=== PATIENT | female | born 1975 | race Two or more races ===

== ENCOUNTER 2020-01-17 14:02 | Outpatient (REF) | payer MEDICARE, MEDICAID, SELFPAY | END 2020-01-17 14:03 | disposition home or self-care (01) | LOC: HO.HMGCLDS 14:02 | PROVIDERS: PCP Internal Medicine; Visit Provider Internal Medicine | DX: Z20.828 Contact with and (suspected) exposure to other viral communicable diseases (principal) | CPT/HCPCS: 87635 ==

== ENCOUNTER 2020-05-12 14:32 | Outpatient (REF) | payer MEDICARE, MEDICAID, SELFPAY | END 2020-05-12 14:33 | disposition home or self-care (01) | LOC: HO.HMGCLDS 14:32 | PROVIDERS: PCP Internal Medicine; Visit Provider Internal Medicine | DX: Z20.822 Contact with and (suspected) exposure to COVID-19 (principal) | CPT/HCPCS: 36415; C9803; U0003; U0005 ==

== ENCOUNTER 2020-07-24 10:18 | Outpatient (REF) | payer MEDICARE, MEDICAID, SELFPAY | END 2020-07-24 10:19 | disposition home or self-care (01) | LOC: HO.HMGCLDS 10:18 | PROVIDERS: PCP Internal Medicine; Visit Provider Internal Medicine | DX: Z20.822 Contact with and (suspected) exposure to COVID-19 (principal) | CPT/HCPCS: C9803; U0003; U0005 ==

== ENCOUNTER 2020-08-05 08:12 | Outpatient (REF) | payer MEDICARE, MEDICAID, SELFPAY | END 2020-08-05 08:13 | disposition home or self-care (01) | LOC: HO.HMGCLDS 08:12 | PROVIDERS: PCP Internal Medicine; Visit Provider Internal Medicine | DX: Z20.822 Contact with and (suspected) exposure to COVID-19 (principal) | CPT/HCPCS: C9803; U0003; U0005 ==

== ENCOUNTER 2020-09-18 08:46 | Outpatient (REF) | payer MEDICARE, MEDICAID, SELFPAY | END 2020-09-18 08:47 | disposition home or self-care (01) | LOC: HO.HMGCLDS 08:46 | PROVIDERS: PCP Internal Medicine; Visit Provider Internal Medicine | DX: Z20.822 Contact with and (suspected) exposure to COVID-19 (principal) | CPT/HCPCS: C9803; U0003; U0005 ==

== ENCOUNTER 2020-11-10 13:37 | Outpatient (REF) | payer MEDICARE, MEDICAID, SELFPAY | END 2020-11-10 13:38 | disposition home or self-care (01) | LOC: HO.HMGCLDS 13:37 | PROVIDERS: PCP Internal Medicine; Visit Provider Internal Medicine | DX: Z20.822 Contact with and (suspected) exposure to COVID-19 (principal) | CPT/HCPCS: C9803; U0003; U0005 ==

== ENCOUNTER 2021-03-12 11:19 | Outpatient (REF) | payer MEDICARE, MEDICAID, SELFPAY ==
--- NOTE | ~2021-03-12 | CT_ITS ---
EXAMINATION: CT ABDOMEN AND PELVIS WITH CONTRAST CLINICAL INFORMATION: Right ovarian cyst COMPARISON: None TECHNIQUE: Multidetector volumetric images were obtained from the superior aspect of the liver through the pubic symphysis following administration 85 mL of Omnipaque 350 intravenous contrast. Sagittal and coronal reformatted images were obtained on the technologist's workstation. Oral contrast: Yes This CT examination was performed using dose optimization techniques as appropriate, variously including the following: *Automated exposure control *Adjustment of mA and/or kV according to patient size (this includes techniques or standardized protocols for targeted exams where dose is matched to indication/reason for exam; i.e. extremities or head) *Use of iterative reconstruction technique DLP: 302 mGy-cm FINDINGS: LUNG BASES: The visualized lung bases are unremarkable. LIVER, GALLBLADDER, AND BILIARY TREE: The liver is normal in size, shape, and attenuation. There is a 5 mm low-attenuation lesion in the medial segment of the left lobe of the liver axial image 17 series 3. This is too small to characterize but probably represents a small cyst. No other focal hepatic lesion or biliary ductal dilatation is present. The gallbladder is unremarkable with no evidence of radiopaque gallstones, gallbladder wall thickening, or obvious pericholecystic inflammatory changes. PANCREAS: Unremarkable. SPLEEN: Unremarkable. ADRENAL GLANDS: Unremarkable. KIDNEYS AND URETERS: The kidneys are normal in size, shape, and attenuation. No hydronephrosis, hydroureter, or calculi seen. No perinephric stranding. BLADDER: Unremarkable. GASTROINTESTINAL TRACT: The small and large bowel are unremarkable. The appendix is is not identified. No inflammatory changes are seen in the right lower quadrant.. ABDOMINAL WALL: No significant hernia is appreciated. LYMPH NODES: Normal. VASCULAR: Unremarkable. PELVIC VISCERA: There is a 2 cm simple-appearing right ovarian cyst. There is a 1.8 cm lesion in the left uterine body probably representing a fibroid. OSSEOUS STRUCTURES: Unremarkable. CT/CT abdomen pelvis w con IMPRESSION: Small 2 cm right ovarian cyst. 1.8 cm lesion in the left uterine body probably representing a fibroid. Fleischner guidelines were followed.
[2021-03-12] MEDS: iohexoL 350 MG/ML 100 ML INFUS..BTL IV (12:41)
== END 2021-03-12 11:20 | disposition home or self-care (01) ==
LOC: HO.CT 11:19
PROVIDERS: PCP Internal Medicine; Visit Provider Internal Medicine
DX: N83.201 Unspecified ovarian cyst, right side (principal)
CPT/HCPCS: 74177; Q9967

== ENCOUNTER 2021-03-18 14:36 | Outpatient (REF) | payer MEDICARE, MEDICAID, SELFPAY ==
[2021-03-18 16:31] LABS: Alanine Aminotransferase 16 U/L (0-31); Albumin Level 4.3 g/dL (3.5-5.0); Alkaline Phosphatase 79 U/L (39-117); Anion Gap 13 (12-20); Aspartate Amino Transferase 17 U/L (5-31); Bilirubin Total 0.3 mg/dL (0.0-1.0); Blood Urea Nitrogen 10 mg/dL (9-16); Calcium 9.7 mg/dL (8.4-10.2); Carbon Dioxide 24 mmol/L (22-29); Chloride 106 mmol/L (96-108); Estimated Glomerular Filt Rate > 60; Glucose Random 84 mg/dL (60-115); Potassium 4.4 mmol/L (3.3-5.1); Sodium 139 mmol/L (135-145); Total Protein 7.3 g/dL (6.5-8.0)
== END 2021-03-18 14:37 | disposition home or self-care (01) ==
LOC: HO.LAB 14:36
PROVIDERS: PCP Internal Medicine; Referring Provider Internal Medicine; Visit Provider Nurse Practitioner
DX: K21.9 Gastro-esophageal reflux disease without esophagitis (principal)
CPT/HCPCS: 36415; 80053; 99202

== ENCOUNTER 2021-06-17 08:59 | Outpatient (REF) | payer MEDICARE, MEDICAID, SELFPAY ==
--- NOTE | ~2021-06-17 | US_ITS ---
EXAMINATION: US ABDOMEN COMPLETE CLINICAL INFORMATION: Gastroesophageal reflux disease without esophagitis. COMPARISON: CT abdomen and pelvis 03/12/2021. TECHNIQUE: Real-time imaging of the abdominal viscera. FINDINGS: PANCREAS: Normal. ABDOMINAL AORTA: The proximal and mid aorta are normal in appearance. The distal aorta is obscured by bowel gas. INFERIOR VENA CAVA: Visualized portions are normal. LIVER: The liver is normal in size. The liver contour is normal. Parenchymal echogenicity is normal. There is a simple cyst in the inferior right hepatic lobe measuring up to 0.8 cm. There is no intrahepatic biliary duct dilatation seen. GALLBLADDER: Normal. The gallbladder is physiologically distended without evidence of stones, sludge, polyps, wall thickening or pericholecystic fluid. COMMON BILE DUCT: Normal in caliber measuring 0.4 cm in diameter. RIGHT KIDNEY: Normal. No hydronephrosis. No renal calculi or focal parenchymal lesions. The kidney measures 10.7 cm in maximum dimension. LEFT KIDNEY: Normal. No hydronephrosis. No renal calculi or focal parenchymal lesions. The kidney measures 9.8 cm in maximum dimension. SPLEEN: Normal. The spleen measures 8.4 cm in maximum dimension. FREE FLUID: None. US/US abdomen complete IMPRESSION: Simple cyst in the right hepatic lobe. Otherwise normal abdominal ultrasound.
== END 2021-06-17 09:00 | disposition home or self-care (01) ==
LOC: HO.US 08:59
PROVIDERS: PCP Internal Medicine; Visit Provider Nurse Practitioner
DX: K21.9 Gastro-esophageal reflux disease without esophagitis (principal)
CPT/HCPCS: 76700

== ENCOUNTER → 2021-07-02 11:04 | Outpatient (BNVA) | payer MEDICARE, MEDICAID, SELFPAY | PROVIDERS: PCP Internal Medicine; Referring Provider Internal Medicine; Visit Provider Nurse Practitioner | DX: K21.9 Gastro-esophageal reflux disease without esophagitis (principal); R10.13 Epigastric pain | CPT/HCPCS: 99212 ==

== ENCOUNTER 2021-07-14 11:52 | Day surgery (SDC) | payer MEDICARE, MEDICAID, SELFPAY ==
[2021-07-14 13:04] LABS: UPreg QC Valid YES; Urine Pregnancy NEGATIVE (NEGATIVE)
[2021-07-14 13:16] VITALS: BMI 25.7
[2021-07-14 13:18] VITALS: BP 139/77; PULSE 56; RESP 16; TEMP 36.9; O2SAT 100
[2021-07-14] MEDS: Lactated Ringers 1,000 ML 50 ML IVCONT (13:59)
--- NOTE | 2021-07-14 13:59 | MHC.SHP ---
Pre-Procedural Eval Section A Date of Service: 07/14/21 Section B Chief Complaint: GERD Relevant Family History (Specify if Yes): No Relevant Social History: None Present Medications: see Short Stay Collaborative assessment Medical History: Significant History (asthma, fibromyalgia, degen disc disease) History of Previous Operations: No relevant previous surgery Allergies: Allergies Allergy/AdvReac Type Severity Reaction Status Date / Time No Known Allergies Allergy Verified 07/02/21 11:12 Review of Systems Sugical H&P ROS: Negative: Constitution, Cardiovascular, Respiratory, Neurological, Psychiatric, Hem-Onc, Allergic/Immunologic, Gastrointestinal, Genitourinary, Musculoskeletal, Integumentary, Endocrine and Eyes/Ears/Nose/Throat Exam Surgical H&P Exam: Normal: HEENT, Normal: Heart, Normal: Lungs, Normal: Extremities, Normal: Abdomen, Normal: Skin and Normal: Neurological Plan Diagnosis/Plan: Unchanged I have reviewed the history and physical and performed a pertinent physical examination on my patient. No changes have occurred unless specified.
--- NOTE | 2021-07-14 14:00 | PM.OP ---
Brief Operative Note Date of Service: 07/14/21 Pre-op diagnosis: GERD Post-op diagnosis: same Procedure: see op note Surgeon: Imtiaz Marcelino MD Anesthesia: MAC Was an Dynamometer Tester used for this Procedure?: No Estimated blood loss (mL): 0 Condition: stable Disposition: PACU
--- NOTE | 2021-07-14 14:01 | W.PM.OPN ---
Operative Note Operative Note Date of Service: 07/14/21 Narrative: Procedure Description: EGD Indication: GERD Anesthesia: MAC FLEXIBLE TRANSORAL UPPER GASTROINTESTINAL ENDOSCOPY UPPER ENDOSCOPY Consent: Indications for the procedure and potential complications of bleeding, perforation, reaction to medications and missed diagnosis were discussed with the patient and informed consent was obtained. Instrument: Olympus GIF H 190 J mid size upper endoscope Monitoring: Vital signs and clinical assessment, continuous EKG monitoring, Pulse oximetry, Carbon Dioxide monitoring and blood pressure monitoring were done throughout the procedure. Procedure: The patient was placed in the left lateral decubitis position and pre-procedure medications were administered and a bite block was placed. The endoscope was inserted into the mouth and advanced under direct vision to the third part of duodenum. A careful inspection was made as the upper endoscope was withdrawn including a retroflexed examination of the proximal stomach; Findings and interventions are described below. Findings: Larynx:normal Esophagus: GE junction at 38 cm, diaphragm hiatus at 38 cm, bogginess and erythema at GEJ. Bx taken from GEJ and random esophagus Stomach: Normal appearing mucosa. Biopsies were obtained. Grade 2 flap valve on retroflexed examination of the cardia. There was minimal gastric peristalsis. Duodenum: Normal bulb and descending duodenum, bx taken Intervention: Biopsies as noted above Impression/Findings: esophagitis possible gastroparesis PLAN: await BX, consider changing PPI as she has ongoing sx gastric emptying study, confirm drug hx
[2021-07-14 14:20] VITALS: BP 96/45; PULSE 59; RESP 16; TEMP 36.4; O2SAT 98
[2021-07-14 14:36] VITALS: BP 136/83; PULSE 57; RESP 16; TEMP 36.3; O2SAT 100
== END 2021-07-14 15:08 | disposition home or self-care (01) ==
PROVIDERS: Internal Medicine; PCP Internal Medicine; Visit Provider Internal Medicine Gastroenterology
PROC: 0DJ08ZZ Inspection of Upper Intestinal Tract, Via Natural or Artificial Opening Endoscopic (ICD-10-PCS; CPT 43235; principal; 2021-07-14 15:00)
DX: K21.00 Gastro-esophageal reflux disease with esophagitis, without bleeding (principal); K44.9 Diaphragmatic hernia without obstruction or gangrene; Z79.899 Other long term (current) drug therapy
CPT/HCPCS: 43239; 81025; 88305; 88342; J3010

== ENCOUNTER → 2021-08-03 14:10 | Outpatient (BNVA) | payer MEDICARE, MEDICAID, SELFPAY | PROVIDERS: PCP Internal Medicine; Referring Provider Internal Medicine; Visit Provider Nurse Practitioner | DX: K21.9 Gastro-esophageal reflux disease without esophagitis (principal); R10.13 Epigastric pain | CPT/HCPCS: 99212 ==

== ENCOUNTER 2021-08-10 15:12 | Outpatient (REF) | payer MEDICARE, MEDICAID, SELFPAY ==
--- NOTE | ~2021-08-10 | MM_ITS ---
EXAMINATION: MM SCREENING DIGITAL BREAST TOMOSYNTHESIS, BILATERAL CLINICAL INFORMATION: Screening. Asymptomatic. The lifetime risk of breast cancer based on the Tyrer-Cuzick Model is 12%. COMPARISON: Mammography: 10/25/2018 (baseline) TECHNIQUE: Digital breast tomosynthesis is performed in both the craniocaudal and mediolateral oblique views along with computer-aided detection (CAD). Synthesized 2D images are generated from the tomosynthesis. FINDINGS: The breasts are heterogeneously dense, which may obscure small masses (ACR BI-RADS breast composition Category c). Breast tissue composition borders on extremely dense. There is a fibronodular parenchymal pattern similar to prior exam. No significant mass or architectural abnormality or abnormal calcifications. The axilla and skin contours are unremarkable. MM/MM tomosynthesis screening BI IMPRESSION: No mammographic evidence of malignancy. ASSESSMENT: BI-RADS 1: Negative RECOMMENDATION: Routine annual mammography screening. This patient's information was entered into a reminder system with a target due date for their next mammogram.
== END 2021-08-10 15:13 | disposition home or self-care (01) ==
LOC: HO.MAMMO 15:12
PROVIDERS: Visit Provider Internal Medicine
DX: Z12.31 Encounter for screening mammogram for malignant neoplasm of breast (principal)
CPT/HCPCS: 77063; 77067

== ENCOUNTER 2021-08-17 12:53 | Outpatient (REF) | payer MEDICARE, MEDICAID, SELFPAY ==
[2021-08-17 13:29] LABS: Binax Internal Control QC Valid; Binax Now Covid-19 Ag Negative (Negative); Binax Performed by: HO.BONILM
== END 2021-08-17 12:54 | disposition home or self-care (01) ==
LOC: HO.HMGCLDS 12:53
PROVIDERS: Visit Provider Internal Medicine
DX: Z13.89 Encounter for screening for other disorder (principal)

== ENCOUNTER → 2021-08-21 08:11 | Outpatient (REF) | payer MEDICARE, MEDICAID, SELFPAY ==
--- NOTE | ~2021-08-21 | NM_ITS ---
EXAMINATION: NM RADIONUCLIDE SOLID FOOD GASTRIC EMPTYING 4-HOUR STUDY CLINICAL INFORMATION: Status post hysterectomy. Now presents with abdominal pain, bloating and gas. COMPARISON: None TECHNIQUE: A standard meal consisting of 4 oz of Egg Beaters brand tagged with 0.77 microcuries Tc-99m Sulfur Colloid labeled with 8 OZ Ensure was administered orally to the patient. Images were obtained using a dual head gamma camera in the anterior and posterior projections over of the stomach immediately post ingestion and at hourly intervals up to 4 hours post ingestion. The anterior and posterior counts at each time interval were averaged using the geometric mean and expressed as percentage of the immediate post ingestion counts. FINDINGS: There is good visualization of activity in the stomach immediately post ingestion. As the study progresses, there is good clearance of activity from the stomach and visualization of progressively increasing small bowel activity. By the end of the study, there is almost no retention noted in the stomach. Retention in the stomach at each time interval was: 1 hour 59% (normal 37%-90%) 2 hours 37% (normal 30%-60%) 3 hours 14% 4 hours 4% (normal 0%-10%) NM/NM gastric emptying study IMPRESSION: Normal 4-hour solid food gastric emptying study.
== END ==
LOC: HO.NUCMED 08:11
PROVIDERS: PCP Internal Medicine; Visit Provider Internal Medicine Gastroenterology
DX: R68.81 Early satiety (principal)
CPT/HCPCS: 78264; A9541

== ENCOUNTER 2021-08-27 12:39 | Outpatient (REF) | payer MEDICARE, MEDICAID, SELFPAY ==
--- NOTE | ~2021-08-27 | XR_ITS ---
EXAMINATION: XR CHEST CLINICAL INFORMATION: Moderate, persistent asthma COMPARISON: 03/22/2019 TECHNIQUE: 2 views of the chest were obtained. FINDINGS: No significant abnormality is noted involving the heart, lungs, mediastinum, bony thorax or soft tissues. XR/XR chest 2V IMPRESSION: Unremarkable examination. No interval change
[2021-08-27 13:26] LABS: MANUAL DIFF FLAG NO
[2021-08-27 13:35] LABS: Basophils Percent Auto 0.7 % (0-2); Eosinophils Absolute Auto 0.2 X10*3/uL (0.0-0.4); Hematocrit 34.6 % (37.0-47.0); Hemoglobin 10.5 g/dl (12.0-16.0); Imm Gran Abs Auto 0.01 X10*3/uL (0.00-0.03); Imm Gran Pct Auto 0.2 % (0.0-0.4); Lymphocytes Absolute Auto 1.4 X10*3/uL (1.2-4.9); Lymphocytes Percent Auto 24.2 % (20-40); Mean Corpuscular HGB Conc 30.3 g/dl (31.0-35.0); Mean Corpuscular Hemoglobin 22.7 pg (27.0-33.0); Mean Corpuscular Volume 74.9 fL (80.0-98.0); Mean Platelet Volume 10.4 fL (9.4-12.3); Monocytes Absolute Auto 0.8 X10*3/uL (0.1-1.2); Monocytes Percent Auto 13.1 % (2-11); Neutrophils Absolute Auto 3.5 x10*3/uL (2.0-8.3); Neutrophils Percent Auto 58.8 % (45-73); Platelet Count 369 X10*3/uL (160-400); Red Blood Count 4.62 X10*6/uL (4.20-5.50); Red Cell Distribution Width 19.1 % (11.0-16.0)
[2021-08-27 14:18] LABS: Alanine Aminotransferase 24 U/L (0-31); Albumin Level 4.1 g/dL (3.5-5.0); Alkaline Phosphatase 90 U/L (39-117); Anion Gap 10 (12-20); Aspartate Amino Transferase 17 U/L (5-31); Bilirubin Total 0.5 mg/dL (0.0-1.0); Blood Urea Nitrogen 10 mg/dL (9-16); Calcium 9.3 mg/dL (8.4-10.2); Carbon Dioxide 24 mmol/L (22-29); Chloride 107 mmol/L (96-108); Estimated Glomerular Filt Rate > 60; Glucose Random 90 mg/dL (60-115); Potassium 4.2 mmol/L (3.3-5.1); Sodium 137 mmol/L (135-145); Total Protein 7.2 g/dL (6.5-8.0)
== END 2021-08-27 12:40 | disposition home or self-care (01) ==
LOC: HO.XRAY 12:39
PROVIDERS: PCP Internal Medicine; Visit Provider Internal Medicine
DX: J45.41 Moderate persistent asthma with (acute) exacerbation (principal)
CPT/HCPCS: 36415; 71046; 80053; 85025

== ENCOUNTER → 2021-08-28 10:52 | Outpatient (BNVA) | payer SELFPAY | PROVIDERS: PCP Internal Medicine | DX: Z11.1 Encounter for screening for respiratory tuberculosis (principal) ==

== ENCOUNTER 2021-09-09 12:14 | Outpatient (REF) | payer OTHER, MEDICAID, SELFPAY ==
[2021-09-09 12:41] LABS: Binax Internal Control QC Valid; Binax Now Covid-19 Ag Negative (Negative); Binax Performed by: HO.BONILM
[2021-09-09 13:59] LABS: Hemoglobin 10.2 g/dl (12.0-16.0); Mean Corpuscular Hemoglobin 22.9 pg (27.0-33.0); Mean Corpuscular Volume 76.4 fL (80.0-98.0); Mean Platelet Volume 10.1 fL (9.4-12.3); Platelet Count 410 X10*3/uL (160-400); Red Blood Count 4.45 X10*6/uL (4.20-5.50); Red Cell Distribution Width 19.7 % (11.0-16.0); White Blood Count 5.6 X10*3/uL (4.8-10.8)
[2021-09-09 14:19] LABS: Thyroid Stimulating Hormone 0.89 uIU/mL (0.32-4.0)
[2021-09-09 14:37] LABS: Anion Gap 11 (12-20); Blood Urea Nitrogen 8 mg/dL (9-16); Calcium 9.5 mg/dL (8.4-10.2); Carbon Dioxide 25 mmol/L (22-29); Chloride 107 mmol/L (96-108); Estimated Glomerular Filt Rate > 60; Glucose Random 81 mg/dL (60-115); Potassium 4.8 mmol/L (3.3-5.1); Sodium 138 mmol/L (135-145)
== END 2021-09-09 12:15 | disposition home or self-care (01) ==
LOC: HO.HMGCLDS 12:14
PROVIDERS: Visit Provider Internal Medicine
DX: R53.83 Other fatigue (principal); J06.9 Acute upper respiratory infection, unspecified; Z20.822 Contact with and (suspected) exposure to COVID-19
CPT/HCPCS: 80048; 84443; 85027; 87811; C9803

== ENCOUNTER 2022-03-16 14:56 | Outpatient (REF) | payer OTHER, MEDICAID, SELFPAY ==
[2022-03-16 15:59] LABS: Influenza A PCR NEGATIVE (Negative); Influenza B PCR NEGATIVE (Negative); Resp Syncy Virus RNA Qual PCR NEGATIVE (Negative); SARS COV2 PCR INHOUSE NEGATIVE (Negative)
== END 2022-03-16 14:57 | disposition home or self-care (01) ==
LOC: HO.LAB 14:56
PROVIDERS: PCP Internal Medicine; Visit Provider Internal Medicine
DX: U07.1 COVID-19 (principal)
CPT/HCPCS: 0241U

== ENCOUNTER 2022-09-20 08:28 | Outpatient (REF) | payer OTHER, MEDICAID, SELFPAY ==
--- NOTE | ~2022-09-20 | MR_ITS ---
EXAMINATION: MR LUMBAR SPINE WITHOUT CONTRAST CLINICAL INFORMATION: Left-sided sciatica. COMPARISON: None available. TECHNIQUE: MRI of the lumbar spine was obtained using routine sequences without contrast. Slightly limited study with motion artifacts. FINDINGS: The discs are well-hydrated. There are no compression fractures or subluxations. The marrow signal is normal. There is no central canal stenosis. Very mild facet arthropathy noted at the L5-S1 level with a shallow left subarticular zone disc protrusion. No nerve root impingement is seen. The neural foramina are otherwise patent. The distal cord, conus tip, and cauda equina nerve roots are normal. The paraspinal soft tissues are unremarkable. MR/MR lumbar spine wo con IMPRESSION: Small left subarticular zone disc protrusion at the L5-S1 level without nerve root impingement. Additional mild facet arthropathy at this level. Otherwise, no central canal stenosis or foraminal narrowing.
== END 2022-09-20 08:29 | disposition home or self-care (01) ==
LOC: HO.MRI 08:28
PROVIDERS: PCP Internal Medicine; Visit Provider Internal Medicine
DX: M54.32 Sciatica, left side (principal)
CPT/HCPCS: 72148

== ENCOUNTER 2022-10-19 09:17 | Outpatient (AMB) | payer OTHER, MEDICAID, SELFPAY ==
--- NOTE | 2022-10-19 09:23 | A.OFFVIS_ITS ---
Intake Vital Signs 10/19/22 09:25 Height 5 ft 3 in Weight 167 lb 8.821 oz BMI 29.7 BP 134/74 Blood Pressure Location Lt brachial Position Sitting Pulse 55 Intake Visit Reasons: 6 week follow up Intake Note: Marivel presents in the office as a 6 week follow up. CC: She is not having any concerns. 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 She has occasional chills, but no N/V or fevers. She did not receive both the protonix and the famotidine, it sounds like she only has the famotidine. I will start a course of carafate 2 pills q noon to help and it the diarrhea persists will consider stool testing. She had some sort of study ordered by another provider that she needs to reschedule. She says that the leisa who did my camera procedure wants me to follow up with him. ROV 6 weeks with me, with Dr. Marcelino after gastric emptying study. (2) Epigastric pain: ?Code(s): R10.13 - Epigastric pain ? ? ? Medications: Refilled pantoprazole (Prot dimas) 40 mg? PO DAILY 3 0 days 30 tabs 6RF K21.9 - Gastro-eso phageal reflux dis ease without esoph agitis, R10.13 - E pigastric pain ? TODAY'S VISIT She ran out of the pantorpazole in the am but has had the famotidine. She recently had a hysterectomy and since then has had LLQ pain prior to BM in the am and a great deal of bloating. Will try bentyl 10mg qhs and qam 1-2 tabs and simethicone. Rov 4 weeks. PFSH Social History (Updated 10/19/22 @ 09:28 by JYOTI Vila) Alcohol intake: never Patient Tobacco Use Status: Never used Tobacco Review of Systems Const Denies fatigue, Denies fever(s), Denies night sweats, Denies poor appetite and Denies weight loss ENT Reports Normal hearing present, Denies dental pain, Denies dysphagia, Denies hearing loss, Denies mouth pain, Denies odynophagia, Denies throat swelling, Denies tongue swelling and Reports other (Dentition adequate) Card Reports no additional complaints Resp Reports no additional complaints GI Reports abdominal pain, Denies melena, Denies bloating, Denies hematochezia, Denies constipation, Reports GI cramping, Denies dysphagia, Denies excessive flatus, Denies early satiety, Reports heartburn, Denies diarrhea, Denies nausea, Denies odynophagia, Denies vomiting and Denies hematemesis Skin/Breast Denies pruritus, Denies lesions, Denies rash and Denies jaundice Neuro Reports Normal hearing present and Denies Abnormal speech present Endo Denies fatigue Aller/Immun Denies throat swelling and Denies tongue swelling Physical Exam Vital Signs: Last Vital Signs Pulse 55 10/19/22 09:25 BP 134/74 10/19/22 09:25 BMI result Body Mass Index 29.7 Const General: cooperative, no acute distress, well developed and well groomed Nutritional Appearance: average body habitus and well nourished Orientation/consciousness: oriented to person, oriented to place and oriented to time Limitations: No language barrier HEENT Head: Yes normocephalic and Yes atraumatic Eyes General: appearance normal, both eyes and all related structures Pupils: Equal, round and reactive pupils present Neck Neck: Yes normal visual inspection and Yes no lymphadenopathy Thyroid: Thyroid normal Resp Effort & Inspection: normal respiratory effort and able to speak in complete sentences Auscultation: clear to auscultation bilaterally Cardio Rate: regular rate Rhythm: regular rhythm Heart sounds: Normal, physiologic split S2 sound present Peripheral pulses: radial pulses present and posterior tibial pulses present GI Inspection: Yes distended and No Abdominal panniculus present Palpation (GI): Soft to palpation, nontender, no guarding, not rigid and No hepatosplenomegaly present Percussion: Yes normal to percussion Auscultation: normal bowel sounds Rectal Exam - Female: deferred Skin General skin exam: no rashes or lesions noted, turgor normal, skin not dry, no jaundice, No spider nevi and no striae Rashes: no rashes Nails: normal Neuro General: oriented to person, oriented to place and oriented to time Cranial nerves: Yes Equal, round and reactive pupils present and Yes Normal hearing present Speech: No Abnormal speech present Extrem General: Yes normal to inspection, No clubbing, No cyanosis and No edema Psych Appearance: grossly normal and well kempt Mental Status: mental status grossly normal Speech and movement: Normal speech and movement present Affect: normal affect Attitude: cooperative Thought process: Normal thought process present and not confabulating Thought content: Normal thought content present Insight: Limited insight present (Psych) Judgement: Limited judgement present (Psych) Assessment & Plan Assessment & Plan (1) Epigastric pain: Code(s): R10.13 - Epigastric pain Plan: She ran out of the pantorpazole in the am but has had the famotidine. She recently had a hysterectomy and since then has had LLQ pain prior to BM in the am and a great deal of bloating. Will try bentyl 10mg qhs and qam 1-2 tabs and simethicone. Rov 4 weeks. (2) GERD (gastroesophageal reflux disease): Code(s): K21.9 - Gastro-esophageal reflux disease without esophagitis (3) Hx of hysterectomy: Code(s): Z90.710 - Acquired absence of both cervix and uterus (4) Abdominal cramping: Code(s): R10.9 - Unspecified abdominal pain Medications: New dicyclomine 10 mg PO QID 120 caps 6RF R10.9 - Unspecified abdominal pain Refilled pantoprazole (Protonix) 40 mg PO DAILY 30 tabs 6RF 30 days K21.9 - Gastro-esop hageal reflux disease without esophagitis, R10.13 - Epigastric pain famotidine 40 mg PO BEDTIME 90 tabs 2RF Coding Level of Care Code Est Pt Level 3 (02482) Diagnoses Epigastric pain R10.13 GERD (gastroesophageal reflux disease) K21.9 Hx of hysterectomy Z90.710 Abdominal cramping R10.9
[2022-10-19 09:25] VITALS: BP 134/74; PULSE 55; BMI 29.7
== END 2022-10-19 10:05 | disposition home or self-care (01) ==
PROVIDERS: PCP Internal Medicine; Visit Provider Nurse Practitioner
DX: R10.13 Epigastric pain (principal); K21.9 Gastro-esophageal reflux disease without esophagitis; Z90.710 Acquired absence of both cervix and uterus; R10.9 Unspecified abdominal pain
CPT/HCPCS: 99213

== ENCOUNTER → 2022-10-19 09:17 | Outpatient (BNVA) | payer OTHER, MEDICAID, SELFPAY | PROVIDERS: PCP Internal Medicine; Visit Provider Nurse Practitioner ==

== ENCOUNTER 2023-01-24 10:11 | Outpatient (AMB) | payer OTHER, MEDICAID, SELFPAY ==
--- NOTE | 2023-01-24 10:14 | A.OFFVIS_ITS ---
Intake Vital Signs 01/24/23 10:19 Height 5 ft 3 in Weight 162 lb 8 oz BMI 28.8 BP 104/60 Blood Pressure Location Lt brachial Position Sitting Pulse 58 Pulse Source Pulse Oximeter Pulse Oximetry (%) 98 Oxygen Delivery Method Room Air Intake Visit Reasons: ENP-Bilateral leg numbness - Confirmed Intake Note: NPV for Bilateral numbness of legs Allergies No Known Allergies Allergy (Verified 01/24/23 10:15) HPI HPI Comments History of Present Illness Details 47 y/o female patient presents for new i n-person visit for lower back pain and bilateral legs and feet numbness. Pt reports the mid-lower back pain started many years ago and has worsened over the last couple of months. Pt states that the lower back electric shooting pain radiates to bilateral legs and feet. She has more pain on her right side of her back. She states that she needs to take a rest when she going up and down stairs due to back pain and leg heaviness. She denies back injury, but mentioned that she fell couple of times on the ice this year. Pt uses two pillows on her back while she is sitting to relieve the pain. She massage her feet usually and has sharp pain on her middle of foot and it radiates to upper legs. The lumbar spine MRI result reviewed. Small left subarticular zone disc protrusion at the L5-S1 level without nerve root impingement. Additional mild facet arthropathy at this level. Otherwise, no central canal stenosis or foraminal narrowing. Pt tried physical therapy couple of years ago but it did not help for back and pain. PFSH Family History (Updated 01/24/23 @ 10:19 by Melanie Jackson CMA) Family/Other Breast cancer Social History (Updated 01/24/23 @ 10:19 by Melanie Jackson CMA) Alcohol intake: never Patient Tobacco Use Status: Never used Tobacco Review of Systems Const All systems reviewed & are unremarkable except as noted in HPI and below ENT Reports Normal hearing present Neuro Reports Normal hearing present Physical Exam Vital Signs: Last Vital Signs Pulse 58 01/24/23 10:19 BP 104/60 01/24/23 10:19 Pulse Ox 98 01/24/23 10:19 Oxygen Delivery Method Room Air 01/24/23 10:19 BMI result Body Mass Index 28.8 Const General: cooperative Nutritional Appearance: overweight Orientation/consciousness: patient oriented x3 Neck Other: Bilateral trapezius muscle tightenss. Neck: Yes full ROM and Yes supple Resp Effort & Inspection: normal respiratory effort and able to speak in complete sentences Back/Spine/Pelvis Other: mild to lower back muscle pain R>L. Neuro General: patient oriented x3 and moves all extremities Cranial nerves: Yes Bilaterally intact EOM present, Yes Normal facial strength present, Yes Midline tongue present, Yes Normal hearing present, Yes Ability to bilaterally rotate head present and Yes Ability to bilaterally elevate shoulders present Cognition (Neuro): normal cognition Gait exam (Neuro): Antalgic gait present Motor exam (neuro): 5/5 motor strength present throughout, Pronator motor function not present and no tremor noted Deep tendon reflexes (DTR's): Right brachioradialis reflex intensity grade: 2+, Left brachioradialis reflex intensity grade: 2+, Right patellar reflex intensity grade: 2+ and Left patellar reflex intensity grade: 2+ Psych Appearance: grossly normal Mental Status: mental status grossly normal Speech and movement: Normal speech and movement present Affect: normal affect Attitude: cooperative Assessment & Plan Assessment & Plan (1) Lower back pain: Code(s): M54.50 - Low back pain, unspecified (2) Lumbar degenerative disc disease: Code(s): M51.36 - Other intervertebral disc degeneration, lumbar region (3) Numbness in feet: Code(s): R20.0 - Anesthesia of skin Plan Refer patient to physiatry for lower back pain. Advised patient to try baclofen 5 mg with magnesium 400 mg qHS for muscle spasm. Orders: Referrals Physiatry Referral M51.36 - Other intervertebral disc degeneration, lumbar region, M54.32 - Sciatica, left side, M54.9 - Dorsalgia, unspecified Medications: New baclofen 5 mg PO BEDTIME 30 days 30 tabs 1RF magnesium oxide 400 mg PO DAILY 30 days 30 tabs 6RF Coding Level of Care Code New Pt Level 4 (85266) Diagnoses Lower back pain M54.50 Lumbar degenerative disc disease M51.36 Numbness in feet R20.0
[2023-01-24 10:19] VITALS: BP 104/60; PULSE 58; O2SAT 98; BMI 28.8
== END 2023-01-24 10:54 | disposition home or self-care (01) ==
PROVIDERS: PCP Internal Medicine; Visit Provider Nurse Practitioner Family
DX: M54.50 Low back pain, unspecified (principal); M51.36 Other intervertebral disc degeneration, lumbar region; R20.0 Anesthesia of skin
CPT/HCPCS: 99204

== ENCOUNTER → 2023-01-24 10:11 | Outpatient (BNVA) | payer OTHER, MEDICAID, SELFPAY | PROVIDERS: PCP Internal Medicine; Visit Provider Nurse Practitioner Family ==

== ENCOUNTER 2023-05-07 10:43 | Outpatient (REF) | payer MEDICARE, SELFPAY ==
[2023-05-07 12:49] LABS: Basophils Absolute Auto 0.1 X10*3/uL (0.0-0.2); Basophils Percent Auto 0.9 % (0-2); Eosinophils Absolute Auto 0.5 X10*3/uL (0.0-0.4); Eosinophils Percent Auto 6.7 % (0-4); Hematocrit 39.1 % (37.0-47.0); Hemoglobin 13.2 g/dl (12.0-16.0); Imm Gran Abs Auto 0.01 X10*3/uL (0.00-0.03); Imm Gran Pct Auto 0.1 % (0.0-0.4); Lymphocytes Absolute Auto 1.1 X10*3/uL (1.2-4.9); Lymphocytes Percent Auto 16.3 % (20-40); MANUAL DIFF FLAG SCAN; Mean Corpuscular HGB Conc 33.8 g/dl (31.0-35.0); Mean Corpuscular Hemoglobin 29.3 pg (27.0-33.0); Mean Corpuscular Volume 86.7 fL (80.0-98.0); Monocytes Percent Auto 14.4 % (2-11); Neutrophils Absolute Auto 4.1 x10*3/uL (2.0-8.3); Neutrophils Percent Auto 61.6 % (45-73); PLT CLUMP 1; Red Blood Count 4.51 X10*6/uL (4.20-5.50); Red Cell Distribution Width 12.9 % (11.0-16.0); SCAN SMEAR FLAG 1
[2023-05-07 13:37] LABS: White Blood Count 6.7 X10*3/uL (4.8-10.8)
[2023-05-07 13:39] LABS: SLIDE REVIEW VERIFIED
[2023-05-07 13:40] LABS: Rheumatoid Factor < 13.0 IU/mL (<15.0)
[2023-05-07 13:45] LABS: Alanine Aminotransferase 22 U/L (0-31); Alkaline Phosphatase 94 U/L (39-117); Anion Gap 15 (12-20); Aspartate Amino Transferase 22 U/L (5-31); Bilirubin Total 0.4 mg/dL (0.0-1.0); Blood Urea Nitrogen 8 mg/dL (9-16); Calcium 9.1 mg/dL (8.4-10.2); Carbon Dioxide 20 mmol/L (22-29); Chloride 109 mmol/L (96-108); Estimated Glomerular Filt Rate > 60; Glucose Random 69 mg/dL (60-115); Potassium 3.9 mmol/L (3.3-5.1); Sodium 140 mmol/L (135-145); Total Protein 7.3 g/dL (6.5-8.0)
[2023-05-16 09:59] LABS: ANA Pattern 2 Nuclear, Homogeneous; Anti Nuclear Antibody Pattern Nuclear, Nucleolar; Anti Nuclear Antibody Screen POSITIVE (NEGATIVE)
== END 2023-05-07 10:44 | disposition home or self-care (01) ==
LOC: HO.LAB 10:43
PROVIDERS: PCP Internal Medicine; Visit Provider Internal Medicine
DX: R60.0 Localized edema (principal)
CPT/HCPCS: 36415; 80053; 85025; 85652; 86038; 86039; 86431

== ENCOUNTER 2023-05-13 13:46 | Outpatient (REF) | payer MEDICARE, SELFPAY ==
[2023-05-13 14:10] LABS: MANUAL DIFF FLAG NO
[2023-05-13 14:16] LABS: Basophils Absolute Auto 0.1 X10*3/uL (0.0-0.2); Basophils Percent Auto 0.8 % (0-2); Eosinophils Absolute Auto 0.2 X10*3/uL (0.0-0.4); Eosinophils Percent Auto 3.1 % (0-4); Hematocrit 39.3 % (37.0-47.0); Hemoglobin 13.1 g/dl (12.0-16.0); Imm Gran Abs Auto 0.01 X10*3/uL (0.00-0.03); Imm Gran Pct Auto 0.2 % (0.0-0.4); Lymphocytes Absolute Auto 1.7 X10*3/uL (1.2-4.9); Mean Corpuscular HGB Conc 33.3 g/dl (31.0-35.0); Mean Corpuscular Hemoglobin 28.6 pg (27.0-33.0); Mean Corpuscular Volume 85.8 fL (80.0-98.0); Mean Platelet Volume 9.6 fL (9.4-12.3); Monocytes Absolute Auto 0.4 X10*3/uL (0.1-1.2); Monocytes Percent Auto 6.6 % (2-11); Neutrophils Percent Auto 62.3 % (45-73); Platelet Count 403 X10*3/uL (160-400); Red Blood Count 4.58 X10*6/uL (4.20-5.50); Red Cell Distribution Width 12.5 % (11.0-16.0); White Blood Count 6.4 X10*3/uL (4.8-10.8)
[2023-05-13 14:54] LABS: Erythrocyte Sedimentation Rate 14 MM/HR (0-20)
[2023-05-13 15:08] LABS: Alanine Aminotransferase 26 U/L (0-31); Albumin Level 4.4 g/dL (3.5-5.0); Alkaline Phosphatase 96 U/L (39-117); Anion Gap 12 (12-20); Aspartate Amino Transferase 20 U/L (5-31); Bilirubin Total 0.4 mg/dL (0.0-1.0); Blood Urea Nitrogen 9 mg/dL (9-16); Calcium 9.6 mg/dL (8.4-10.2); Carbon Dioxide 25 mmol/L (22-29); Chloride 105 mmol/L (96-108); Estimated Glomerular Filt Rate > 60; Glucose Random 84 mg/dL (60-115); Potassium 4.2 mmol/L (3.3-5.1); Sodium 138 mmol/L (135-145); Total Protein 7.6 g/dL (6.5-8.0)
[2023-05-13 15:10] LABS: Rheumatoid Factor < 13.0 IU/mL (<15.0)
[2023-05-17 10:44] LABS: ANA Pattern 2 Nuclear, Speckled; ANA Titer 2 1:40 titer; Anti Nuclear Antibody Pattern Nuclear, Nucleolar; Anti Nuclear Antibody Screen POSITIVE (NEGATIVE)
== END 2023-05-13 13:47 | disposition home or self-care (01) ==
LOC: HO.LAB 13:46
PROVIDERS: PCP Internal Medicine; Visit Provider Internal Medicine
DX: R60.0 Localized edema (principal)
CPT/HCPCS: 36415; 80053; 85025; 85652; 86038; 86039; 86431

== ENCOUNTER 2023-06-06 14:38 | Outpatient (REF) | payer MEDICARE, SELFPAY ==
[2023-06-06 16:03] LABS: MANUAL DIFF FLAG NO
[2023-06-06 17:17] LABS: Basophils Percent Auto 0.7 % (0-2); Eosinophils Absolute Auto 0.2 X10*3/uL (0.0-0.4); Eosinophils Percent Auto 4.3 % (0-4); Hematocrit 37.6 % (37.0-47.0); Hemoglobin 12.7 g/dl (12.0-16.0); Imm Gran Abs Auto 0.02 X10*3/uL (0.00-0.03); Imm Gran Pct Auto 0.4 % (0.0-0.4); Lymphocytes Absolute Auto 1.6 X10*3/uL (1.2-4.9); Lymphocytes Percent Auto 28.7 % (20-40); Mean Corpuscular HGB Conc 33.8 g/dl (31.0-35.0); Mean Corpuscular Hemoglobin 28.9 pg (27.0-33.0); Mean Corpuscular Volume 85.6 fL (80.0-98.0); Mean Platelet Volume 10.4 fL (9.4-12.3); Monocytes Absolute Auto 0.5 X10*3/uL (0.1-1.2); Monocytes Percent Auto 8.5 % (2-11); Neutrophils Absolute Auto 3.1 x10*3/uL (2.0-8.3); Neutrophils Percent Auto 57.4 % (45-73); Platelet Count 393 X10*3/uL (160-400); Red Blood Count 4.39 X10*6/uL (4.20-5.50); Red Cell Distribution Width 12.8 % (11.0-16.0); White Blood Count 5.4 X10*3/uL (4.8-10.8)
[2023-06-06 17:19] LABS: Appearance Urine Clear; Color Urine Yellow; Glucose Urine UA Negative (Negative); Leukocyte Esterase Urine Negative (Negative); Nitrite Urine Negative (Negative); Urine Blood Negative (Negative); Urine Ketones Negative (Negative); Urine Protein Negative (Neg-Trace)
[2023-06-06 17:23] LABS: Bacteria Urine None Seen (None Seen); Hyaline Casts Urine 0-2 /LPF (0-2); RBC Urine 0-2 /HPF (0-2); Squamous Epithelial Cell Urine 0-2 /HPF (0-2); WBC Urine 0-5 /HPF (0-5)
[2023-06-06 17:44] LABS: Alanine Aminotransferase 17 U/L (0-31); Albumin Level 4.3 g/dL (3.5-5.0); Alkaline Phosphatase 98 U/L (39-117); Anion Gap 14 (12-20); Aspartate Amino Transferase 16 U/L (5-31); Bilirubin Total 0.3 mg/dL (0.0-1.0); Blood Urea Nitrogen 9 mg/dL (9-16); C Reactive Protein < 0.10 mg/dL (< or = 0.50); Calcium 8.9 mg/dL (8.4-10.2); Carbon Dioxide 23 mmol/L (22-29); Chloride 107 mmol/L (96-108); Estimated Glomerular Filt Rate > 60; Glucose Random 81 mg/dL (60-115); Potassium 3.7 mmol/L (3.3-5.1); Sodium 140 mmol/L (135-145); Total Protein 7.5 g/dL (6.5-8.0)
[2023-06-06 17:56] LABS: Erythrocyte Sedimentation Rate 16 MM/HR (0-20)
[2023-06-06 17:58] LABS: Creatinine Urine 100.38 mg/dL; Total Protein Urine Random < 7 mg/dL (<12)
[2023-06-07 08:26] LABS: HBc Num1 0.12 S/CO (0.00-0.79); HBsAGNum1 0.38 S/CO (0.00-0.99); Hepatitis B Core Antibody Nonreactive (Nonreactive); Hepatitis B Surface Antigen Negative (Negative); ~HepC Num1 0.12 S/CO (0.00-0.79); ~Hepatitis A Antibody IgM Nonreactive (Nonreactive); ~Hepatitis B Surface Antibody REACTIVE (Nonreactive); ~Hepatitis C Antibody Nonreactive (Nonreactive)
[2023-06-08 05:23] LABS: Complement C3 137 mg/dL (83-193)
[2023-06-08 08:35] LABS: Anti DNA DS Antibody <1 IU/mL; Antibody to SS-A Antigen <1.0 NEG AI (<1.0 NEG); Antibody to SS-B Antigen <1.0 NEG AI (<1.0 NEG); SM/Ribonucleoprotein Ab <1.0 NEG AI (<1.0 NEG); Smith Protein <1.0 NEG AI (<1.0 NEG)
[2023-06-08 09:43] LABS: Prot Elec - Albumin 4.3 g/dL (3.8-4.8); Prot Elec - Alpha1 0.3 g/dL (0.2-0.3); Prot Elec - Alpha2 0.6 g/dL (0.5-0.9); Prot Elec - Beta 1 0.5 g/dL (0.4-0.6); Prot Elec - Beta 2 0.4 g/dL (0.2-0.5); Prot Elec - Gamma 1.1 g/dL (0.8-1.7); Prot Elec - Total Protein 7.2 g/dL (6.1-8.1)
[2023-06-08 17:19] LABS: Cyclic Citrullinated Peptide <16 UNITS
[2023-06-09 08:29] LABS: IgA 163 mg/dL (47-310); IgG 1238 mg/dL (600-1640); IgM 133 mg/dL (50-300)
[2023-06-10 07:24] LABS: DNAds, Crithidia Antibody Negative (Negative)
[2023-06-16 20:19] LABS: Centromere Protein A Ab <11 SI (<11); Centromere Protein B Ab <11 SI (<11); Fibrillarin Ab <11 SI (<11); PM SCL 100 Ab <11 SI (<11); PM SCL 75 Ab <11 SI (<11); RNA Polymerase III RP11 Ab <11 SI (<11); RNA Polymerase III RP155 Ab <11 SI (<11); SCL-70 Extractable Nuclear Ab <11 SI (<11); Th-To Ab <11 SI (<11); U1 SNRNP RNP 70KD <11 SI (<11); U1 SNRNP RNP A <11 SI (<11); U1 SNRNP RNP C <11 SI (<11)
== END 2023-06-06 14:39 | disposition home or self-care (01) ==
LOC: HO.LAB 14:38
PROVIDERS: PCP Internal Medicine; Visit Provider Student in an Organized Health Care Education/Training Program
DX: Z11.59 Encounter for screening for other viral diseases (principal); M32.9 Systemic lupus erythematosus, unspecified; M34.9 Systemic sclerosis, unspecified; M25.50 Pain in unspecified joint; R76.8 Other specified abnormal immunological findings in serum; Z72.89 Other problems related to lifestyle
CPT/HCPCS: 36415; 80053; 81001; 82570; 82784; 84156; 84165; 84182; 85025; 85652; 86140; 86160; 86200; 86225; 86235; 86255; 86334; 86704; 86706; 86709; 86803; 87340; 99202

== ENCOUNTER 2023-06-06 14:38 | Outpatient (AMB) | payer MEDICARE, SELFPAY ==
[2023-06-06 15:00] VITALS: BP 130/76; PULSE 55; TEMP 36.3; O2SAT 98; BMI 27.8
--- NOTE | 2023-06-06 15:00 | MHC.OFFVIS ---
Intake Vital Signs 06/06/23 15:00 Height 5 ft 3 in Weight 157 lb 3.033 oz BMI 27.8 BP 130/76 Blood Pressure Location Rt brachial Position Sitting Pulse 55 Pulse Source Pulse Oximeter Temp 97.3 F Temp Source Skin Pulse Oximetry (%) 98 Oxygen Delivery Method Room Air Intake Visit Reasons: +TESSA Intake Note: New patient, referred by Dr. Jefferson, presents today for +TESSA consult. Intelligence Consultant Required: No Accompanied by: Self / Same As Patient Allergies No Known Allergies Allergy (Verified 06/06/23 15:02) Medication List - Last Reconciled 06/06/23 by Lana Lizarraga MD albuterol sulfate 90 mcg/actuation (Ventolin HFA) 0 mcg inhalation baclofen 5 mg PO BEDTIME 30 days celecoxib 200 mg PO DAILY dicyclomine 10 mg PO QID famotidine 40 mg PO BEDTIME fluticasone propion-salmeterol 250-50 mcg/dose (Advair Diskus) 1 ea inhalation BID hydroxychloroquine 200 mg PO DAILY ibuprofen 800 mg PO BID PRN magnesium oxide 400 mg PO DAILY 30 days pantoprazole 40 mg PO DAILY tramadol mg PO HPI HPI Comments History of Present Illness Details This is a 47-year-old female this is a 47-year-old female who presents for 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 Patient stated that for the last 5-6 years she has been having diffuse pain in multiple joints including back, knees, ankles, hands, elbows. Over the last 3 weeks however she has noticed swelling of her elbows, ankles. The pain has been excruciating recently. She was prescribed Celebrex, baclofen and hydroxychloroquine by her PCP over the last 2 weeks. She also takes Motrin 400 mg daily in order to get through the day. She also notices hair loss. She does not see clumps of hair on the pillow. She denies any significant skin rashes. Denies any history of DVT/PE. No known history of autoimmune rheumatic disease. Patient had 2 pregnancies and no abortions or miscarriages. 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 Female Reproductive History Menstrual Total pregnancies: 2 Full term: 2 Review of Systems Const Reports weakness Eyes Reports blurry vision Musc Reports back pain, Reports arthralgias, Reports joint swelling, Reports limited range of motion and Reports stiffness Skin/Breast Reports alopecia and Reports rash Neuro Reports weakness Psych Reports anxiety Physical Exam Vital Signs: Last Vital Signs Temp 97.3 F 06/06/23 15:00 Pulse 55 06/06/23 15:00 BP 130/76 06/06/23 15:00 Pulse Ox 98 06/06/23 15:00 Oxygen Delivery Method Room Air 06/06/23 15:00 BMI result Body Mass Index 27.8 Const General: cooperative, healthy appearing and in distress Nutritional Appearance: overweight Orientation/consciousness: patient oriented x3 Limitations: no limitations HEENT Head: Yes normocephalic and Yes atraumatic Mouth: moist mucous membranes Resp Effort & Inspection: normal respiratory effort and able to speak in complete sentences Auscultation: clear to auscultation bilaterally Cardio Rate: regular rate Rhythm: regular rhythm Skin General skin exam: no rashes or lesions noted Neuro General: patient oriented x3 Extrem Other: Bilateral tender wrists and pain with flexion and extension Few tender MCPs, PIPs, DIPs bilaterally Tenderness at the common extensor origin bilaterally with positive resisted wrist extension test Diffuse fibromyalgia tender points Normal nailfold capillaroscopy Assessment & Plan Assessment & Plan (1) TESSA positive: Code(s): R76.8 - Other specified abnormal immunological findings in serum Plan: This is a 47-year-old female who presents for evaluation of positive TESSA in the setting of diffuse pain. Will order comprehensive serology to screen for underlying autoimmune rheumatic disease. Advised patient to hydroxychloroquine for now. Plan I spent 47 minutes reviewing patient's chart, evaluating patient, ordering diagnostic workup, counseling patient and documenting in the chart Orders: Orders Complete Blood Count Auto Diff Today M32.9 - Systemic lupus erythematosus, unspecified Comprehensive Met. Panel Today M32.9 - Systemic lupus erythematosus, unspecified Erythrocyte Sedimentation Rate Today M32.9 - Systemic lupus erythematosus, unspecified Immunofixation Pnl, Serum Today M32.9 - Systemic lupus erythematosus, unspecified Protein Electrophoresis, Serum Today M32.9 - Systemic lupus erythematosus, unspecified Complement C4 Today M32.9 - Systemic lupus erythematosus, unspecified Sjogren's Antibodies Today M32.9 - Systemic lupus erythematosus, unspecified UA w Microscopic Today M32.9 - Systemic lupus erythematosus, unspecified Scleroderma 12 Panel Today M34.9 - Systemic sclerosis, unspecified Cyclic Citrullinated Peptide Today M25.50 - Pain in unspecified joint C Reactive Protein Today M32.9 - Systemic lupus erythematosus, unspecified Hepatitis A,B,C Profile Today Z11.59 - Encounter for screening for other viral diseases Anti Extractable Nuclear Ag Today M32.9 - Systemic lupus erythematosus, unspecified Anti DNA DS Antibody Today M32.9 - Systemic lupus erythematosus, unspecified Complement C3 Today M32.9 - Systemic lupus erythematosus, unspecified DNA Double Stranded-Crithidia Today M32.9 - Systemic lupus erythematosus, unspecified Protein Creatinine Ratio, Ur Today M32.9 - Systemic lupus erythematosus, unspecified Coding Level of Care Code New Pt Level 4 (45302) Diagnoses TESSA positive R76.8
== END 2023-06-06 15:34 | disposition home or self-care (01) ==
PROVIDERS: PCP Internal Medicine; Visit Provider Student in an Organized Health Care Education/Training Program
DX: R76.8 Other specified abnormal immunological findings in serum (principal)
CPT/HCPCS: 99204

== ENCOUNTER 2023-06-21 13:58 | Outpatient (AMB) | payer MEDICARE, SELFPAY ==
[2023-06-21 14:03] VITALS: BP 126/75; PULSE 73; BMI 28.7
--- NOTE | 2023-06-21 14:03 | A.OFFVIS_ITS ---
Intake Vital Signs 06/21/23 14:03 Height 5 ft 3 in Weight 161 lb 13.109 oz BMI 28.7 BP 126/75 Blood Pressure Location Lt brachial Position Sitting Pulse 73 Intake Visit Reasons: Med refill PT N/S last 2 appt Intake Note: Patient presents in follow up of GERD. CC: Patient c/o left lower pelvic pain. Denies other GI symptoms. Physical Therapist Aide Required: No Allergies No Known Allergies Allergy (Verified 06/21/23 14:11) HPI Med refill PT N/S last 2 appt HPI Details Assessment & Plan (1) Epigastric pain: ?Code(s): R10.13 - Epigastric pain ?Plan: She ran out of the pantorpazole in the am but has had the famotidine. She recently had a hysterectomy and since then has had LLQ pain prior to BM in the am and a great deal of bloating. Will try bentyl 10mg qhs and qam 1-2 tabs and simethicone. Rov 4 weeks. (2) GERD (gastroesophageal reflux diseas e): ?Code(s): K21.9 - Gastro-esophageal reflux disease without esophagitis (3) Hx of hysterectomy: ?Code(s): Z90.710 - Acquired absence of both cervix and uterus (4) Abdominal cramping: ?Code(s): R10.9 - Unspecified abdominal pain ? ? ? Medications: New dicyclomine 10 mg PO QID 120 c aps 6RF R10.9 - Unspecifie d abdominal pain ? Refilled pantoprazole (Prot dimas) 40 mg PO DAILY 30 tabs 6RF 30 days K21.9 - Gastro-eso phageal reflux dis ease without esoph agitis, R10.13 - E pigastric pain ? famotidine 40 mg PO BEDTIME 9 0 tabs 2RF ? TODAY'S VISIT Patient has been lost to follow-up since 10/2022. She has been having more severe LLQ cramping, she feels that the bentyl helps a little bit. I want her to increase to 2 pills qhs and qam to see if this helps better. This has been a problem since her fallopian tube removal. She would like an US and I will order one, but this may be cramping because of a shift in the organs. She also has worsening sx in the past before my period. BUT she also has low back problems with left sided sciatica, so this could be OA or DJD mediated. She also continues on her pantoprazole qam and famotidine qhs. ROV 6 mos. 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 Review of Systems Const Denies fatigue, Denies fever(s), Denies night sweats, Denies poor appetite and Denies weight loss ENT Reports Normal hearing present, Denies dental pain, Denies dysphagia, Denies hearing loss, Denies mouth pain, Denies odynophagia, Denies throat swelling, Denies tongue swelling and Reports other (Dentition adequate) Card Reports no additional complaints Resp Reports no additional complaints GI Details: Reports abdominal pain, Denies melena, Denies bloating, Denies hematochezia, Denies constipation, Denies GI cramping, Denies dysphagia, Denies excessive flatus, Denies early satiety, Reports heartburn, Denies diarrhea, Denies nausea, Denies odynophagia, Denies vomiting and Denies hematemesis Musc Details: left groin Reports back pain Skin/Breast Denies pruritus, Denies lesions, Denies rash and Denies jaundice Neuro Reports Normal hearing present and Denies Abnormal speech present Endo Denies fatigue Aller/Immun Denies throat swelling and Denies tongue swelling Physical Exam Vital Signs: Last Vital Signs Pulse 73 06/21/23 14:03 BP 126/75 06/21/23 14:03 BMI result Body Mass Index 28.7 Const General: cooperative, no acute distress, well developed and well groomed Nutritional Appearance: well nourished and overweight Orientation/consciousness: oriented to person, oriented to place and oriented to time Limitations: No language barrier HEENT Head: Yes normocephalic and Yes atraumatic Eyes General: appearance normal, both eyes and all related structures Pupils: Equal, round and reactive pupils present Neck Neck: Yes normal visual inspection and Yes no lymphadenopathy Thyroid: Thyroid normal Resp Effort & Inspection: normal respiratory effort and able to speak in complete sentences Auscultation: clear to auscultation bilaterally Cardio Rate: regular rate Rhythm: regular rhythm Heart sounds: Normal, physiologic split S2 sound present Peripheral pulses: radial pulses present and posterior tibial pulses present GI Inspection: No distended and No Abdominal panniculus present Palpation (GI): Soft to palpation, Tenderness to palpation present (GI) (Left groin), no guarding, not rigid and No hepatosplenomegaly present Percussion: Yes normal to percussion Auscultation: normal bowel sounds Rectal Exam - Female: deferred Skin General skin exam: no rashes or lesions noted, turgor normal, skin not dry, no jaundice, No spider nevi and no striae Rashes: no rashes Nails: normal Neuro General: oriented to person, oriented to place and oriented to time Cranial nerves: Yes Equal, round and reactive pupils present and Yes Normal hearing present Speech: No Abnormal speech present Extrem General: Yes normal to inspection, No clubbing, No cyanosis and No edema Psych Appearance: grossly normal and well kempt Mental Status: mental status grossly normal Speech and movement: Normal speech and movement present Affect: normal affect Attitude: cooperative Thought process: Normal thought process present and not confabulating Thought content: Normal thought content present Insight: Limited insight present (Psych) Judgement: Limited judgement present (Psych) Assessment & Plan Assessment & Plan (1) GERD (gastroesophageal reflux disease): Code(s): K21.9 - Gastro-esophageal reflux disease without esophagitis (2) Left sided sciatica: Code(s): M54.32 - Sciatica, left side (3) LLQ abdominal pain: Code(s): R10.32 - Left lower quadrant pain Plan Patient has been lost to follow-up since 10/2022. She has been having more severe LLQ cramping, she feels that the bentyl helps a little bit. I want her to increase to 2 pills qhs and qam to see if this helps better. This has been a problem since her fallopian tube removal. She would like an US and I will order one, but this may be cramping because of a shift in the organs. She also has worsening sx in the past before my period. BUT she also has low back problems with left sided sciatica, so this could be OA or DJD mediated. She also continues on her pantoprazole qam and famotidine qhs. ROV 6 mos. Orders: Orders US pelvic complete Today R10.32 - Left lower quadrant pain Medications: Refilled famotidine 40 mg PO BEDTIME 90 tabs 2RF pantoprazole 40 mg PO DAILY 90 tabs 2RF K21.9 - Gastro-esophageal reflux disease without esophagitis, R10.13 - Epigastric pain Coding Level of Care Code Est Pt Level 3 (57029) Diagnoses GERD (gastroesophageal reflux disease) K21.9 Left sided sciatica M54.32 LLQ abdominal pain R10.32
== END 2023-06-21 14:35 | disposition home or self-care (01) ==
PROVIDERS: PCP Internal Medicine; Visit Provider Nurse Practitioner
DX: K21.9 Gastro-esophageal reflux disease without esophagitis (principal); M54.32 Sciatica, left side; R10.32 Left lower quadrant pain
CPT/HCPCS: 99213

== ENCOUNTER → 2023-06-21 13:58 | Outpatient (BNVA) | payer MEDICARE, SELFPAY | PROVIDERS: PCP Internal Medicine; Visit Provider Nurse Practitioner | DX: K21.9 Gastro-esophageal reflux disease without esophagitis (principal); M54.32 Sciatica, left side; R10.32 Left lower quadrant pain | CPT/HCPCS: 99212 ==

== ENCOUNTER 2023-07-11 14:06 | Outpatient (AMB) | payer MEDICARE, SELFPAY ==
[2023-07-11 14:12] VITALS: BP 124/60; PULSE 65; O2SAT 98; BMI 28.6
--- NOTE | 2023-07-11 14:12 | MHC.OFFVIS ---
Intake Vital Signs 07/11/23 14:12 Height 5 ft 3 in Weight 161 lb 6.054 oz BMI 28.6 BP 124/60 Blood Pressure Location Rt brachial Position Sitting Pulse 65 Pulse Source Pulse Oximeter Pulse Oximetry (%) 98 Oxygen Delivery Method Room Air Intake Visit Reasons: TESSA +ve/CM Intake Note: Patient last seen 06/06/23 presents today for follow up and test results. Reports L hand pinky injury at work. Seen at [facility] for sprain care. Extrusion Press Adjuster Required: No Accompanied by: Self / Same As Patient Allergies No Known Allergies Allergy (Verified 07/11/23 14:20) Medication List - Last Reconciled 07/11/23 by Lana Lizarraga MD albuterol sulfate 90 mcg/actuation (Ventolin HFA) 2 inhalations inhalation Q8H PRN baclofen 5 mg PO BEDTIME 30 days celecoxib 200 mg PO DAILY dicyclomine 10 mg PO QID famotidine 40 mg PO BEDTIME fluticasone propion-salmeterol 250-50 mcg/dose (Advair Diskus) 1 ea inhalation BID hydroxychloroquine 200 mg PO DAILY ibuprofen 800 mg PO BID PRN magnesium oxide 400 mg PO DAILY 90 days pantoprazole 40 mg PO DAILY tramadol 50 mg PO HPI HPI Comments History of Present Illness Details Patient returns for follow-up after completion of her diagnostic workup. She continues to feel about the same. She states that prednisone number her pain so she can sleep at night. 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 Patient stated that for the last 5-6 years she has been having diffuse pain in multiple joints including back, knees, ankles, hands, elbows. Over the last 3 weeks however she has noticed swelling of her elbows, ankles. The pain has been excruciating recently. She was prescribed Celebrex, baclofen and hydroxychloroquine by her PCP over the last 2 weeks. She also takes Motrin 400 mg daily in order to get through the day. She also notices hair loss. She does not see clumps of hair on the pillow. She denies any significant skin rashes. Denies any history of DVT/PE. No known history of autoimmune rheumatic disease. Patient had 2 pregnancies and no abortions or miscarriages. 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 Review of Systems Const Reports weakness Musc Reports back pain, Reports arthralgias, Reports joint swelling, Reports limited range of motion and Reports stiffness Neuro Reports weakness Psych Reports anxiety Physical Exam Vital Signs: Last Vital Signs Pulse 65 07/11/23 14:12 BP 124/60 07/11/23 14:12 Pulse Ox 98 07/11/23 14:12 Oxygen Delivery Method Room Air 07/11/23 14:12 BMI result Body Mass Index 28.6 Const General: cooperative and healthy appearing Nutritional Appearance: overweight Orientation/consciousness: patient oriented x3 Limitations: no limitations HEENT Head: Yes normocephalic and Yes atraumatic Mouth: moist mucous membranes Resp Effort & Inspection: normal respiratory effort and able to speak in complete sentences Cardio Rate: regular rate Rhythm: regular rhythm Skin General skin exam: no rashes or lesions noted Neuro General: patient oriented x3 Extrem Other: No wrist tenderness or pain with flexion and extension bilaterally Few tender MCPs and PIP is bilaterally Some tenderness in between MCPs and PIPs bilaterally Tender thumb MCPs bilaterally, nontender thumb IP joints bilaterally No DIP tenderness No swollen joints Tenderness at the common extensor origin bilaterally with positive resisted wrist extension test Diffuse fibromyalgia tender points Normal nailfold capillaroscopy Assessment & Plan Assessment & Plan (1) TESSA positive: Code(s): R76.8 - Other specified abnormal immunological findings in serum Plan: This is a 47-year-old female who presents for evaluation of positive TESSA in the setting of diffuse pain. Upon evaluation she has diffuse fibromyalgia tender points. She has few tender MCPs, PIP, nontender DIPs. Inflammatory markers are normal, with negative sub serologies. There is a low suspicion for an undifferentiated connective tissue disease. Today I had a long conversation with patient. Discussed management of fibromyalgia with patient. Is a noninflammatory, non-autoimmune central afferent processing disorder leading to a diffuse pain syndrome. I suggested that patient try to address her underlying psychiatric issues, anxiety/depression. I suggested evaluation by a therapist and/or a psychiatrist. Try to follow sleep hygiene practices. Consider a sleep study ordered by her PCP. Patient would benefit from increased physical activity, either through formal physical therapy or by joining a gym. Advised patient that she should start activity slowly and increase as tolerated. Patient used to do aerobics in the past and it was helpful. Advised patient to go back Can consider medications for fibromyalgia such as Cymbalta next visit. Can consider hydroxychloroquine in the future. (today we discussed benefits and risks such as retinopathy) Follow-up in 3 months Plan I spent 27 minutes reviewing patient's chart, evaluating patient, counseling patient and documenting in the chart Coding Level of Care Code Est Pt Level 4 (99653) Diagnoses TESSA positive R76.8
== END 2023-07-11 14:53 | disposition home or self-care (01) ==
PROVIDERS: PCP Internal Medicine; Visit Provider Student in an Organized Health Care Education/Training Program
DX: R76.8 Other specified abnormal immunological findings in serum (principal)
CPT/HCPCS: 99214

== ENCOUNTER → 2023-07-11 14:06 | Outpatient (BNVA) | payer MEDICARE, SELFPAY | PROVIDERS: PCP Internal Medicine; Visit Provider Student in an Organized Health Care Education/Training Program | DX: R76.8 Other specified abnormal immunological findings in serum (principal) | CPT/HCPCS: 99212 ==

== ENCOUNTER 2023-09-29 13:05 | Outpatient (REF) | payer OTHER, SELFPAY ==
--- NOTE | ~2023-09-29 | US_ITS ---
EXAMINATION: US EXTREMITY, NONVASCULAR CLINICAL INFORMATION: Mass on both feet, bilateral focal thickening near the lateral malleolus of both feet. COMPARISON: None available. TECHNIQUE: Targeted ultrasound images were obtained by the oyster preparer of the area of concern as indicated by the patient in the regions of the lateral malleolus in the bilateral feet. Radiologist was not in attendance. Images were later provided for interpretation. FINDINGS: No discrete mass or fluid collection identified in the areas of concern indicated by the patient adjacent to the right and left lateral malleoli. US/US extremity nonvascular IMPRESSION: No discrete mass or fluid collection identified in the areas of concern indicated by the patient adjacent to the right and left lateral malleoli. Decisions regarding further imaging, treatment or biopsy should be based on the clinical exam, as not all abnormalities are detectable on ultrasound studies.
== END 2023-09-29 13:06 | disposition home or self-care (01) ==
LOC: HO.US 13:05
PROVIDERS: PCP Internal Medicine; Visit Provider Internal Medicine
DX: R22.43 Localized swelling, mass and lump, lower limb, bilateral (principal)
CPT/HCPCS: 76882

== ENCOUNTER 2024-02-03 10:37 | Outpatient (REF) | payer OTHER, SELFPAY ==
[2024-02-03 11:32] LABS: Influenza A PCR NEGATIVE (Negative); Influenza B PCR NEGATIVE (Negative); Resp Syncy Virus RNA Qual PCR NEGATIVE (Negative); SARS COV2 PCR INHOUSE NEGATIVE (Negative)
== END 2024-02-03 10:38 | disposition home or self-care (01) ==
LOC: HO.LAB 10:37
PROVIDERS: PCP Internal Medicine; Visit Provider Internal Medicine
DX: U07.1 COVID-19 (principal)
CPT/HCPCS: 0241U

== ENCOUNTER 2024-10-11 13:10 | Outpatient (REF) | payer OTHER, SELFPAY ==
--- OUTSIDE RECORDS SUMMARY | 2024-10-11 07:45 | XMS_ITS ---
Author Organization Chadwick Jefferson MD Address [address] [place] [phone] Care Team Providers Care Sales Relationship Manager Name Role Phone Chadwick Jefferson Primary Care Provider Allergies No Known Allergies REASON FOR VISIT joint pain all over started 10-10-24, Video [phone] Medications Medication SIG (Take, Route, Frequency, Duration) Notes Start Date End Date Status Ibuprofen 800 MG 1 tablet with food o r milk as needed Orally twice a day for 30 days 12/23/2022 Active PARoxetine HCl 10 MG TAKE 1 TABLET BY [facility] EVERY DAY IN THE MORNING for [...] Celecoxib 200 MG TAKE 1 CAPSULE BY [facility] EVERY DAY WITH FOOD FOR 90 DAYS [...] Date Provider Diagnosis Chadwick Jefferson MD [address] [place] [phone] 10/11/2024 Chadwick Jefferson Arthralgia M25.50 Assessments Encounter Date Diagnosis (ICD Code) Assessment Notes Treatment Notes Treatment Clinical Notes Section Notes 10/11/2024 Arthralgia (ICD-10 - M25.50) PATIENT REQUESTS THAT ORDER BE [place] [facility] [place] Plan Of Treatment Treatment Notes Assessment Notes Arthralgia PATIENT REQUESTS PRIYANKA T ORDER BE [place]ED TO [facility] [place] Pending Test Test Name Order Date Complete Blood Count Auto Diff 5 Erythrocyte Sedimentation Rate 5 Comprehensive [place]. Panel Fast 5 TESSA Reflex Titer and Pattern 10/11/2024 Rheumatoid Factor 10/11/2024 Next Appt Details Follow Up: 2 Weeks, Reason: Provider Name:Chadwick palafox, 10/25/2024 01:45:00 PM, [address] [place] [address], [address], [place], [place], [phone], Progress Notes * Marivel LOPEZDOB: 1975 (49 yo F)Acc No.[id number]:10/11/2024 Patient: Danika SHORTDERONMarivel Provider: Brayan Jefferson MD :1975 A ge:49 Y S ex:Female Date:10/11/2024 Address:[address] [place], [place] [phone] Subjective: * Chief Complaints: * 1 . Joint pain all over started 10-10-24. 2. Video [phone]. * HPI: S ymptom(s): Telehealth L ocation of provider rendering services: [address], [address], L ocation of patient: a t address listed in demographics for today's visit, P atient identification confirmed using: SASHA Barger ame, T elehealth method: V ideo conference where patient is visible to the provider of care, C onsent: P atient verbally consented to treatment, Patient verbally consented to billing insurance company, Patient informed of any privacy concerns related to method of visit, T otal time spend talking with patient (minutes) 0 . patient is a 49 yo female here with complaint of all joints are hurting. has been seen by internal medicine nurse practitioner.. is short of breath. wants lab work. [...] D enies N ausea. * Medical History: H ysterectomy and salpingectomy. ovaries still there. * Medications: T aking ZyrTEC Allergy 10 MG Tablet 1 tablet Orally Once a day , Taking HM Vitamin D3 2000 UNIT Capsule 1 capsule Orally Once a day , Taking Advair Diskus 250-50 MCG/DOSE Aerosol Powder Breath Activated 1 puff Inhalation Twice a day , Taking Fluticasone Propionate 50 MCG/ACT Suspension 1 spray in each nostril Nasally Once a day , Taking SUMAtriptan Succinate 50 MG Tablet take 1 tablet at least 2 hours between doses as needed orally once a day at first sign of migraine 30 days Orally Twice a day as needed , Taking Celecoxib 200 MG Capsule TAKE 1 CAPSULE BY MOUTH EVERY DAY WITH FOOD FOR 90 DAYS , Taking Albuterol Sulfate 0.63 MG/3ML Nebulization Solution 3 ml as needed Inhalation every 8 hrs , Taking Ibuprofen 800 MG Tablet 1 tablet with food or milk as needed Orally twice a day , Taking PARoxetine HCl 10 MG Tablet TAKE 1 TABLET BY MOUTH EVERY DAY IN THE MORNING , Not-Taking/PRN predniSONE 10 MG Tablet 1 tablet with food or milk Orally 4 tabs for 3 days,3tabs for 3 days, 2 tabs for 3 days, and 1 tab for 3 days , Not-Taking/PRN Ondansetron HCl 4 MG Tablet 1 tablet Orally twice a day , Discontinued Doxycycline Hyclate 100 MG Capsule 1 capsule Orally Once a day , Medication List reviewed and reconciled with the patient * Allergies: N .K.D.A. Objective: * Vitals: H t: 62, Wt: 150, BMI:27.43, Wt-k.04. weight at home is 150 BP not taken and no temp. Assessment: * Assessment: 1. A rthralgia - M25.50 (Primary) Plan: * Treatment: ?LAB: Erythrocyte Sedimentation Rate* Kristin Hopkins Dejon 2024 11:57:34 AM EDT > COMING TODAY FOR LABS ?LAB: Comprehensive [place]. Panel Fast* Kristin Hopkins 2024 11:57:34 AM EDT > COMING TODAY FOR LABS ?LAB: TESSA Reflex Titer and Pattern* Sandeep Kristin A 2024 11:57:34 AM EDT > COMING TODAY FOR LABS ?LAB: Rheumatoid Factor* Kristin Hopkins 2024 11:57:34 AM EDT > COMING TODAY FOR LABS Notes: PATIENT REQUESTS THAT ORDER BE [place] [facility] [place] * Follow Up: 2 Weeks * * The named appointment provid er may or may not be the originator of this progress note, and it is not deemed complete until electronically signed by the appointment provider. Sign off status: Pending * Provider: Brayan Jefferson MD Date: 10/11/2024 Generated for Dave de la garza/Erendira/Destiniitting on: 10/11/2024 01:17 PM EDT History and Physical Notes * HPI (History of Present Illness) Category Sub-Category Detail Notes Category Not es Symptom(s) Telehealth Location of [facility] rendering services:: [address], [address] patient is a 49 yo female here with complaint of all joints are hurting. has been seen by internal medicine nurse practitioner.. is short of breath. wants lab work [...] time spend talking with patient (m inutes): 0
[2024-10-11 13:25] LABS: MANUAL DIFF FLAG NO
[2024-10-11 13:36] LABS: Hematocrit 36.5 % (37.0-47.0); Hemoglobin 12.6 g/dl (12.0-16.0); Imm Gran Abs Auto 0.02 X10*3/uL (0.00-0.03); Imm Gran Pct Auto 0.3 % (0.0-0.4); Lymphocytes Absolute Auto 1.4 X10*3/uL (1.2-4.9); Mean Corpuscular HGB Conc 34.5 g/dl (31.0-35.0); Mean Corpuscular Hemoglobin 29.5 pg (27.0-33.0); Mean Corpuscular Volume 85.5 fL (80.0-98.0); NRBC Abs Auto 0.000 X10*3/uL (0.0-0.012); NRBC Pct Auto 0.0 /100WBC (0.0-0.2); Platelet Count 356 X10*3/uL (160-400); Red Blood Count 4.27 X10*6/uL (4.20-5.50); White Blood Count 6.4 X10*3/uL (4.8-10.8)
[2024-10-11 14:11] LABS: Alanine Aminotransferase 14 U/L (0-31); Albumin Level 4.4 g/dL (3.5-5.0); Alkaline Phosphatase 98 U/L (39-117); Anion Gap 11 (12-20); Aspartate Amino Transferase 17 U/L (5-31); Blood Urea Nitrogen 8 mg/dL (9-16); Calcium 9.0 mg/dL (8.4-10.2); Carbon Dioxide 25 mmol/L (22-29); Chloride 107 mmol/L (96-108); Estimated Glomerular Filt Rate > 60; Potassium 3.9 mmol/L (3.3-5.1); Sodium 139 mmol/L (135-145); Total Protein 7.4 g/dL (6.5-8.0)
[2024-10-17 22:33] LABS: Anti Nuclear Antibody Pattern Nuclear, Nucleolar; Anti Nuclear Antibody Screen POSITIVE (NEGATIVE); Anti Nuclear Antibody Titer 1:160 titer
== END 2024-10-11 13:11 | disposition home or self-care (01) ==
LOC: HO.LAB 13:10
PROVIDERS: PCP Internal Medicine; Visit Provider Internal Medicine
DX: M25.50 Pain in unspecified joint (principal)
CPT/HCPCS: 36415; 80053; 85025; 85652; 86038; 86039; 86431

== ENCOUNTER 2024-11-01 16:00 | Outpatient (REF) | payer OTHER, SELFPAY ==
--- OUTSIDE RECORDS SUMMARY | 2024-11-01 11:15 | XMS_ITS ---
Author Organization Chadwick Jefferson MD Address [address] [place] [phone] Care Team Providers Care Can Inspector Name Role Phone Chadwick Jefferson Primary Care [...] Location Date Provider Diagnosis Chadwick Jefferson MD [address] [place] [address] [place] [phone] 11/01/2024 Chadwick Jefferson Hematuria R31.9 and Gastroenteritis [...] Reason: Provider Name:Chadwick palafox, 02/01/2025 03:00:00 PM, [address] [place] [address], [address], [place], [place], [phone], Progress Notes * Marisabel LOPEZ: 1975 (49 yo F)Acc No.[id number]:11/01/2024 Patient: Marivel COOK Provider: Brayan Jefferson MD :1975 A ge:49 Y S ex:Female Date:11/01/2024 Address:[address] [place], [place] [address] [facility] Subjective: * Chief Complaints: * 1 . [...] Pending * Provider: Brayan Jefferson MD Date: 11/01/2024 Generated for Dave de la garza/Erendira/Destiniitting on: 11/01/2024 04:02 PM EDT History and Physical Notes * [...]
--- OUTSIDE RECORDS SUMMARY | 2024-11-01 16:02 | XMS_ITS | Clinical Summary ---
Author Organization [facility] Address [address] [place] [id number] Phone Care Team Providers Care Health And Wellness Manager Name Role Phone Chadwick Jefferson MD Primary Care Provider Allergies No known active allergies Medications dicyclomine (BENTYL) 20 mg tablet Take 1 tablet (20 mg total) by mouth every 6 (six) hours. 25 tablet 5 Active ondansetron (ZOFRAN-ODT) 4 MG disintegrating tablet Take 1 tablet (4 mg total) by mouth every 8 (eight) hours as needed for nausea. 15 tablet 5 Active Encounters Date Type Department Care Team Description 10/29/2024 7:28 PM EDT - 10/29/2024 11:11 PM EDT Emergency [facility] [address] [place] [address] Discharge Disposition: Home or Self Care 10/29/2024 Procedure Pass [facility], Ct Scan - [facility] [address] [place] [address] from Last 3 Months Social History Tobacco Use Types Packs/Day Years Used Date Smoking Tobacco: Never Assessed Education Answer Date Recorded Are you interested in more education? Not on holden e 11/25/2023 Are you concerned about learning? Not on file 11/25/2023 No 11/25/2023 No 11/25/2023 Digital Access Answer Date Recorded No 11/25/2023 No 11/25/2023 Reliable internet access at home? Not on file 11/25/2023 Device with a working camera? Not on file Intimate Partner Violence Answer Date R ecorded Are you denied basic needs s uch as food, clothing, or medical care? No 10/29/2024 In the past 12 months have y ou been in a relationship with a person who hurts, threatens, or tries to control you? No 10/29/2024 Are you denied basic needs s uch as food, clothing, or medical care? No 10/29/2024 In the past 12 months have y ou been in a relationship with a person who hurts, threatens, or tries to control you? No 10/29/2024 Comments Unknown Sex and Gender Information Value Date Recorded Sex Assigned at Female 10/29/2024 3:48 PM EDT Legal Sex Female 8:42 AM EDT Gender Identity Female 10/29/2024 3:48 PM EDT Sexual Orientation Not on file Last Filed Vital Signs Vital Sign Reading Time Taken Comments Blood Pressure 150/87 10/29/2024 11:10 PM EDT Pulse 82 10/29/2024 11:10 PM EDT Temperature 36.1 C (97 F) 10/29/2024 5:46 PM EDT Respiratory Rate 16 10/29/2024 11:10 PM EDT Oxygen Saturation 99% 10/29/2024 11:10 PM EDT Inhaled Oxygen Concentration - - Weight 68 kg (150 lb) 10/29/2024 3:47 PM EDT Height 157.5 cm (5' 2 ) 10/29/2024 3:47 PM EDT Body Mass Index 27.44 10/29/2024 3:47 PM EDT Plan of Treatment Health Maintenance Due Date Last Done Comments Adult Td,Tdap Booster 1977 LIPID PANEL 1977 DEPRESSION SCREENING 1989 SMOKING Hx and SMOKELESS TOB ACCO SCREENING 1990 HEPATITIS C SCREENING 08/17/1995 HIV ONE-TIME SCREENING (18-6 5 YEARS) 08/17/1995 PAP SMEAR 1998 MAMMOGRAM 2017 COLOGUARD 2022 COLONOSCOPY 2022 COLORECTAL CANCER SCREENING 2022 FIT TEST 2022 FOBT 2022 SIGMOIDOSCOPY 2022 VIRTUAL COLONOSCOPY 2022 COVID-19 VACCINE (2023-2 5 season) 2023 SCREENING FOR DIABETES 10/30/2027 10/29/2024 HEPATITIS A VACCINES Aged Out No long er eligible based on patient's age to complete this topic HIB VACCINES Aged Out No longer eligi ble based on patient's age to complete this topic MENINGOCOCCAL VACCINES (ACWY) Aged Out No longer eligible based on patient's age to complete this topic MENINGOCOCCAL VACCINES (B) Aged Out N o longer eligible based on patient's age to complete this topic PNEUMOCOCCAL VACCINES (0-49 years) Aged Out No longer eligible based on patient's age to complete this topic Medical Devices Not on file Procedures Procedure Name Priority Date/Time Associated Diagnosis Comments CT ABDOMEN/PELVIS WITH CONTRAST Routine 10/29/2024 8:49 PM EDT URINALYSIS W/REFLEX URINE CULTURE STAT 10/29/2024 7:33 PM EDT LIPASE STAT 10/29/2024 3:56 PM EDT LFTS (HEPATIC PANEL) STAT 10/29/2024 3:56 PM EDT HCG, SERUM QUALITATIVE STAT 10/29/2024 3:56 PM EDT BASIC METABOLIC PANEL STAT 10/29/2024 3:56 PM EDT CBC AND DIFFERENTIAL STAT 10/29/2024 3:56 PM EDT from Last 3 Months Results * CT ABDOMEN/PELVIS WITH CONTRAST (10/29/2024 8:49 PM EDT) Anatomical Region Laterality Modality Abdomen, Pelvis Computed Tomogra phy 10/29/2024 10:1 4 PM EDT Impressions 10/29/2024 10:18 PM EDT No acute abnormality in the abdomen or pelvis. Narrative 10/29/2024 10:[address] ABDOMEN/PELVIS WITH CONTRAST Referring clinician's provided indication for this examination in Epic: * LLQ abdominal pain; * Nausea/vomiting TECHNIQUE: Multidetector-row CT of the abdomen and pelvis was performed after administration of intravenous contrast using tailored dose modulation techniques. Images were reconstructed in the axial, coronal, and sagittal planes. COMPARISON: None FINDINGS: Lower Chest: No consolidation or pleural effusions. Liver: Normal size and enhancement. Small left hepatic lobe cyst measuring about 8 mm. Biliary: Gallbladder and common bile ducts unremarkable. No surrounding inflammation or biliary obstruction. Spleen: Normal size and enhancement. Pancreas: Normal size and enhancement. No pancreatic lesion or surrounding inflammation. Adrenal Glands: Normal in size. Kidneys/Ureters: Kidneys enhance symmetrically. No hydronephrosis or obstructing calculus. No renal, ureteral or bladder calculus. Bowel: The bowel is not obstructed. There is no inflammatory changes of bowel. No pneumatosis or pneumoperitoneum. The appendix is unremarkable. Peritoneum/Retroperitoneum: No free fluid or free air. Lymph Nodes: No significant adenopathy. Pelvic Organs/Bladder: The bladder is normal in appearance. No adnexal lesion. Vessels: Aorta and IVC are normal in size. Bones/Soft Tissues: No acute osseous abnormality. Procedure Note Penelope Vang MD, PhD - 10/29/2024 CT ABDOMEN/PELVIS WITH CONTRAST Referring clinician's provided indication for this examination in Epic: *LLQ abdominal pain; * Nausea/vomiting TECHNIQUE: Multidetector-row CT of the abdomen and pelvis was performedafter administration of intravenous contrast using tailored dosemodulation techniques. Images were reconstructed in the axial, coronal,and sagittal planes. COMPARISON: None FINDINGS: Lower Chest: No consolidation or pleural effusions. Liver: Normal size and enhancement. Small left hepatic lobe cyst measuringabout 8 mm. Biliary: Gallbladder and common bile ducts unremarkable. No surroundinginflammation or biliary obstruction. Spleen: Normal size and enhancement. Pancreas: Normal size and enhancement. No pancreatic lesion or surroundinginflammation. Adrenal Glands: Normal in size. Kidneys/Ureters: Kidneys enhance symmetrically. No hydronephrosis orobstructing calculus. No renal, ureteral or bladder calculus. Bowel: The bowel is not obstructed. There is no inflammatory changes ofbowel. No pneumatosis or pneumoperitoneum. The appendix is unremarkable. Peritoneum/Retroperitoneum: No free fluid or free air. Lymph Nodes: No significant adenopathy. Pelvic Organs/Bladder: The bladder is normal in appearance. No adnexallesion. Vessels: Aorta and IVC are normal in size. Bones/Soft Tissues: No acute osseous abnormality. IMPRESSION: No acute abnormality in the abdomen or pelvis. Kylie Sage PA-C IMG CT ABD/PELVIS Final Res ult * (ABNORMAL) Urinalysis w/reflex Urine Culture (10/29/2024 7:33 PM EDT) COLOR Yellow Yellow [facility] CLARITY Clear [facility] GLUCOSE Negative Negative [facility] BILI Negative Negative [facility] KETONES 1+(A) Negative [facility] SPECIFIC GRAVITY 1.025 1.005 - 1.030 [facility] BLOOD Trace(A) Negative [facility] PH 6.0 5.0 - 8.0 [facility] Protein-UA Negative Negative [facility] NITRITE Negative Negative [facility] Leukocyte esterase, ur Negative Negative [facility] Urine (Urine) 10/29/2024 7:3 3 PM EDT 10/29/2024 8:17 PM EDT Kylie Sage PA-C URINE ORDERABLES Final Resu lt Performing Organization Address [facility]/ZIP Co de Phone Number [address] [address] * HCG, serum qualitative (10/29/2024 3:56 PM EDT) HCG, QUALITATIVE Negative Negative IU/L [facility] Blood 10/29/2024 3:56 PM EDT 10/29/2024 4:14 PM EDT Martin Hernandez MD LAB BLOOD ORDERABLES Fin al Result Performing Organization Address [facility]/ZIP Co de Phone Number [address] [address] * (ABNORMAL) LFTs (hepatic panel) (10/29/2024 3:56 PM EDT) ALKALINE PHOSPHATASE 141(H) 39 - 117 U/L [facility] TOTAL BILIRUBIN <0.2 0.0 - 1.2 mg/dL [facility] DIRECT BILIRUBIN <0.1 0.0 - 0.2 mg/dL [facility] Bilirubin (Indirect) NOT CALCULATED 0 - 1.5 mg/dL [facility] AST 17 0 - 37 U/L [facility] ALT 15 0 - 40 U/L [facility] TOTAL PROTEIN 7.8 6.5 - 8.0 g/dL [facility] ALBUMIN 4.4 3.9 - 4.8 g/dL [facility] GLOBULIN 3.4 1 - 4.8 g/dL [facility] A/G Ratio 1.29 1.00 - 4.80 RATIO [facility] Blood 10/29/2024 3:56 PM EDT 10/29/2024 4:14 PM EDT us Martin Hernandez MD LAB BLOOD ORDERABLES Fin al Result [facility] [address] [place], [place] [id number] * (ABNORMAL) CBC and differential (10/29/2024 3:56 PM EDT) WBC 13.56(H) 4.00 - 11.00 K/uL [facility] RBC 4.43 4.00 - 5.20 M/uL [facility] HGB 13.0 12.0 - 16.0 g/dL [facility] HCT 39.0 36.0 - 46.0 % [facility] PLT 343 150 - 450 K/uL [facility] MCV 88.0 80.0 - 100.0 fL [facility] MCH 29.3 27.0 - 31.0 pg [facility] MCHC 33.3 32.0 - 36.0 g/dL [facility] RDW 12.8 11.5 - 14.5 % [facility] MPV 10.1 8.4 - 12.0 fL [facility] NRBC 0.00 0.00 /100 WBCs [facility] ABSOLUTE NRBC 0.00 0.00 K/uL [facility] DIFF METHOD Auto [facility] NEUTS 51.5 48.0 - 76.0 % [facility] LYMPHS 15.5(L) 18.0 - 41.0 % [facility] MONOS 6.2 4.0 - 11.0 % [facility] EOS 26.1(H) 0.0 - 5.0 % [facility] BASOS 0.4 0.0 - 1.5 % [facility] Granulocytes, immature (%) 0.3 0.0 - 0.9 % [facility] ABSOLUTE NEUTS 6.99 1.92 - 7.60 K/uL [facility] ABSOLUTE LYMPHS 2.10 0.72 - 4.10 K/uL [facility] ABSOLUTE MONOS 0.84 0.16 - 1.10 K/uL [facility] ABSOLUTE EOS 3.54(H) 0.00 - 0.50 K/uL [facility] ABSOLUTE BASOS 0.05 0.00 - 0.15 K/uL [facility] Granulocytes, immature 0.04 0.00 - 0.09 K/uL [facility] Blood 10/29/2024 3:56 PM EDT 10/29/2024 4:14 PM EDT Martin Hernandez MD LAB BLOOD ORDERABLES Fin al Result Performing Organization Address [facility] Co de Phone Number [address] [address] * (ABNORMAL) Lipase (10/29/2024 3:56 PM EDT) LIPASE 11(L) 16 - 63 U/L [facility] Blood 10/29/2024 3:56 PM EDT 10/29/2024 4:14 PM EDT Martin Hernandez MD LAB BLOOD ORDERABLES Fin al Result Performing Organization Address [facility]/ZIP Co de Phone Number [address] [address] * Basic metabolic panel (10/29/2024 3:56 PM EDT) SODIUM 140 133 - 146 mmol/L [facility] CHLORIDE 104 96 - 108 mmol/L [facility] POTASSIUM 3.7 3.3 - 5.1 mmol/L [facility] CO2 22 21 - 35 mmol/L [facility] BUN 8 6 - 19 mg/dL [facility] CREATININE 0.70 0.5 - 1.5 mg/dL [facility] GLUCOSE 82 70 - 99 mg/dL [facility] CALCIUM 9.6 8.4 - 10.3 mg/dL [facility] EGFR 107 >59 mL/min/1.7 3m2 [facility] Comment:Estimated glomerular filtration rate calculated using the CKD-EPI refit equation. ANION GAP 18 10 - 20 mmol/L [facility] Blood 10/29/2024 3:56 PM EDT 10/29/2024 4:14 PM EDT Martin Hernandez MD LAB BLOOD ORDERABLES Fin al Result [facility] [address] [place] [address] from Last 3 Months Insurance MEDICARE REPLACEMENT [employer] ONE [employer]ARE MEDICARE REPLACEMENT ONE CARE MEDICARE REPLACEMENT ONE CARE MEDICARE REPLACEMENT MEDICARE REPLACEMENT Care Teams Health And Wellness Manager Relationship Specialty Start Date End Date Chadwick Jefferson MD [address] [place] [address] [place] [address] PCP - General Internal Medicine 11/25/23 Additional Source Comments The information contained in this document represents components of the legal health record. It is not the complete legal health record.[facility]
[2024-11-01 17:12] LABS: Appearance Urine Clear; Glucose Urine UA Negative (Negative); PH 6.0 (5.0-9.0); Specific Gravity - Urine 1.025 (1.005-1.025); UMIC TRIGGER UA YES
== END 2024-11-01 16:01 | disposition home or self-care (01) ==
LOC: HO.LAB 16:00
PROVIDERS: PCP Internal Medicine; Visit Provider Internal Medicine
DX: R31.9 Hematuria, unspecified (principal)
CPT/HCPCS: 81001

== ENCOUNTER 2025-01-17 15:29 | Outpatient (AMB) | payer OTHER, SELFPAY ==
--- NOTE | 2025-01-17 15:31 | MHC.OFFVIS ---
Vital Signs 01/17/25 15:38 Height 5 ft 3 in Weight 160 lb 14.999 oz BMI 28.5 BP 134/80 Blood Pressure Location Lt brachial Position Sitting Pulse 62 Pulse Oximetry (%) 98 Oxygen Delivery Method Room Air Intake Visit Reasons: ABNORMAL LAB RESULT Intake Note: Patient presents for abnormal lab results follow up. Allergies No Known Allergies Allergy (Verified 01/17/25 15:37) Medication List - Last Reconciled 01/17/25 by Beth Bentley MD albuterol sulfate 90 mcg/actuation (Ventolin HFA) 2 inhalations inhalation Q8H PRN fluticasone propion-salmeterol 250-50 mcg/dose (Advair Diskus) 1 ea inhalation BID ibuprofen 800 mg PO BID PRN magnesium oxide 400 mg PO DAILY 90 days HPI Comments Details: Patient is a 49-year-old female with GERD, asthma, degenerative disease of the spine Interval History: Patient last seen 07/11/[address] Lizarraga - Follow up after completion of diagnostic work up - Low suspicion for CTD - Diagnosed with fibromyalgia Today - Not on any DMARDs - Returns to rheumatology because her primary repeated her TESSA and it came back positive - Complains of low back that radiates down her legs - Has difficult - Intermittent swelling to her hands and elbows, no specific time of day - AM stiffness 15-20 mins - Mom with OA - Hands clamp up in a cold room - No Raynaud's - No nasal/oral ulcers Rheumatologic History: Initial history: This is a 47-year-old female this is a 47-year-old female who presents for 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 Patient stated that for the last 5-6 years she has been having diffuse pain in multiple joints including back, knees, ankles, hands, elbows. Over the last 3 weeks however she has noticed swelling of her elbows, ankles. The pain has been excruciating recently. She was prescribed Celebrex, baclofen and hydroxychloroquine by her PCP over the last 2 weeks. She also takes Motrin 400 mg daily in order to get through the day. She also notices hair loss. She does not see clumps of hair on the pillow. She denies any significant skin rashes. Denies any history of DVT/PE. No known history of autoimmune rheumatic disease. Patient had 2 pregnancies and no abortions or miscarriages. Current Rheumatology Medication(s): PFSH Surgical History Status post surgical removal of both fallopian tubes History of esophagogastroduodenoscopy (EGD) Family History Family/Other Breast cancer Social History Alcohol intake: never Patient Tobacco Use Status: Never used Tobacco Current occupational status: employed Current occupation: spanish teacher for [employer] Review of Systems Const Details: Review of Systems Constitutional: Denies fever, chills, weight loss ENT: Denies vision changes, eye pain or eye redness, dental caries, dry mouth GI: Denies nausea, vomiting, diarrhea, abdominal pain, change in BM Pulm: Denies SOB, KEBEDE, hemoptysis, wheezing Cards: Denies chest pain, palpitations Skin: Denies Raynaud's, rash, nail changes, photosensitivity, POLLS OR SURVEYS INTERVIEWER: Denies headaches, weakness, paresthesias, recurrent falls MSK: as per HPI All other systems reviewed and are unremarkable except noted above Physical Exam Exam Exam: Vital signs reviewed Physical Examination CONSTITUITIONAL Patient alert and cooperative. Well appearing and in no apparent painful distress MSK Hands Right Hand: Able to make a fist. No swelling or tenderness to palpation of the MCPs, PIPs or DIPs. No deformities noted. Left Hand: Able to make a fist. No swelling or tenderness to palpation of the MCPs, PIPs or DIPs. No deformities noted. Wrists Right Wrist: Full ROM to flexion and extension. No swelling or TTP Left Wrist: Full ROM to flexion and extension. No swelling or TTP Elbows Right Elbow: Full ROM. No swelling or TTP. No TTP of the medial epicondyle. TTP of the lateral epicondyle Left Elbow: Full ROM. No swelling or TTP. No TTP of the medial epicondyle. TTP of the lateral epicondyle Shoulders Right shoulder: Full ROM. No swelling noted. No TTP of the AC joint. No TTP of the subacromial bursa. No TTP of the posterior shoulder Left shoulder: Full ROM. No swelling noted. No TTP of the AC joint. No TTP of the subacromial bursa. No TTP of the posterior shoulder Hip bursa: Tenderness to palpation bilaterally Knees Right knee: Full ROM. No swelling noted. No TTP of the knee joint line. TTP of pes anserine bursa Left knee: Full ROM. No swelling noted. No TTP of the knee joint line. TTP of pes anserine bursa Ankles Right ankle: Good ankle dorsiflexion and plantar flexion. Swelling noted over the lateral malleolus. No TTP of the ankle joint Left ankle: Good ankle dorsiflexion and plantar flexion. Swelling noted over the lateral malleolus. No TTP of the ankle joint Feet Right foot: Negative squeeze test Left foot: Negative squeeze test. TTP of the plantar surface Tender points? Tenderness to palpation of the bilateral trapezius, supraspinatus, anterior costochondral junctions, bilateral suboccipital muscle insertions SKIN No rashes Vital Signs: Last Vital Signs Pulse 62 01/17/25 15:38 BP 134/80 01/17/25 15:38 Pulse Ox 98 01/17/25 15:38 Oxygen Delivery Method Room Air 01/17/25 15:38 BMI result Body Mass Index 28.5 Results Reviewed Results Reviewed: Laboratory Tests 06/06/23 10/11/24 16:00 13:24 WBC 6.4 RBC 4.27 Hgb 12.6 Hct 36.5 L Plt Count 356 ESR 16 25 H Sodium 139 Potassium 3.9 Chloride 107 Carbon Dioxide 25 BUN 8 L Creatinine 0.59 AST 17 ALT 14 C-Reactive Protein < 0.10 Laboratory Tests 06/06/23 10/11/24 16:00 13:24 Rheumatoid Factor < 13.0 Cycl Citrul Peptide IgG <16 TESSA Screen POSITIVE A TESSA Titer 1:160 H SS-A/Ro Antibody <1.0 NEG SS-B/La Antibody <1.0 NEG Sm (Broderick) Antibody <1.0 NEG U1 snRNA A Antibody <11 U1 snRNA C Antibody <11 U1 snRNA 70kD Antibody <11 SM/CARDIOVASCULAR TECHNICIAN IgG Antibody <1.0 NEG Scl-70 Scleroderma Ab <11 A-PM Scleroderma 75 Ab <11 A-PM Scleroderma 100 Ab <11 Double Strand DNA Ab <1 Anti-ds DNA (Crithidia) Negative Th/To CARDIOVASCULAR TECHNICIAN Ab <11 U3-CARDIOVASCULAR TECHNICIAN (Fibrillarin) Ab <11 RNA Polymerase III RP11 Ab <11 RNA Polymerase III RP155 Ab <11 Centromere B Antibody <11 Centromere Protein A Ab <11 Complement C3 137 Complement C4 28 Assessment & Plan Assessment & Plan (1) Fibromyalgia: Code(s): M79.7 - Fibromyalgia Category: Medical Plan: #Fibromyalgia Patient is a 49-year-old female with polyarticular joint complaints here today for evaluation after repeat testing of TESSA came back positive. Again no evidence of autoimmune connective tissue disease at that time. No evidence of synovitis. She does have evidence of tender points and tendonitis/bursitis points. Which are all related to her fibromyalgia. We will do a trial of gabapentin to see if this helps with her overall pain Recommending compression stockings Plan - XRs: Neck, L-spine, hands, wrists, shoulders, ankles, feet, Hips - Gabapentin 100mg nightly - RTC 4 months (2) TESSA positive: Code(s): R76.8 - Other specified abnormal immunological findings in serum Category: Medical Plan: #Positive TESSA The presence of antinuclear antibodies (TESSA) is mainly associated with connective tissue diseases (CTD). ?However, their presence is found in healthy people especially in women and patients >65. ?In healthy individuals, the frequency of TESSA has been shown to be 31.7% of individuals at 1:40 serum dilution, 13.3% at 1:80, 5.0% at 1:160, and 3.3% at 1:320 (2). Some drugs and xenobiotics are also important for the development of TESSA (hydralazine, hydrochlorothiazide, minocycline, terbinafine, ciprofloxacin, furosemide, omeprazole). Moreover, the deficiency of vitamin D in the body of patients correlates with occurrence of these antibodies (1). At this time there is low suspicion for a connective tissue disease. ? 1. Luis?hardik Chávez, Alea Barger, Flora Whitehead. Antinuclear antibodies in healthy people and non-rheumatic diseases - diagnostic and clinical implications. Reumatologia. 2018;56(4):243-248. doi: 10.5114/reum.2018.30690. Epub 2017Dec 09. PMID: 61659361; PMCID: [id number]. 2. Thanh EM, Natacha TE, Kassandra JS, Leonardo B, Meera R, Yony MJ, Mikey T, Katty JA, Ayana JR, Marti RG, Hilario RN, Coco JS, Verenice NF, Smguillermok RJ, Takasaki Y, Widena A, Dick MR, Cheri JA. Range of antinuclear antibodies in healthy individuals. Arthritis Rheum. 1997 Dec;40(9):1601-11. doi: 10.1002/art.[id number]. PMID: 7207063. Plan I spent 30 minutes reviewing the record and labs, taking a history, examining the patient, discussing the treatment plan, ordering diagnostic work up and documenting in the medical record Orders: Orders XR knee RT 3V Today M15.9 - Polyosteoarthritis, unspecified XR elbow LT min 3V Today M15.9 - Polyosteoarthritis, unspecified XR foot LT min 3V Today M15.9 - Polyosteoarthritis, unspecified XR ankle RT min 3V Today M15.9 - Polyosteoarthritis, unspecified XR ankle LT min 3V Today M15.9 - Polyosteoarthritis, unspecified XR wrist RT min 3V Today M15.9 - Polyosteoarthritis, unspecified XR wrist RT 2V Today M15.9 - Polyosteoarthritis, unspecified XR cervical spine 4V Today M15.9 - Polyosteoarthritis, unspecified XR lumbar spine 4V min Today M15.9 - Polyosteoarthritis, unspecified XR sacroiliac joint min 3V Today M15.9 - Polyosteoarthritis, unspecified XR knee LT 3V Today M15.9 - Polyosteoarthritis, unspecified XR elbow RT min 3V Today M15.9 - Polyosteoarthritis, unspecified XR foot RT min 3V Today M15.9 - Polyosteoarthritis, unspecified XR hand LT min 3V Today M15.9 - Polyosteoarthritis, unspecified XR hand RT min 3V Today M15.9 - Polyosteoarthritis, unspecified Medications: New gabapentin 100 mg PO BEDTIME 90 caps 1RF M79.7 - Fibromyalgia Coding Level of Care Code Est Pt Level 4 (30594) Complex EM visit Add On G2211 Diagnoses Fibromyalgia M79.7 TESSA positive R76.8
[2025-01-17 15:38] VITALS: BP 134/80; PULSE 62; O2SAT 98; BMI 28.5
== END 2025-01-17 16:56 | disposition home or self-care (01) ==
LOC: HO.RHES 15:29
PROVIDERS: PCP Internal Medicine; Visit Provider Student in an Organized Health Care Education/Training Program
DX: M79.7 Fibromyalgia (principal); R76.0 Raised antibody titer
CPT/HCPCS: 99214

== ENCOUNTER 2025-01-21 08:48 | Outpatient (REF) | payer OTHER, SELFPAY ==
--- OUTSIDE RECORDS SUMMARY | 2024-10-11 07:45 | XMS_ITS ---
Author Organization Chadwick Jefferson MD Address [address] [place] [phone] Care Team Providers Care Pocket Setter Name Role Phone Chadwick Jefferson Primary Care Provider Allergies No Known Allergies REASON FOR VISIT joint pain all over started 10-10-24, Video [phone] Medications Medication SIG (Take, Route, Frequency, Duration) Notes Start Date End Date Status Ibuprofen 800 MG 1 tablet with food o r milk as needed Orally twice a day for 30 days 12/23/2022 Active PARoxetine HCl 10 MG TAKE 1 TABLET BY [facility] EVERY DAY IN THE MORNING [...] Celecoxib 200 MG TAKE 1 CAPSULE BY [facility] EVERY DAY WITH FOOD FOR 90 [...] Location Date Provider Diagnosis Chadwick Jefferson MD [address] [place] [address] Drive [address] [place] [phone] 10/11/2024 Chadwick Jefferson Arthralgia M25.50 Assessments Encounter Date Diagnosis (ICD Code) Assessment Notes Treatment Notes Treatment Clinical Notes Section Notes 10/11/2024 Arthralgia (ICD-10 - M25.50) PATIENT REQUESTS THAT ORDER BE FAXED TO [facility] [place] [facility] Plan Of Treatment Treatment Notes Assessment Notes Arthralgia PATIENT REQUESTS PRIYANKA T ORDER BE FAXED TO [facility] [place] [facility] Pending Test Test Name Order Date Complete Blood Count Auto Diff 5 Erythrocyte Sedimentation Rate 5 Comprehensive [place]. Panel Fast 5 TESSA Reflex Titer and Pattern 10/11/2024 Rheumatoid Factor 10/11/2024 Next Appt Details Follow Up: 2 Weeks, Reason: Provider Name:Chadwick Gay ier, 02/01/2025 03:00:00 PM, [address] [place] [address], Suite [facility], [place], [place], [phone], Progress Notes * Marivel LOPEZDOB: 1975 (49 yo F)Acc No.[id number]:10/11/2024 Patient: Danika SHORTDERONMarivel Provider: Brayan Jefferson MD :1975 A ge:49 Y S ex:Female Date:10/11/2024 Address:[address] [place], [place] [address] Subjective: * Chief Complaints: * J oint pain all over started 7Video [phone] * HPI: S ymptom(s): Telehealth L ocation of provider rendering services: [address], [address], L ocation of [...] joints are hurting. has been seen by mold loft worker.. is short of breath. wants lab work. [...] > COMING TODAY FOR LABS ?LAB: Comprehensive [place]. Panel Fast* Kristin Hopkins 2024 11:57:34 AM EDT > COMING TODAY FOR LABS ?LAB: TESSA Reflex Titer and Pattern* Kristin Hopkins 2024 11:57:34 AM EDT > COMING TODAY FOR LABS ?LAB: Rheumatoid Factor* Kristin Hopkins 2024 11:57:34 AM EDT > COMING TODAY FOR LABS Notes: PATIENT REQUESTS THAT ORDER BE FAXED TO [facility] [facility]IENT REG?? * Procedure Codes: * Follow Up: 2 Weeks * * Sign off status: Completed true * Provider: Brayan Jefferson MD Date: 0 10/11/2024 Generated for Dalyi holli/Erendira/eTransmitting on: 1 08:51 AM EDT History and Physical Notes * HPI (History of Present Illness) Category Sub-Category Detail Notes Category Not es Symptom(s) Telehealth Location of [facility] rendering services:: [address], [address] patient is a 49 yo female here with complaint of all joints are hurting. has been seen by mold loft worker.. is short of breath. wants lab work [...]
--- OUTSIDE RECORDS SUMMARY | 2024-10-30 05:06 | XMS_ITS ---
Author Organization Chadwick Jefferson MD Address [address] [facility] [address] [place] [phone] Care Team Providers Care Pediatric Rn Name Role Phone Chadwick Jefferson Primary Care Provider REASON FOR VISIT ER visit rec'd Encounters Encounter Location Date Provider Diagnosis Chadwick Jefferson MD [address] [place] [address] [address] [place] [phone] 10/30/2024 Chadwick Jefferson Plan Of Treatment Next Appt Details Provider Name:Chadwick Gay ier, 02/01/2025 03:00:00 PM, 10 [facility], [address], [place], [place], [phone], Progress Notes * Marivel BIGGSDOB: 1975 (49 yo F)Acc No.[id number]:10/30/2024 Patient: Marivel COOK :1975 A ge:49 Y S ex:Female Address:[address] [place] [address], [address] * true * Date: Generated for Dalyi holli/Erendira/eTransmitting on: 08:52 AM EDT
--- OUTSIDE RECORDS SUMMARY | 2024-11-01 11:15 | XMS_ITS ---
Author Organization Chadwick Jefferson MD Address [address] [place] [phone] Care Team Providers Care Tattoo Identifier Name Role Phone Chadwick Jefferson Primary Care Provider [phone] Allergies No Known Allergies REASON FOR [...] HCl 10 MG TAKE 1 TABLET BY [facility] EVERY DAY IN THE MORNING [...] Celecoxib 200 MG TAKE 1 CAPSULE BY [facility] EVERY DAY WITH FOOD FOR [...] Location Date Provider Diagnosis Chadwick Jefferson MD [address] [place] [address] [place] [phone] 11/01/2024 Chadwick Jefferson Hematuria R31.9 and Gastroenteritis [...] Up: 3 Months, Reason: Provider Name:Chadwick palafox, 02/01/2025 03:00:00 PM, [address] [place] [address], [address], [place], [place], [phone], Progress Notes * Marisabel LOPEZ: 1975 (49 yo F)Acc No.[id number]:11/01/2024 Patient: Marivel COOK Provider: Brayan Jefferson MD :1975 A ge:49 Y S ex:Female Date:11/01/2024 Address:[address] [place], [place] [address] [id number] Subjective: * Chief Complaints: * 1 . [...] 0 11/01/2024 Generated for Dave de la garza/Erendira/Destiniitting on: 08:51 AM EDT History and Physical Notes [...]
--- NOTE | ~2025-01-21 | XR_ITS ---
CLINICAL HISTORY: M15.9 - Polyosteoarthritis, unspecified Four views of each wrist Comparison: None provided Findings: No fracture or malalignment. Mild bilateral 1st carpometacarpal joint osteoarthritis. Mild right 2nd metacarpophalangeal joint osteoarthritis. IMPRESSION: No acute findings. This document has been electronically signed by: Hollis Stinson DO on 01/21/2025 11:38:31
--- NOTE | ~2025-01-21 | XR_ITS ---
CLINICAL HISTORY: M15.9 - Polyosteoarthritis, unspecified Three views of each foot Comparison: None provided Findings: No fracture or malalignment. Mild bilateral 1st metatarsophalangeal joint osteoarthritis. Small bilateral posterior calcaneal enthesophytes. No tibiotalar joint effusion. IMPRESSION: 1. No acute findings. This document has been electronically signed by: Hollis Stinson DO on 01/21/2025 12:31:25
--- NOTE | ~2025-01-21 | XR_ITS ---
CLINICAL HISTORY: M15.9 - Polyosteoarthritis, unspecified Three views of each elbow Comparison: None provided Findings: Right elbow: No fracture or dislocation. Minimal ulnohumeral osteoarthritis. Small enthesophyte at the common extensor tendon origin. No elbow joint effusion. Left elbow: No fracture or dislocation. Minimal ulnohumeral osteoarthritis. No elbow joint effusion. IMPRESSION: No acute findings. This document has been electronically signed by: Hollis Stinson DO on 01/21/2025 11:17:18
--- NOTE | ~2025-01-21 | XR_ITS ---
CLINICAL HISTORY: M15.9 - Polyosteoarthritis, unspecified 3 views lumbar spine Comparison: MR/SR - MR LUMBAR SPINE WITHOUT IV CONTRAST - 09/20/22 08:41 EDT Findings: The usual lumbar lordosis is maintained without spondylolisthesis. Vertebral body heights are maintained. Mild lower thoracic discogenic degenerative disease. Minimal lumbar discogenic degenerative disease. Multilevel lumbar facet osteoarthritis. IMPRESSION: No acute findings. Minimal lumbar discogenic degenerative disease. Multilevel lumbar facet osteoarthritis. This document has been electronically signed by: Hollis Stinson DO on 01/21/2025 10:58:45
--- NOTE | ~2025-01-21 | XR_ITS ---
CLINICAL HISTORY: M15.9 - Polyosteoarthritis, unspecified 3 view right ankle Comparison: None provided Findings: No acute fractures or dislocations. No significant loss of joint space, osteophytes, or erosions. No ankle effusion. No radiopaque foreign body. IMPRESSION: 1. No acute findings. This document has been electronically signed by: Dary Macias MD on 01/21/2025 16:38:42
--- NOTE | ~2025-01-21 | XR_ITS ---
CLINICAL HISTORY: M15.9 - Polyosteoarthritis, unspecified AP bilateral knees standing and three views of each knee Comparison: None Findings: Right knee: No fracture or malalignment. Minimal medial compartment osteoarthritis. No knee joint effusion. Left knee: No fracture or malalignment. Minimal medial compartment osteoarthritis. Small superior patellar enthesophyte. No knee joint effusion. IMPRESSION: No acute findings. This document has been electronically signed by: Hollis Stinson DO on 01/21/2025 11:09:02
--- NOTE | ~2025-01-21 | XR_ITS ---
CLINICAL HISTORY: M15.9 - Polyosteoarthritis, unspecified Five views cervical spine Comparison: None provided Findings: The usual cervical lordosis is reversed with a mild kyphosis centered at C4-C5. No spondylolisthesis or facet dislocation. Vertebral body heights are maintained. Mild cervical discogenic degenerative disease which is most conspicuous at C5-C6. Mild multilevel facet and uncovertebral osteoarthritis. No definite neural foraminal narrowing. Small focus of nuchal ligament heterotopic ossification at the level of C6. Prevertebral soft tissues are not abnormally thickened. IMPRESSION: No acute findings. Mild degenerative changes. This document has been electronically signed by: Hollis Stinson DO on 01/21/2025 10:53:05
--- NOTE | ~2025-01-21 | XR_ITS ---
CLINICAL HISTORY: M15.9 - Polyosteoarthritis, unspecified 3 views sacroiliac joints Comparison: None provided Findings No acute fractures. No significant degenerative change. No erosions. IMPRESSION: No acute findings. This document has been electronically signed by: Hollis Stinson DO on 01/21/2025 11:47:14
--- NOTE | ~2025-01-21 | XR_ITS ---
CLINICAL HISTORY: M15.9 - Polyosteoarthritis, unspecified 3 view bilateral hands Comparison: None provided Findings: No fracture or dislocation. Mild bilateral 1st carpometacarpal and 2nd metacarpophalangeal joint osteoarthritis. IMPRESSION: No acute findings. This document has been electronically signed by: Hollis Stinson DO on 01/21/2025 11:41:27
--- OUTSIDE RECORDS SUMMARY | 2025-01-21 08:51 | XMS_ITS | Clinical Summary ---
Author Organization [facility] Address [address] [place] [address] Phone Care Team Providers Care System Development Manager Name Role Phone Chadwick Jefferson MD [...] 11:11 PM EDT Emergency [facility] Emergency [address] [place] [address] Discharge Disposition: Home or Self Care 10/29/2024 Procedure Pass [facility] [place], Ct Scan - [facility] [address] [place] [address] from Last 3 Months Social History Tobacco [...] FOBT 2022 SIGMOIDOSCOPY 2022 VIRTUAL COLONOSCOPY 2022 INFLUENZA VACCINE (#1) 2024 COVID-19 VACCINE ( - 2024-2 6 season) 2024 SCREENING FOR DIABETES 10/30/2027 10/29/2024 HEPATITIS A [...] (10/29/2024 7:33 PM EDT) COLOR Yellow Yellow [facility] CLARITY Clear [facility] GLUCOSE Negative Negative [facility] BILI Negative Negative [facility] KETONES 1+(A) Negative [facility] SPECIFIC GRAVITY 1.025 1.005 - 1.030 [facility] BLOOD Trace(A) Negative [facility] PH 6.0 5.0 - 8.0 [facility] Protein-UA Negative Negative [facility] NITRITE Negative Negative [facility] Leukocyte esterase, ur Negative Negative [facility] Urine (Urine) 10/29/2024 7:3 3 PM EDT 10/29/2024 8:17 PM EDT Kylie Sage PA-C URINE ORDERABLES Final Resu lt Performing Organization Address [facility]/ZIP Co de Phone Number [address] [address] * HCG, serum qualitative (10/29/2024 3:56 PM EDT) HCG, QUALITATIVE Negative Negative IU/L [facility] Blood 10/29/2024 3:56 PM EDT 10/29/2024 4:14 PM EDT Martin Hernandez MD LAB BLOOD ORDERABLES Fin al Result Performing Organization Address City/[facility]/ZIP Co de Phone Number [address] [address] * (ABNORMAL) LFTs (hepatic panel) (10/29/2024 3:56 PM EDT) ALKALINE PHOSPHATASE 141(H) 39 - 117 U/L [facility] TOTAL BILIRUBIN <0.2 0.0 - 1.2 mg/dL [facility] DIRECT BILIRUBIN <0.1 0.0 - 0.2 mg/dL [facility] Bilirubin (Indirect) NOT CALCULATED 0 - 1.5 mg/dL [facility] AST 17 0 - 37 U/L [facility] ALT 15 0 - 40 U/L [facility] TOTAL PROTEIN 7.8 6.5 - 8.0 g/dL [facility] ALBUMIN 4.4 3.9 - 4.8 g/dL [facility] GLOBULIN 3.4 1 - 4.8 g/dL [facility] A/G Ratio 1.29 1.00 - 4.80 RATIO [facility] Blood 10/29/2024 3:56 PM EDT 10/29/2024 4:14 PM EDT us Martin Hernandez MD LAB BLOOD ORDERABLES Fin al Result Performing Organization Address City/State/[facility] Co de Phone Number [facility] [address] [place] [address] * (ABNORMAL) CBC and differential (10/29/2024 3:56 PM EDT) WBC 13.56(H) 4.00 - 11.00 K/uL [facility] RBC 4.43 4.00 - 5.20 M/uL [facility] HGB 13.0 12.0 - 16.0 g/dL [facility] HCT 39.0 36.0 - 46.0 % [facility] PLT 343 150 - 450 K/uL [facility] MCV 88.0 80.0 - 100.0 fL [facility] MCH 29.3 27.0 - 31.0 pg [facility] MCHC 33.3 32.0 - 36.0 g/dL [facility] RDW 12.8 11.5 - 14.5 % [facility] MPV 10.1 8.4 - 12.0 fL [facility] NRBC 0.00 0.00 /100 WBCs [facility] ABSOLUTE NRBC 0.00 0.00 K/uL [facility] DIFF METHOD Auto [facility] NEUTS 51.5 48.0 - 76.0 % [facility] LYMPHS 15.5(L) 18.0 - 41.0 % [facility] MONOS 6.2 4.0 - 11.0 % [facility] EOS 26.1(H) 0.0 - 5.0 % [facility] BASOS 0.4 0.0 - 1.5 % [facility] Granulocytes, immature (%) 0.3 0.0 - 0.9 % [facility] ABSOLUTE NEUTS 6.99 1.92 - 7.60 K/uL [facility] ABSOLUTE LYMPHS 2.10 0.72 - 4.10 K/uL [facility] ABSOLUTE MONOS 0.84 0.16 - 1.10 K/uL [facility] ABSOLUTE EOS 3.54(H) 0.00 - 0.50 K/uL [facility] ABSOLUTE BASOS 0.05 0.00 - 0.15 K/uL [facility] Granulocytes, immature 0.04 0.00 - 0.09 K/uL [facility] Blood 10/29/2024 3:56 PM EDT 10/29/2024 4:14 PM EDT us Martin Hernandez MD LAB BLOOD ORDERABLES Fin al Result [address] [address] * (ABNORMAL) Lipase (10/29/2024 3:56 PM EDT) LIPASE 11(L) 16 - 63 U/L [facility] Blood 10/29/2024 3:56 PM EDT 10/29/2024 4:14 PM EDT Martin Hernandez MD LAB BLOOD ORDERABLES Fin al Result [address] [address] * Basic metabolic panel (10/29/2024 3:56 PM EDT) SODIUM 140 133 - 146 mmol/L [facility] CHLORIDE 104 96 - 108 mmol/L [facility] POTASSIUM 3.7 3.3 - 5.1 mmol/L [facility] CO2 22 21 - 35 mmol/L [facility] BUN 8 6 - 19 mg/dL [facility] CREATININE 0.70 0.5 - 1.5 mg/dL [facility] GLUCOSE 82 70 - 99 mg/dL [facility] CALCIUM 9.6 8.4 - 10.3 mg/dL [facility] EGFR 107 >59 mL/min/1.7 3m2 [facility] Comment:Estimated glomerular filtration rate calculated using the CKD-EPI refit equation. ANION GAP 18 10 - 20 mmol/L [facility] Blood 10/29/2024 3:56 PM EDT 10/29/2024 4:14 PM EDT Martin Hernandez MD LAB BLOOD ORDERABLES Fin al Result [facility] [address] [place] [address] from Last 3 Months Insurance [facility] MEDICARE REPLACEMENT CARE MEDICARE REPLACEMENT CARE MEDICARE REPLACEMENT CARE MEDICARE REPLACEMENT CARE MEDICARE REPLACEMENT MEDICARE REPLACEMENT Care Teams System Development Manager Relationship Specialty Start Date End Date Chadwick Jefferson MD [address] [place] [address] [place] [address] PCP - General Internal Medicine 11/25/23 Additional Source Comments The information contained in this document represents components of the legal health record. It is not the complete legal health record.[facility]
--- OUTSIDE RECORDS SUMMARY | 2025-01-21 08:52 | XMS_ITS | Patient Health Record ---
Author Organization Chadwick Jefferson MD Address [address] [place], [place] [address] Care Team Providers Care Real Estate Representative Name Role Phone Chadwick Jefferson Primary Care Provider Allergies No Known Allergies Results Component Value Reference Range Notes SARS-CoV2/FLU/RSV Reviewed date:02/07/2024 04:25:00 PM Interpretation: Performing Lab:[facility], [address] [place] [phone] Notes/Report: Influenza A PCR NEGATIVE Negative Influenza B PCR NEGATIVE Negative Resp Syncy Virus RNA Qual PCR NEGATIVE Negative SARS COV2 PCR INHOUSE NEGATIVE Negative All test results must be correlated with clinical findings. Negative results do not preclude SARS-CoV2, influenza A virus, influenza B virus and/or RSV infection and should not be used as the sole basis for treatment or other patient management decisions. Negative results must be combined with clinical observations, patient history, and epidemiological information. This test has not been evaluated for monitoring treatment of infection. This test has been authorized by the FDA under an Emergency Use Authorization (EUA) for use by authorized laboratories. Testing performed on the [employer] GeneXpert utilizing real-time RT-PCR. All SARS CoV2 and positive influenza A/B results are reported to [facility]. Complete Blood Count Auto Di ff Reviewed date:10/15/2024 12:49:01 PM Interpretation: Performing Lab:[facility], [address] [place] [phone] Notes/Report: White Blood Count 6.4 4.8-10.8 X10*3/uL Red Blood Count 4.27 4.20-5.50 X10*6/uL Hemoglobin 12.6 12.0-16.0 g/dl Hematocrit 36.5 37.0-47.0 % Mean Corpuscular Volume 85.5 80.0-98.0 fL Mean Corpuscular Hemoglobin 29.5 27.0-33.0 pg Mean Corpuscular HGB Conc 34.5 31.0-35.0 g/dl Red Cell Distribution Width 12.4 11.0-16.0 % Platelet Count 356 160-400 X10*3/uL Mean Platelet Volume 9.9 9.4-12.3 fL Neutrophils Percent Auto 60.4 45-73 % Imm Gran Pct Auto 0.3 0.0-0.4 % Lymphocytes Percent Auto 21.6 20-40 % Monocytes Percent Auto 8.4 2-11 % Eosinophils Percent Auto 8.5 0-4 % Basophils Percent Auto 0.8 0-2 % NRBC Pct Auto 0.0 0.0-0.2 /100WBC Neutrophils Absolute Auto 3.9 2.0-8.3 x10*3/u L Imm Gran Abs Auto 0.02 0.00-0.03 X10*3/uL Lymphocytes Absolute Auto 1.4 1.2-4.9 X10*3/u L Monocytes Absolute Auto 0.5 0.1-1.2 X10*3/uL Eosinophils Absolute Auto 0.6 0.0-0.4 X10*3/u L Basophils Absolute Auto 0.1 0.0-0.2 X10*3/uL NRBC Abs Auto 0.000 0.0-0.012 X10*3/uL Erythrocyte Sedimentation Ra te Reviewed date:10/15/2024 12:48:13 PM Interpretation: Performing Lab:[facility], [address] [place] [phone] Notes/Report: Erythrocyte Sedimentation Rate 25 0-20 MM/HR Patients with polycythemia and many hemoglobin abnormalities may have depressed sed rates whereas patients with anemia may have elevated sed rates. Comprehensive Devine. Panel Fa st Reviewed date:10/15/2024 12:48:38 PM Interpretation: Performing Lab:[facility], [address] [place] [phone] Notes/Report: Sodium 139 135-145 mmol/L Potassium 3.9 3.3-5.1 mmol/L Chloride 107 96-108 mmol/L Carbon Dioxide 25 22-29 mmol/L Anion Gap 11 12-20 Blood Urea Nitrogen 8 9-16 mg/dL Creatinine 0.59 0.5-1.4 mg/dL Estimated Glomerular Filt Rate > 60 Chronic Kidney Disease: Estimated GFR < 60 mL/min/1.73m2 Severe Kidney Disease: Estimated GFR < 15 mL/min/1.73m2 Glucose Fasting 89 60-99 mg/dL Calcium 9.0 8.4-10.2 mg/dL Bilirubin Total 0.4 0.0-1.0 mg/dL Aspartate Amino Transferase 17 5-31 U/L Alanine Aminotransferase 14 0-31 U/L Total Protein 7.4 6.5-8.0 g/dL Albumin Level 4.4 3.5-5.0 g/dL Alkaline Phosphatase 98 39-117 U/L TESSA Reflex Titer and Pattern Reviewed date:10/25/2024 01:27:45 PM Interpretation: Performing Lab:[facility], [address] [place] [phone] Notes/Report: Anti Nuclear Antibody Screen POSITIVE NEGATIVE TESSA IFA is a first line screen for detecting the presence of up to approximately 150 autoantibodies in various autoimmune diseases. A positive TESSA IFA result is suggestive of autoimmune disease and reflexes to titer and pattern. Further laboratory testing may be considered if clinically indicated. For additional information, please refer to http://education.[employer]/faq/FAQ1 77 (This link is being provided for informational/ educational purposes only.) Anti Nuclear Antibody Titer 1:160 Reference Range <1:40 Negative 1:40-1:80 Low Antibody Level >1:80 Elevated Antibody Level Anti Nuclear Antibody Pattern Nuclear, Nucleolar Nucleolar pattern is associated with systemic sclerosis (scleroderma), systemic sclerosis/polymyositis overlap and Sjogren's syndrome. AC-8,9,10: Nucleolar International Consensus on TESSA Patterns (https://doi.org/10.151 5/rzpx-4915-0051) TESSA Titer 2 1:80 A low level TESSA titer may be present in pre-clinical autoimmune diseases and normal individuals. Reference Range <1:40 Negative 1:40-1:80 Low Antibody Level >1:80 Elevated Antibody Level TESSA Pattern 2 Nuclear, Speckled Speckled pattern is associated with mixed connective tissue disease (MCTD), systemic lupus erythematosus (SLE), Sjogren's syndrome, dermatomyositis, and systemic sclerosis/polymyositis overlap. AC-2,4,5,29: Speckled International Consensus on TESSA Patterns (https://doi.org/10.151 5/eoyp-9859-5423) THIS TEST WAS PERFORMED AT: [facility] [address] [place] [phone] BRODY ZURITA MD TESSA Titer 3 TNP TESSA Pattern 3 TNP Rheumatoid Factor Reviewed date:10/15/2024 12:48:21 PM Interpretation: Performing Lab:[address] [phone] Notes/Report: Rheumatoid Factor < 13.0 <15.0 IU/mL Urinalysis and Microscopic Reviewed date:11/04/2024 06:48:39 PM Interpretation: Performing Lab:[address] [phone] Notes/Report: Color Urine Yellow Appearance Urine Clear PH 6.0 5.0-9.0 Glucose Urine UA Negative Negative mg/dL Urine Blood Negative Negative Specific [place] - Urine 1.025 1.005-1.025 Urine Protein Negative Neg-Trace mg/dL Urine Ketones Negative Negative mg/dL Nitrite Urine Negative Negative Leukocyte Esterase Urine Small (1+) Negative RBC Urine 0-2 0-2 /HPF WBC Urine 0-5 0-5 /HPF Squamous Epithelial Cell Urine 0-2 0-2 /HPF Bacteria Urine None Seen None Seen Hyaline Casts Urine 0-2 0-2 /LPF Reason For Referral Reason TESSA positive Diagnosis 1 TESSA positive (R76.8) Referral Organization Chadwick Jefferson MD Referring Provider First Name Chadwick Referring Provider Last Name Ronny Referring Provider Speciality Internal M edicine Referred Provider [facility] [place], [facility] Rheumatology Referred Provider Specialty Rheumatology General Notes Yara Dixon 0 10/25/2024 01:28:14 PM >info faxed, Yara Dixon 10/26/2024 10:07:49 AM > patient is aware of her appt Referral Priority Routine Referral Appointment Date 01/17/2025 Medications Medication SIG (Take, Route, Frequency, Duration) Notes Start Date End Date Status Albuterol Sulfate 0.63 MG/3ML 3 ml as needed Inhalation every 8 hrs for 14 days 04/18/2020 Active Ibuprofen 800 MG 1 tablet with food o r milk as needed Orally twice a day for 30 days 12/23/2022 Active PARoxetine HCl 10 MG TAKE 1 TABLET BY [facility] EVERY DAY IN THE MORNING for [...] day as needed for 10 days Active predniSONE 10 MG 1 tablet with food o r milk Orally 4 tabs for 3 days,3tabs for 3 days, 2 tabs for 3 days, and 1 tab for 3 days for 14 days 04/19/2024 Not-Taking Ondansetron HCl 4 MG 1 tablet Orally twi ce a day for 5 days 04/29/2022 Not-Taking ZyrTEC Allergy 10 MG 1 tablet Orally Onc e a day for 30 day(s) Active Ondansetron HCl 4 MG 1 tablet Orally Onc e a day for 30 days 11/01/2024 Active HM Vitamin D3 2000 UNIT 1 capsule Orally Once a day for 30 day(s) 02/06/2018 Active Celecoxib 200 MG TAKE 1 CAPSULE BY [facility] EVERY DAY WITH FOOD for 90 Active Immunizations Vaccine Route Administration Date Status Comme nts Fluarix Quadrivalent IM Intramuscular 03/16/2019 Administe red Covid Vaccine Unknown 08/02/2020 Administered Covid Vaccine Unknown 07/05/2020 Administered Moderna SARS-COV-2 Pfizer Unknown 03/27/2021 Administered TDaP Unknown 09/27/2017 Refused Fluarix Quadrivalent Unknown 02/06/2018 Refused Fluarix Quadrivalent Unknown 06/15/2021 Refused Social History Tobacco Use: Social History Observation Description Date Details (start date - stop date) Never Smoker NA - NA Tobacco Use/Smoking Question Answer Notes Patient is a nonsmoker Alcohol Screen Question Answer Notes Did you have a drink containing alcohol in the p ast year? No Points 0 Interpretation Negative Problems Problem Type SNOMED Code ICD Code Onset Dates Problem Status W/U Status Risk Notes Problem 47925491 Vitamin D deficiency (E55.9) Active confirmed Problem Anxiety (89953539) Anxiety (F41.9) Active confi rmed Problem Sinusitis (32679120) Sinusitis (J32.9) Active confirmed Problem 685424895 Environmental allergies (Z91.09) Active confirmed Problem Iron deficiency anemia (06325293) Iron deficiency anemia (D50.9) Active confirmed Problem 494331351 Seasonal allergies (J30.2) Active confirmed Problem 183092855896247 Moderate persistent asthma with acute exacerbation (J45.41) Active confirmed Problem 885976746 Lupus (M32.9) Active confirmed Problem 59602492 Sciatica of left side (M54.32) Active confirmed Problem 326787267 Hay fever (J30.1) Active confirmed Problem 019545134957192 Right sided sciatica (M54.31) Active confirmed Problem 41051424 Pagophagia (F50.89) Active confirmed Problem 39017068 Hypertension, unspecified type (I10) Active confirmed Problem Spinal cord compression (48279381) Spinal cord compression (G95.20) Active confirmed Problem 881415345551958 Perimenopause (N95.1) Active confirmed Problem 641601701 Allergy, initial encounter (T78.40XA) Active confirmed Problem 390544507953778 Episodic migraine (G43.909) Active confirmed Problem 713499391 Fibromyalgia syndrome (M79.7) Active confirmed Problem 32788355 Acute allergic rhinitis (J30.9) Active confirmed Vital Signs Blood pressure diastolic 70 mm Hg 11/01/2024 andrzej ght is up 10 pounds since 10-11-24 Height 62 in 11/01/2024 weight is up 10 pounds since 10-11-24 Blood pressure systolic 122 mm Hg 11/01/2024 weig ht is up 10 pounds since 10-11-24 Weight 160 lbs 11/01/2024 weight is up 10 pounds since 10-11-24 BMI 29.26 kg/m2 11/01/2024 weight is up 10 pounds since 10-11-24 Encounters Encounter Location Date Provider Diagnosis Chadwick Jefferson MD [address] [place] [address] [place] [id number] 11/01/2024 Chadwick Jefferson Hematuria R31.9 and Gastroenteritis K52.9 Chadwick Jefferson MD [address] [place] [id number] 02/03/2024 Chadwick Jefferson COVID-19 U07.1 Chadwick Jefferson MD [address] [place] [id number] 04/19/2024 Chadwick Jefferson Moderate persistent asthma with acute exacerbation J45.41 and Hypertension, unspecified type I10 Chadwick Jefferson MD [address] [place] [id number] 06/29/2024 Chadwick Jefferson Sinusitis J32.9 Chadwick Jefferson MD [address] [place] [address] Drive [address] [place] [id number] 10/11/2024 Chadwick Jefferson Arthralgia M25.50 Chadwick Jefferson MD [address] [id number] 05/29/2024 Chadwick Jefferson MD [address] [place] [id number] 10/16/2024 Chadwick Jefferson MD [address] [place] [address] [address] [id number] 10/30/2024 Chadwick Jefferson Assessments Encounter Date Diagnosis (ICD Code) Assessment Notes Treatment Notes Treatment Clinical Notes Section Notes 11/01/2024 Hematuria (ICD-10 - R31.9) ORDER PRINTED AND GIVEN TO PATIENT TO RETURN SPECIMEN, pending lab 11/01/2024 Gastroenteritis (ICD-10 - K52.9) patient verbalized understanding of medication and directions for use 02/03/2024 COVID-19 (ICD-10 - U07.1) THE ORDER WAS [place] [facility] [place] PATIENT REQUESTED, pending diagnostic testing 04/19/2024 Moderate persistent asthma with acute exacerbation [...] for work for 04/18 04/19 04/20 faxed 06/29/2024 Sinusitis (ICD-10 - J32.9) patient verbalized understanding of medication and dirctions for use. 10/11/2024 Arthralgia (ICD-10 - M25.50) PATIENT REQUESTS THAT ORDER BE FAXED [place] [facility] [place] [facility] 04/19/2024 Other Work note faxed driss riggs note for work for 04/18 04/19 04/20 faxed Plan Of Treatment Pending Test Test Name Order Date CT ABD & PELVIS WITH CONTRAST 03/03/2021 MRI BRAIN NO CONTRAST 04/16/2022 MRI BRAIN W&WO CONTRAST 04/15/2022 MRI LUMBAR SPINE NO CONTRAST 07/23/2022 XR CHEST 2 VIEW PA & LAT 03/22/2019 XR CHEST 2 VIEW PA & LAT 08/27/2021 XR GI SERIES 02/10/2021 US SOFT TISSUE 09/02/2023 INFLUENZA A/B BY PCR 05/04/2018 Complete Blood Count Auto Diff 5 Erythrocyte Sedimentation Rate 5 Urinalysis and Microscopic 11/01/2024 Comprehensive Devine. Panel Fast 5 TESSA Reflex Titer and Pattern 10/11/2024 Rheumatoid Factor 10/11/2024 Next Appt Details Provider Name:Chadwick Gay ier, 02/01/2025 03:00:00 PM, [address] [place] [address], [place] [address], [place], [place], [phone], Insurance Providers Payer Name Payer Address Payer Phone Subscriber Number Group Number Insured Name Patient Relationship to Insured Coverage Start Date Coverage End Date [facility] [address] [address] [place] [id number] Marivel Lopez Self - patient is the insured Medical (General) History Medical History History ICD Code hysterectomy and salpingectomy. ovaries still there
--- OUTSIDE RECORDS SUMMARY | 2025-01-21 08:52 | XMS_ITS | Encounter Summary ---
Author Organization [facility] Address [address] [place] [address] Phone Care Team Providers Care University Librarian Name Role Phone Chadwick Jefferson MD Primary Care Provider Encounter Details Date Type Department Care Team (Late st Contact Info) Description 10/29/2024 Procedure Pass [facility], Ct Scan - [address] [address] Social History Tobacco Use Types Packs/Day Years [...] PM EDT Sexual Orientation Not on file documented as of this encounter Functional Status * Calculated C-SSRS Risk Score (Lifetime/Recent) Answer Date of Assessment Author No Risk Indicated 10/29/2024 3:47 PM EDT Madeleine Vasquez, JAMES * [place] Suicide Severity Rating Scale (Screener/Recent Self-Report) Question Answer Date of Assessment Author 1. Wish to be (Past 1 Month) No 025 3:47 PM EDT Madeleine Vasquez, RN 2. Non-Specific Active Suici chiara Thoughts (Past 1 Month) No 10/29/2024 3:47 PM EDT Madeleine Vasquez, RN 6. Suicidal Behavior (Lifetime) No 3:47 PM EDT Madeleine Vasquez, RN documented as of this encounter Plan of Treatment Not on file documented as of this encounter Visit Diagnoses Not on filedocumented in this encounter Additional Health Concerns Infection Onset Date Last Indicated Resolved Time CDiff-Risk 10/29/2024 10/29/2024 10/30/2024 1:12 AM EDT documented as of this encounter Care Teams University Librarian Relationship Specialty Start Date End Date Chadwick Jefferson MD [address] [place] [address] [place] [address] PCP - General Internal Medicine 11/25/23 documented as of this encounter Additional Source Comments The information contained in this document represents components of the legal health record. It is not the complete legal health record.[facility]
== END 2025-01-21 08:49 | disposition home or self-care (01) ==
LOC: HO.XRAY 08:48
PROVIDERS: PCP Internal Medicine; Visit Provider Student in an Organized Health Care Education/Training Program
DX: M15.9 Polyosteoarthritis, unspecified (principal)
CPT/HCPCS: 72050; 72110; 72202; 73080; 73100; 73130; 73562; 73610; 73630

== ENCOUNTER → 2025-01-21 08:51 | Outpatient (BNV) | payer OTHER, SELFPAY | PROVIDERS: PCP Internal Medicine; Visit Provider Radiology Diagnostic Radiology | DX: M50.322 Other cervical disc degeneration at C5-C6 level (principal); M47.816 Spondylosis without myelopathy or radiculopathy, lumbar region; M15.9 Polyosteoarthritis, unspecified | CPT/HCPCS: 72050; 72110; 72202; 73080; 73100; 73130; 73562; 73610; 73630 ==

== ENCOUNTER 2025-01-24 14:21 | Outpatient (REF) | payer OTHER, SELFPAY ==
--- OUTSIDE RECORDS SUMMARY | 2024-10-11 07:45 | XMS_ITS ---
Author Organization Chadwick Jefferson MD Address [address] [place] [phone] Care Team Providers Care Conduit Cleaner Name Role Phone Chadwick Jefferson Primary Care Provider [phone] Allergies No Known Allergies REASON FOR VISIT joint pain all over started 10-10-24, Video [phone] Medications Medication SIG (Take, Route, Frequency, Duration) Notes Start Date End Date Status Ibuprofen 800 MG 1 tablet with food o r milk as needed Orally twice a day for 30 days 12/23/2022 Active PARoxetine HCl 10 MG TAKE 1 TABLET BY [facility] EVERY DAY IN THE MORNING for 90 [...] Celecoxib 200 MG TAKE 1 CAPSULE BY [facility] EVERY DAY WITH FOOD FOR 90 DAYS [...] Location Date Provider Diagnosis Chadwick Jefferson MD [address] [place] [address] Drive [address] [place] [phone] 10/11/2024 Chadwick Jefferson Arthralgia M25.50 Assessments Encounter Date Diagnosis (ICD Code) Assessment Notes Treatment Notes Treatment Clinical Notes Section Notes 10/11/2024 Arthralgia (ICD-10 - M25.50) PATIENT REQUESTS THAT ORDER BE FAXED TO [facility] Plan Of Treatment Treatment Notes Assessment Notes Arthralgia PATIENT REQUESTS PRIYANKA T ORDER BE FAXED TO [facility] Pending Test Test Name Order Date Complete Blood Count Auto Diff 5 Erythrocyte Sedimentation Rate 5 Comprehensive [place]. Panel Fast 5 TESSA Reflex Titer and Pattern 10/11/2024 Rheumatoid Factor 10/11/2024 Next Appt Details Follow Up: 2 Weeks, Reason: Provider Name:Chadwick Gay ier, 02/01/2025 03:00:00 PM, [address] [place] [address], Suite [facility], [place], [place], [phone], Progress Notes * Marivel LOPEZDOB: 1975 (49 yo F)Acc No.[id number]:10/11/2024 Patient: Danika SHORTDERONMarivel Provider: Brayan Jefferson MD :1975 A ge:49 Y S ex:Female Date:10/11/2024 Address:[address] [place], [place] [id number] Subjective: * Chief Complaints: * J oint pain all over started 7Video [phone] * HPI: S ymptom(s): Telehealth L ocation of provider rendering services: [address], [address], L ocation of patient: [...] joints are hurting. has been seen by html web developer.. is short of breath. wants lab work. [...] Treatment: ?LAB: Erythrocyte Sedimentation Rate* Kristin Hopkins 2024 11:57:34 AM EDT > COMING TODAY FOR LABS ?LAB: Comprehensive [place]. Panel Fast* Kristin Hopkins 2024 11:57:34 AM EDT > COMING TODAY FOR LABS ?LAB: TESSA Reflex Titer and Pattern* Kristin Hopkins 2024 11:57:34 AM EDT > COMING TODAY FOR LABS ?LAB: Rheumatoid Factor* Kristin Hopkins 2024 11:57:34 AM EDT > COMING TODAY FOR LABS Notes: PATIENT REQUESTS THAT ORDER BE FAXED TO [facility]IENT [facility]?? * Procedure Codes: * Follow Up: 2 Weeks * * Sign off status: Completed true * Provider: Brayan Jefferson MD Date: 0 10/11/2024 Generated for Dave de la garza/Erendira/eTransmitting on: 1 06:08 PM EDT History and Physical Notes * HPI (History of Present Illness) Category Sub-Category Detail Notes Category Not es Symptom(s) Telehealth Location of [facility] rendering services:: [address], [address] patient is a 49 yo female here with complaint of all joints are hurting. has been seen by html web developer.. is short of breath. wants lab work [...]
--- OUTSIDE RECORDS SUMMARY | 2024-10-16 06:35 | XMS_ITS ---
Author Organization Chadwick Jefferson MD Address [address] [place] [phone] Care Team Providers Care Scientific Programmer Analyst Name Role Phone Chadwick Jefferson Primary Care Provider REASON FOR VISIT work note Encounters Encounter Location Date Provider Diagnosis Chadwick Jefferson MD [address] [place] [phone] 10/16/2024 Chadwick Jefferson Plan Of Treatment Next Appt Details Provider Name:Chadwick Gay ier, 02/01/2025 03:00:00 PM, [address], [address], [place], [place], [phone], Progress Notes * Marivel BIGGSDOB: 1975 (49 yo F)Acc No.[id number]:10/16/2024 Patient: Marivel COOK :1975 A ge:49 Y S ex:Female Address:[address] [place] [address], [address] * true * Date: Generated for Printi ng/Faalbertg/eTransmitting on: 06:07 PM EDT
--- OUTSIDE RECORDS SUMMARY | 2024-10-25 09:45 | XMS_ITS ---
Author Organization Chadwick Jefferson MD Address [address] [place] [phone] Care Team Providers Care Youth Support Worker Name Role Phone Chadwick Jefferson Primary Care [...] HCl 10 MG TAKE 1 TABLET BY [facility] EVERY DAY IN THE MORNING for [...] Celecoxib 200 MG TAKE 1 CAPSULE BY [facility] EVERY DAY WITH FOOD FOR [...] Date Provider Diagnosis Chadwick Jefferson MD [address] [place], [place] [phone] 10/25/2024 Chadwick Jefferson Plan Of Treatment Next Appt Details Provider Name:Chadwick Gay ier, 02/01/2025 03:00:00 PM, 10 [facility], [address], [place], [place], [phone], Progress Notes * Marivel LOPEZDOB: 1975 (49 yo F)Acc No.[id number]:10/25/2024 Progress Notes Patient: Marivel COOK Provider: Brayan Jefferson MD :1975 A ge:49 Y S ex:Female Date:10/25/2024 Address:[address] [place], [place] [phone] Subjective: * Chief Complaints: * 1 . [...] for Dave de la garza/Erendira/Martinsmitting on: 1 06:08 PM EDT History and Physical Notes * HPI (History of Present Illness) Category Sub-Category Detail Notes Category Not es Symptom(s) patient is a 49 yo female here for 2 week follow up visit
--- OUTSIDE RECORDS SUMMARY | 2024-10-30 05:06 | XMS_ITS ---
Author Organization Chadwick Jefferson MD Address [address] [place] [phone] Care Team Providers Care Airfield Defence Guard Name Role Phone Chadwick Jefferson Primary Care Provider [phone] REASON FOR VISIT ER visit rec'd Encounters Encounter Location Date Provider Diagnosis Chadwick Jefferson MD [address] [place] [address] [address] [place], [place] [phone] 10/30/2024 Chadwick Jefferson Plan Of Treatment Next Appt Details Provider Name:Chadwick Gay ier, 02/01/2025 03:00:00 PM, 10 [facility], [address], [place], [place], [phone], Progress Notes * Marivel BIGGSDOB: 1975 (49 yo F)Acc No.[id number]:10/30/2024 Patient: Marivel COOK :1975 A ge:49 Y S ex:Female Address:[address] [place] [address], [address] * true * Date: Generated for Printi holli/Jaycobg/eTransmitting on: 06:08 PM EDT
--- OUTSIDE RECORDS SUMMARY | 2024-11-01 11:15 | XMS_ITS ---
Author Organization Chadwick Jefferson MD Address [address] [place] [phone] Care Team Providers Care Qa Automation Architect Name Role Phone Chadwick Jefferson Primary Care Provider [phone] Allergies No Known Allergies REASON FOR [...] HCl 10 MG TAKE 1 TABLET BY [facility] EVERY DAY IN THE MORNING [...] Celecoxib 200 MG TAKE 1 CAPSULE BY [facility] EVERY DAY WITH FOOD FOR [...] Location Date Provider Diagnosis Chadwick Jefferson MD [address] [place] [address] [place] [phone] 11/01/2024 Chadwick Jefferson Hematuria R31.9 and Gastroenteritis [...] Reason: Provider Name:Chadwick palafox, 02/01/2025 03:00:00 PM, [address] [place] [address], [address], [place], [place], [phone], Progress Notes * Marisabel LOPEZ: 1975 (49 yo F)Acc No.[id number]:11/01/2024 Patient: Marivel COOK Provider: Brayan Jefferson MD :1975 A ge:49 Y S ex:Female Date:11/01/2024 Address:[address] [place], [place] [address] [facility] Subjective: * Chief Complaints: * 1 . [...] Generated for Dave de la garza/Erendira/Destiniitting on: 06:07 PM EDT History and Physical Notes * [...]
--- NOTE | ~2025-01-24 | XR_ITS ---
EXAMINATION: XR ANKLE 3 OR MORE VIEWS LEFT HISTORY: M15.9 - Polyosteoarthritis, unspecified COMPARISON: There are no prior studies available for comparison. FINDINGS: Three views of the left ankle are submitted. Osseous mineralization is normal. There is no fracture or dislocation. The joint spaces are preserved. The soft tissues are unremarkable. XR/XR ankle LT min 3V IMPRESSION: Unremarkable examination of the left ankle. Electronically signed by: Lincoln Espinoza MD 01/30/2025 02:14 PM EDT
--- OUTSIDE RECORDS SUMMARY | 2025-01-24 18:07 | XMS_ITS | Clinical Summary ---
Author Organization [facility] Address [address] [place] [address] Phone Care Team Providers Care Air Quality Technician Name Role Phone Chadwick Jefferson MD Primary [...] 11:11 PM EDT Emergency [facility] [address] [place] [address] Discharge Disposition: Home or Self Care 10/29/2024 Procedure [facility], Ct Scan - [facility] [address] [place] [address] from Last 3 Months Social History Tobacco [...] acute abnormality in the abdomen or pelvis. Kylei Sage PA-C IMG CT ABD/PELVIS Final Res ult * (ABNORMAL) Urinalysis w/reflex Urine Culture (10/29/2024 7:33 PM EDT) COLOR Yellow Yellow [facility] CLARITY Clear [facility] GLUCOSE Negative Negative [facility] BILI Negative Negative [facility] KETONES 1+(A) Negative [facility] SPECIFIC GRAVITY 1.025 1.005 - 1.030 [facility] BLOOD Trace(A) Negative [facility] PH 6.0 5.0 - 8.0 [facility] Protein-UA Negative Negative [facility] NITRITE Negative Negative [facility] Leukocyte esterase, ur Negative Negative [facility] Urine (Urine) 10/29/2024 7:3 3 PM EDT 10/29/2024 8:17 PM EDT Kylie Sage PA-C URINE ORDERABLES Final Resu lt Performing Organization Address [facility]/ZIP Co de Phone Number [address] [address] * HCG, serum qualitative (10/29/2024 3:56 PM EDT) HCG, QUALITATIVE Negative Negative IU/L [facility] Blood 10/29/2024 3:56 PM EDT 10/29/2024 4:14 PM EDT Martin Hernandez MD LAB BLOOD ORDERABLES Fin al Result Performing Organization Address City/[facility]/ZIP Co de Phone Number [address] [address] * (ABNORMAL) LFTs (hepatic panel) (10/29/2024 3:56 PM EDT) ALKALINE PHOSPHATASE 141(H) 39 - 117 U/L [facility] TOTAL BILIRUBIN <0.2 0.0 - 1.2 mg/dL [facility] DIRECT BILIRUBIN <0.1 0.0 - 0.2 mg/dL [facility] Bilirubin (Indirect) NOT CALCULATED 0 - 1.5 mg/dL [facility] AST 17 0 - 37 U/L [facility] ALT 15 0 - 40 U/L [facility] TOTAL PROTEIN 7.8 6.5 - 8.0 g/dL [facility] ALBUMIN 4.4 3.9 - 4.8 g/dL [facility] GLOBULIN 3.4 1 - 4.8 g/dL [facility] A/G Ratio 1.29 1.00 - 4.80 RATIO [facility] Blood 10/29/2024 3:56 PM EDT 10/29/2024 4:14 PM EDT us Martin Hernandez MD LAB BLOOD ORDERABLES Fin al Result Performing Organization Address City/State/[facility] Co de Phone Number [facility] [address] [place] [address] * (ABNORMAL) CBC and differential (10/29/2024 3:56 PM EDT) WBC 13.56(H) 4.00 - 11.00 K/uL [facility] RBC 4.43 4.00 - 5.20 M/uL [facility] HGB 13.0 12.0 - 16.0 g/dL [facility] HCT 39.0 36.0 - 46.0 % [facility] PLT 343 150 - 450 K/uL [facility] MCV 88.0 80.0 - 100.0 fL [facility] MCH 29.3 27.0 - 31.0 pg [facility] MCHC 33.3 32.0 - 36.0 g/dL [facility] RDW 12.8 11.5 - 14.5 % [facility] MPV 10.1 8.4 - 12.0 fL [facility] NRBC 0.00 0.00 /100 WBCs [facility] ABSOLUTE NRBC 0.00 0.00 K/uL [facility] DIFF METHOD Auto [facility] NEUTS 51.5 48.0 - 76.0 % [facility] LYMPHS 15.5(L) 18.0 - 41.0 % [facility] MONOS 6.2 4.0 - 11.0 % [facility] EOS 26.1(H) 0.0 - 5.0 % [facility] BASOS 0.4 0.0 - 1.5 % [facility] Granulocytes, immature (%) 0.3 0.0 - 0.9 % [facility] ABSOLUTE NEUTS 6.99 1.92 - 7.60 K/uL [facility] ABSOLUTE LYMPHS 2.10 0.72 - 4.10 K/uL [facility] ABSOLUTE MONOS 0.84 0.16 - 1.10 K/uL [facility] ABSOLUTE EOS 3.54(H) 0.00 - 0.50 K/uL [facility] ABSOLUTE BASOS 0.05 0.00 - 0.15 K/uL [facility] Granulocytes, immature 0.04 0.00 - 0.09 K/uL [facility] Blood 10/29/2024 3:56 PM EDT 10/29/2024 4:14 PM EDT us Martin Hernandez MD LAB BLOOD ORDERABLES Fin al Result [address] [address] * (ABNORMAL) Lipase (10/29/2024 3:56 PM EDT) LIPASE 11(L) 16 - 63 U/L [facility] Blood 10/29/2024 3:56 PM EDT 10/29/2024 4:14 PM EDT Martin Hernandez MD LAB BLOOD ORDERABLES Fin al Result [address] [address] * Basic metabolic panel (10/29/2024 3:56 PM EDT) SODIUM 140 133 - 146 mmol/L [facility] CHLORIDE 104 96 - 108 mmol/L [facility] POTASSIUM 3.7 3.3 - 5.1 mmol/L [facility] CO2 22 21 - 35 mmol/L [facility] BUN 8 6 - 19 mg/dL [facility] CREATININE 0.70 0.5 - 1.5 mg/dL [facility] GLUCOSE 82 70 - 99 mg/dL [facility] CALCIUM 9.6 8.4 - 10.3 mg/dL [facility] EGFR 107 >59 mL/min/1.7 3m2 [facility] Comment:Estimated glomerular filtration rate calculated using the CKD-EPI refit equation. ANION GAP 18 10 - 20 mmol/L [facility] Blood 10/29/2024 3:56 PM EDT 10/29/2024 4:14 PM EDT Martin Hernandez MD LAB BLOOD ORDERABLES Fin al Result [facility] [address] [place] [address] from Last 3 Months Insurance [facility] MEDICARE REPLACEMENT CARE MEDICARE REPLACEMENT CARE MEDICARE REPLACEMENT CARE MEDICARE REPLACEMENT CARE MEDICARE REPLACEMENT MEDICARE REPLACEMENT Care Teams Air Quality Technician Relationship Specialty Start Date End Date Chadwick Jefferson MD [address] [place] [address] [place] [address] PCP - General Internal Medicine 11/25/23 Additional Source Comments The information contained in this document represents components of the legal health record. It is not the complete legal health record.[facility]
--- OUTSIDE RECORDS SUMMARY | 2025-01-24 18:08 | XMS_ITS | Patient Health Record ---
Author Organization Chadwick Jefferson MD Address [address] [place], [place] [id number] Care Team Providers Care Emergency Department Name Role Phone Chadwick Jefferson Primary Care Provider Allergies No Known Allergies Results Component Value Reference Range Notes SARS-CoV2/FLU/RSV Reviewed date:02/07/2024 04:25:00 PM Interpretation: Performing Lab:[facility], [address] [place] [phone] Notes/Report: Influenza A PCR NEGATIVE Negative Influenza [...] by authorized laboratories. Testing performed on the happin! GeneXpert utilizing real-time RT-PCR. All SARS CoV2 and positive influenza A/B results are reported to [facility]. Complete Blood Count Auto Di ff Reviewed date:10/15/2024 12:49:01 PM Interpretation: Performing Lab:[facility], [address] [place] [phone] Notes/Report: White Blood Count 6.4 4.8-10.8 X10*3/uL [...] 0.0-0.2 /100WBC Neutrophils Absolute Auto 3.9 2.0-8.3 x10*3/uL Imm Gran Abs Auto 0.02 0.00-0.03 X10*3/uL Lymphocytes Absolute Auto 1.4 1.2-4.9 X10*3/uL Monocytes Absolute Auto 0.5 0.1-1.2 X10*3/uL Eosinophils Absolute Auto 0.6 0.0-0.4 X10*3/uL Basophils Absolute Auto 0.1 0.0-0.2 X10*3/uL NRBC Abs Auto 0.000 0.0-0.012 X10*3/uL Erythrocyte Sedimentation Ra te Reviewed date:10/15/2024 12:48:13 PM Interpretation: Performing Lab:[facility], [address] [place] [phone] Notes/Report: Erythrocyte Sedimentation Rate 25 0-20 MM/HR Patients with polycythemia and many hemoglobin abnormalities may have depressed sed rates whereas patients with anemia may have elevated sed rates. Comprehensive Buras. Panel Fa st Reviewed date:10/15/2024 12:48:38 PM Interpretation: Performing Lab:[facility], [address] [place] [phone] Notes/Report: Sodium 139 135-145 mmol/L Potassium 3.9 [...] Pattern Reviewed date:10/25/2024 01:27:45 PM Interpretation: Performing Lab:[facility], [address] [place] [phone] Notes/Report: Anti Nuclear Antibody Screen POSITIVE NEGATIVE TESSA IFA is a first line screen for detecting the presence of up to approximately 150 autoantibodies in various autoimmune diseases. A positive TESSA IFA result is suggestive of autoimmune disease and reflexes to titer and pattern. Further laboratory testing may be considered if clinically indicated. For additional information, please refer to http://education.[place]/faq/ DFR817 (This link is being provided for informational/ educational purposes only.) Anti Nuclear Antibody Titer 1:160 Reference Range <1:40 Negative 1:40-1:80 Low Antibody Level >1:80 Elevated Antibody Level Anti Nuclear Antibody Pattern Nuclear, Nucleolar Nucleolar pattern is associated with systemic sclerosis (scleroderma), systemic sclerosis/polymyositi s overlap and Sjogren's syndrome. AC-8,9,10: Nucleolar International Consensus on TESSA Patterns (https://doi.org/10.1 515/rbtr-4939-4939) ETSSA Titer 2 1:80 A low level TESSA titer may be present in pre-clinical autoimmune diseases and normal individuals. Reference Range <1:40 Negative 1:40-1:80 Low Antibody Level >1:80 Elevated Antibody Level TESSA Pattern 2 Nuclear, Speckled Speckled pattern is associated with mixed connective tissue disease (MCTD), systemic lupus erythematosus (SLE), Sjogren's syndrome, dermatomyositis, and systemic sclerosis/polymyositi s overlap. AC-2,4,5,29: Speckled International Consensus on TESSA Patterns (https://doi.org/10.1 515/klzo-7965-9322) THIS TEST WAS PERFORMED AT: [employer] [address] [place] [phone] BRODY ZURITA MD TESSA Titer 3 TNP TESSA Pattern 3 TNP Rheumatoid Factor Reviewed date:10/15/2024 12:48:21 PM Interpretation: Performing Lab:[address] [phone] Notes/Report: Rheumatoid Factor < 13.0 <15.0 IU/mL Urinalysis and Microscopic Reviewed date:11/04/2024 06:48:39 PM Interpretation: Performing Lab:[address] [phone] Notes/Report: Color Urine Yellow Appearance Urine Clear PH 6.0 5.0-9.0 Glucose Urine UA Negative Negative mg/dL Urine Blood Negative Negative Specific Woodman - Urine 1.025 1.005-1.025 Urine Protein Negative Neg-Trace mg/dL Urine Ketones Negative Negative mg/dL Nitrite Urine Negative Negative Leukocyte Esterase Urine Small (1+) Negative RBC Urine 0-2 0-2 /HPF WBC Urine 0-5 0-5 /HPF Squamous Epithelial Cell Urine 0-2 0-2 /HPF Bacteria Urine None Seen None Seen Hyaline Casts Urine 0-2 0-2 /LPF XR cervical spine 4V Reviewed date:01/22/2025 12:36:02 PM Interpretation: Performing Lab: Notes/Report: [address] [address] XRay Report Signed Patient: Marivel Sandoval MR#: [id number] 82 : 1975 Acct:[id number] Age/Sex: 49 / F ADM Date: 01/21/25 Loc: HO.XRAY Attending Dr: Beth Bentley MD Ordering Physician: Beth Bentley MD Date of Service: 01/21/25 Procedure(s): XR cervical spine 4V Accession Number(s): [id number] cc: Beth Bentley MD; Chadwick Jefferson MD Reason for Exam: M15.9 - Polyosteoarthritis, unspecified CLINICAL HISTORY: M15.9 - Polyosteoarthritis, unspecified Five views cervical spine Comparison: None provided Findings: The usual cervical lordosis is reversed with a mild kyphosis centered at C4-C5. No spondylolisthesis or facet dislocation. Vertebral body heights are maintained. Mild cervical discogenic degenerative disease which is most conspicuous at C5-C6. Mild multilevel facet and uncovertebral osteoarthritis. No definite neural foraminal narrowing. Small focus of nuchal ligament heterotopic ossification at the level of C6. Prevertebral soft tissues are not abnormally thickened. IMPRESSION: No acute findings. Mild degenerative changes. This document has been electronically signed by: Hollis Stinson DO on 01/21/2025 10:53:05 Dictated By: Hollis Stinson MD Signed By: <Electronically signed by Hollis Stinson MD in OV> 01/21/25 1054 DD/ 1053 TD/TT: 01/21/25 1053 Analysis Evaluator: [place] [address] XRay Report Signed Patient: Brad Sandoval MR#: [id number] 82 : 1975 Acct:[id number] Age/Sex: 49 / F ADM Date: 01/21/25 Loc: HO.XRAY Attending Dr: Iron Bentley MD Ordering Physician: Beth Bentley MD Date of Service: 01/21/25 Procedure(s): XR cervical spine 4V Accession Number(s): [id number] cc: Beth Bentley MD ; Chadwick Jefferson MD Reason for Exam: M15 .9 - Polyosteoarthritis, unspecified CLINICAL HISTORY: M1 5.9 - Polyosteoarthritis, unspecified Five views cervical spine Comparison: None provided Findings: The usual cervical lordosis is reversed with a mild kyphosis centered at C4-C5. No spondylolisthesis or facet dislocation. Vertebral body heigh ts are maintained. Mild cervical discog enic degenerative disease which is most conspicuous at C5-C6. Mild multilev el facet and uncovertebral osteoarthritis. No definite neural foraminal narrowing. Small focus of nuchal ligament heterotopic ossification at the level of C6. Prevertebral soft tissues are not abnormally thickened. IMPRESSION: No acute findings. M ild degenerative changes. This document has be en electronically signed by: Hollis Stinson DO on 01/21/2025 10:53:05 Dictated By: Hollis Stinson MD Signed By: <Electronically signed by Hollis Stinson MD in OV> 01/21/25 1054 DD/ 1053 TD/TT: 01/21/25 105 Analysis Evaluator: XR lumbar spine 4V min Reviewed date:01/22/2025 12:35:26 PM Interpretation: Performing Lab: Notes/Report: [address] [address] XRay Report Signed Patient: Marivel Sandoval MR#: [id number] 82 : 1975 Acct:[id number] Age/Sex: 49 / F ADM Date: 01/21/25 Loc: [facility] Attending Dr: Beth Bentley MD Ordering Physician: Beth Bentley MD Date of Service: 01/21/25 Procedure(s): XR lumbar spine 4V min Accession Number(s): [id number] cc: Beth Bentley MD; Chadwick Jefferson MD Reason for Exam: M15.9 - Polyosteoarthritis, unspecified CLINICAL HISTORY: M15.9 - Polyosteoarthritis, unspecified 3 views lumbar spine Comparison: MR/SR - MR LUMBAR SPINE WITHOUT IV CONTRAST - 09/20/22 08:41 EDT Findings: The usual lumbar lordosis is maintained without spondylolisthesis. Vertebral body heights are maintained. Mild lower thoracic discogenic degenerative disease. Minimal lumbar discogenic degenerative disease. Multilevel lumbar facet osteoarthritis. IMPRESSION: No acute findings. Minimal lumbar discogenic degenerative disease. Multilevel lumbar facet osteoarthritis. This document has been electronically signed by: Hollis Stinson DO on 01/21/2025 10:58:45 Dictated By: Hollis Stinson MD Signed By: <Electronically signed by Hollis Stinson MD in OV> 01/21/25 1059 DD/ 1058 TD/TT: 01/21/25 1058 Analysis Evaluator: [address] [address] XRay Report Signed Patient: Brad Sandoval MR#: [id number] 82 : 1975 Acct:[id number] Age/Sex: 49 / F ADM Date: 01/21/25 Loc: HO.XRAY Attending Dr: Iron Bentley MD Ordering Physician: Beth Bentley MD Date of Service: 01/21/25 Procedure(s): XR lum bar spine 4V min Accession Number(s): [id number] cc: Beth Bentley MD ; Chadwick Jefferson MD Reason for Exam: M15 .9 - Polyosteoarthritis, unspecified CLINICAL HISTORY: M1 5.9 - Polyosteoarthritis, unspecified 3 views lumbar spine Comparison: MR/SR - MR LUMBAR SPINE WITHOUT IV CONTRAST - 09/20/22 08:41 EDT Findings: The usual lumbar lordosis is maintained without spondylolisthesis. Vertebral body heigh ts are maintained. Mild lower thoracic discogenic degenerative disease. Minimal lumbar discogenic degenerat kane disease. Multilevel lumbar facet osteoarthritis. IMPRESSION: No acute findings. Minimal lumbar discogenic degenerative disease. Multilevel lumbar fa cet osteoarthritis. This document has be en electronically signed by: Hollis Stinson DO on 01/21/2025 10:58:45 Dictated By: Hollis Stinson MD Signed By: <Electronically signed by Hollis Stinson MD in OV> 01/21/25 1059 DD/ 1058 TD/TT: 01/21/25 1058 Analysis Evaluator: Reason For Referral Reason TESSA positive Diagnosis 1 TESSA positive (R76.8) Referral Organization Chadwick Jefferson MD Referring Provider First Name Chadwick Referring Provider Last Name Ronny Referring Provider Speciality Internal M edicine Referred Provider C Rheumatology, [facility] Rheumatology Referred Provider Specialty Rheumatology General Notes [...] HCl 10 MG TAKE 1 TABLET BY [facility] EVERY DAY IN THE MORNING for [...] Celecoxib 200 MG TAKE 1 CAPSULE BY [facility] EVERY DAY WITH FOOD for 90 Active [...] Problem Status W/U Status Risk Notes Problem 85912075 Vitamin D deficiency (E55.9) Active confirmed Problem Anxiety (58579141) Anxiety (F41.9) Active confi rmed Problem Sinusitis (03817656) Sinusitis (J32.9) Active confirmed Problem 234180805 Environmental allergies (Z91.09) Active confirmed Problem Iron deficiency anemia (56527760) Iron deficiency anemia (D50.9) Active confirmed Problem 257869732 Seasonal allergies (J30.2) Active confirmed Problem 634637213920112 Moderate persistent asthma with acute exacerbation (J45.41) Active confirmed Problem 348435638 Lupus (M32.9) Active confirmed Problem 61787976 Sciatica of left side (M54.32) Active confirmed Problem 219288511 Hay fever (J30.1) Active confirmed Problem 429038776701573 Right sided sciatica (M54.31) Active confirmed Problem 26441320 Pagophagia (F50.89) Active confirmed Problem 50043520 Hypertension, unspecified type (I10) Active confirmed Problem Spinal cord compression (15323118) Spinal cord compression (G95.20) Active confirmed Problem 801023366216798 Perimenopause (N95.1) Active confirmed Problem 805029858 Allergy, initial encounter (T78.40XA) Active confirmed Problem 778777764627886 Episodic migraine (G43.909) Active confirmed Problem 034041128 Fibromyalgia syndrome (M79.7) Active confirmed Problem 15069236 Acute allergic rhinitis (J30.9) Active confirmed Vital [...] Diagnosis Chadwick Jefferson MD [address] [place] [id number] 11/01/2024 Chadwick Jefferson Hematuria R31.9 and Gastroenteritis K52.9 Chadwick Jefferson MD [address] [place] [id number] 02/03/2024 Chadwick Jefferson COVID-19 U07.1 Chadwick Jefferson MD [address] [place] [id number] 04/19/2024 Chadwick Jefferson Moderate persistent asthma with acute exacerbation J45.41 and Hypertension, unspecified type I10 Chadwick Jefferson MD [address] [place] [id number] 06/29/2024 Chadwick Jefferson Sinusitis J32.9 Chadwick Jefferson MD [address] [place] [id number] 10/11/2024 Chadwick Jefferson Arthralgia M25.50 Chadwick Jefferson MD [address] [id number] 05/29/2024 Chadwick Jefferson MD [address] [place] [id number] 10/16/2024 Chadwick Jefferson MD [address] [id number] 10/30/2024 Chadwick Jefferson Assessments Encounter Date Diagnosis (ICD Code) Assessment Notes Treatment Notes Treatment Clinical Notes Section Notes 11/01/2024 Hematuria (ICD-10 - R31.9) ORDER PRINTED AND GIVEN TO PATIENT TO RETURN SPECIMEN, pending lab 11/01/2024 Gastroenteritis (ICD-10 - K52.9) patient verbalized understanding of medication and directions for use 02/03/2024 COVID-19 (ICD-10 - U07.1) THE ORDER WAS FAXED TO [facility] PATIENT REG PATIENT REQUESTED, pending diagnostic testing [...] PATIENT REQUESTS THAT ORDER BE FAXED TO [facility] PATIENT REG 04/19/2024 Other Work note faxed [...] Rate 5 Urinalysis and Microscopic 11/01/2024 Comprehensive Buras. Panel Fast 5 TESSA Reflex Titer and Pattern 10/11/2024 Rheumatoid Factor 10/11/2024 Next Appt Details Provider Name:Chadwick Danika Deidra ier, 02/01/2025 03:00:00 PM, [address] [place] [address], [address], [place], [place], [phone], Insurance Providers Payer Name Payer Address Payer Phone Subscriber Number Group Number Insured Name Patient Relationship to Insured Coverage Start Date Coverage End Date [facility] [address] [address] [place] [phone] [id number] Marivel Lopez Self - patient is the insured Medical (General) History Medical History History ICD Code hysterectomy and salpingectomy. ovaries still there
--- OUTSIDE RECORDS SUMMARY | 2025-01-24 18:09 | XMS_ITS | Encounter Summary ---
Author Organization [facility] Address [address] [place] [address] Phone Care Team Providers Care Sales Promotion Manager Name Role Phone Chadwick Jefferson MD Primary Care Provider Encounter Details Date Type Department Care Team (Late st Contact Info) Description 10/29/2024 Procedure Pass [facility], Ct Scan - [address] [address] Social History Tobacco Use Types Packs/Day Years [...] 3:47 PM EDT Madeleine Vasquez, JAMES * [place] Suicide Severity Rating Scale (Screener/Recent Self-Report) Question [...] documented as of this encounter Care Teams Sales Promotion Manager Relationship Specialty Start Date End Date Chadwick Jefferson MD [address] [place] [address] [place] [address] PCP - General Internal Medicine 11/25/23 documented as of this encounter Additional Source Comments The information contained in this document represents components of the legal health record. It is not the complete legal health record.[facility]
== END 2025-01-24 14:22 | disposition home or self-care (01) ==
LOC: HO.XRAY 14:21
PROVIDERS: PCP Internal Medicine; Visit Provider Student in an Organized Health Care Education/Training Program
DX: M15.9 Polyosteoarthritis, unspecified (principal)
CPT/HCPCS: 73610

== ENCOUNTER → 2025-01-24 14:25 | Outpatient (BNV) | payer OTHER, SELFPAY | PROVIDERS: PCP Internal Medicine; Visit Provider Radiology Diagnostic Radiology | DX: M15.9 Polyosteoarthritis, unspecified (principal) | CPT/HCPCS: 73610 ==

== ENCOUNTER 2025-03-14 14:44 | Outpatient (AMB) | payer OTHER, SELFPAY ==
--- OUTSIDE RECORDS SUMMARY | 2024-04-19 02:30 | XMS_ITS ---
Author Organization Chadwick Jefferson MD Address [address] [place], [place] [phone] Care Team Providers Care Manager Utilization Management Name Role Phone Chadwick Jefferson Primary Care Provider Allergies No Known Allergies REASON FOR VISIT cold, congested, discuss her blood pressure and her A1C 5.6 was check by the PA from [employer], [facility] congestion runny nose, Video [phone] Medications Medication SIG (Take, Route, Frequency, Duration) Notes Start Date End Date Status Ibuprofen 800 MG 1 tablet with food o r milk as needed Orally twice a day for 30 days 12/23/2022 Active Ondansetron HCl 4 MG 1 tablet Orally twi ce a day for 5 days 04/29/2022 Not-Taking Albuterol Sulfate 0.63 MG/3ML 3 ml as needed Inhalation every 8 hrs for 14 days 04/18/2020 Active predniSONE 10 MG 1 tablet with food o r milk Orally 4 tabs for 3 days,3tabs for 3 days, 2 tabs for 3 days, and 1 tab for 3 days for 14 days 04/19/2024 Active Celecoxib 200 MG TAKE 1 CAPSULE BY MO [facility] EVERY DAY WITH FOOD FOR 90 DAYS for 90 Active SUMAtriptan Succinate 50 MG take 1 tablet at least 2 hours between doses as needed orally once a day at first sign of migraine 30 days Orally Twice a day as needed for 10 days Active PARoxetine HCl 10 MG TAKE 1 TABLET BY MO [facility] EVERY DAY IN THE MORNING FOR 30 DAYS for 90 Active HM Vitamin D3 2000 UNIT 1 capsule Orally Once a day for 30 day(s) 02/06/2018 Active ZyrTEC Allergy 10 MG 1 tablet Orally Onc e a day for 30 day(s) Active Fluticasone Propionate 50 MCG/ACT 1 spray in each nostril Nasally Once a day for 30 day(s) 09/03/2022 Active Advair Diskus 250-50 MCG/DOSE 1 puff Inhalation Twice a day 06/15/2021 Active Problems Problem Type SNOMED Code ICD Code Onset Dates Problem Status W/U Status Risk Notes Problem [id number] Hypertension, unspecified type (I10) Active confirmed Vital Signs Height 62 in 04/19/2024 Encounters Encounter Location Date Provider Diagnosis Chadwick Jefferson MD [address] [place] [address] [address] [place], [place] [phone] 04/19/2024 Chadwick Jefferson Moderate persistent asthma with acute exacerbation J45.41 and Hypertension, unspecified type I10 Assessments Encounter Date Diagnosis (ICD Code) Assessment Notes Treatment Notes Treatment Clinical Notes Section Notes 04/19/2024 Moderate persistent asthma with acute exacerbation (ICD-10 - J45.41) patient verbalized understandingof medication and directions for use. needs note for work for 04/18 04/19 04/20 faxed 04/19/2024 Hypertension, unspecified type (ICD-10 - I10) nurse came to her house and found her bp to be high. i don't have the reading but all of her bp's in my office have been normal. will recheck at her next visit needs note for work for 04/18 04/19 04/20 faxed 04/19/2024 Other Work note faxed driss riggs note for work for 04/18 04/19 04/20 faxed Plan Of Treatment Medication Medication Name Sig Start Date Stop Date Notes Ibuprofen 800 MG 1 tablet with food o r milk as needed Orally twice a day for 30 days 12/23/2022 predniSONE 10 MG 1 tablet with food o r milk Orally 4 tabs for 3 days,3tabs for 3 days, 2 tabs for 3 days, and 1 tab for 3 days for 14 days 04/19/2024 Treatment Notes Assessment Notes Moderate persistent asthma w ith acute exacerbation patient verbalized understandingof medication and directions for use. Hypertension, unspecified type nurse cam e to her house and found her bp to be high. i don't have the reading but all of her bp's in my office have been normal. will recheck at her next visit Other Work note faxed Next Appt Details Provider Name:Chadwick Gay ier, 06/06/2025 03:00:00 PM, [address], [address], [place], [place], [phone], Progress Notes * Marivel LOPEZDOB: 1975 (48 yo F)Acc No.[id number]:04/19/2024 Patient: Marivel Moore Provider: Brayan Jefferson MD :1975 A ge:48 Y S ex:Female Date:04/19/2024 Address:[address] [place], [place] [phone] Subjective: * Chief Complaints: * c old, congested, discuss her blood pressure and her A1C 5.6 was check by the PA from [employer] congestion runny noseVideo [phone] * HPI: S ymptom(s): Telehealth L ocation of provider rendering services: [address], [address], L ocation of patient: a t address listed in demographics for today's visit, P atient identification confirmed using: SASHA Barger ame, SSN, Insurance information, T elehealth method: V ideo conference where patient is visible to the provider of care, C onsent: P atient verbally consented to treatment, Patient verbally consented to billing insurance company, Patient informed of any privacy concerns related to method of visit. patientis a 48 yo female video telehealth visit , here as emergency. chest hurts complaining of feeling congsted, with cough and runny nose. . pa from insurance took her bp. * ROS: G eneral/Constitutional: Denies C hills. D enies F atigue. D enies F ever. D enies H eadache. E NT: Patient denies d ecreased sense of smell , any loss of taste , sore throat. D enies S ore throat. R espiratory: Admits C ough. D enies S hortness of breath at rest. D enies S hortness of breath with exertion. G astrointestinal: Denies D iarrhea. D enies H eartburn. ? M usculoskeletal: Patient denies m uscle aches. P eripheral Vascular: Patient denies r ed and blue toes. * Medical History: * Surgical History: * Hospitalization/Major Diagno stic Procedure: * Medications: T akingZyrTEC Allergy 10 MG Tablet 1 tablet Orally Once a dayHM Vitamin D3 2000 UNIT Capsule 1 capsule Orally Once a dayAdvair Diskus 250-50 MCG/DOSE Aerosol Powder Breath Activated 1 puff Inhalation Twice a dayFluticasone Propionate 50 MCG/ACT Suspension 1 spray in each nostril Nasally Once a dayPARoxetine HCl 10 MG Tablet TAKE 1 TABLET BY MOUTH EVERY DAY IN THE MORNING FOR 30 DAYS SUMAtriptan Succinate 50 MG Tablet take 1 tablet at least 2 hours between doses as needed orally once a day at first sign of migraine 30 days Orally Twice a day as neededCelecoxib 200 MG Capsule TAKE 1 CAPSULE BY MOUTH EVERY DAY WITH FOOD FOR 90 DAYS Albuterol Sulfate 0.63 MG/3ML Nebulization Solution 3 ml as needed Inhalation every 8 hrsTaking ZyrTEC Allergy 10 MG Tablet 1 tablet Orally Once a dayTaking HM Vitamin D3 2000 UNIT Capsule 1 capsule Orally Once a dayTaking Advair Diskus 250-50 MCG/DOSE Aerosol Powder Breath Activated 1 puff Inhalation Twice a dayTaking Fluticasone Propionate 50 MCG/ACT Suspension 1 spray in each nostril Nasally Once a dayTaking PARoxetine HCl 10 MG Tablet TAKE 1 TABLET BY MOUTH EVERY DAY IN THE MORNING FOR 30 DAYS Taking SUMAtriptan Succinate 50 MG Tablet take 1 tablet at least 2 hours between doses as needed orally once a day at first sign of migraine 30 days Orally Twice a day as neededTaking Celecoxib 200 MG Capsule TAKE 1 CAPSULE BY MOUTH EVERY DAY WITH FOOD FOR 90 DAYS Taking Albuterol Sulfate 0.63 MG/3ML Nebulization Solution 3 ml as needed Inhalation every 8 hrsNot-Taking/PRNIbuprofen 800 MG Tablet 1 tablet with food or milk as needed Orally twice a dayOndansetron HCl 4 MG Tablet 1 tablet Orally twice a dayNot-Taking/PRN Ibuprofen 800 MG Tablet 1 tablet with food or milk as needed Orally twice a dayNot-Taking/PRN Ondansetron HCl 4 MG Tablet 1 tablet Orally twice a dayDiscontinuedSudafed PE Sinus Pressure+Pain 5-325 MG Tablet 2 tablets as needed Orally every 6 hrsMeloxicam 15 MG Tablet 1 tablet Orally Once a daytraMADol HCl 50 MG Tablet 1 tablet as needed Orally twce a dayMedication List reviewed and reconciled with the patientDiscontinued Sudafed PE Sinus Pressure+Pain 5-325 MG Tablet 2 tablets as needed Orally every 6 hrsDiscontinued Meloxicam 15 MG Tablet 1 tablet Orally Once a dayDiscontinued traMADol HCl 50 MG Tablet 1 tablet as needed Orally twce a dayMedication List reviewed and reconciled with the patient * Allergies: N .K.D.A.yes[Allergies Verified] Objective: * Vitals: H t: 62. * Examination: G eneral Examination: GENERAL APPEARANCE: a lert, well hydrated, in no distress.? Assessment: * Assessment: 1. M oderate persistent asthma with acute exacerbation - J45.41 (Primary) 2 . H ypertension, unspecified type - I10 needs note for work for 04/18 04/19 04/20 faxed. Plan: * Treatment: 2. H ypertension, unspecified type Notes: nurse came to her house and found her bp to be high. i don't have the reading but all of her bp's in my office have been normal. will recheck at her next visit 3. O thers Refill Ibuprofen Tablet, 800 MG, 1 tablet with food or milk as needed, Orally, twice a day, 30 days, 60 Tablet, Refills 3. Notes: Work note faxed * Procedure Codes: * * Sign off status: Completed true * Provider: Brayan Jefferson MD Date: 0 04/19/2024 Generated for Dave de la garza/Erendira/Martinsmitting on: 05/15/2024 08:52 PM EST History and Physical Notes * HPI (History of Present Illness) Category Sub-Category Detail Notes Category Not es Symptom(s) Telehealth Location of prov ider rendering services:: [address], [address] patientis a 48 yo female video telehealth visit , here as emergency. chest hurts complaining of feeling congsted, with cough and runny nose. . pa from insurance took her bp Location of patient:: at address listed in demographics for today's visit Patient identification confirmed using:: Name, , SSN, Insurance information Telehealth method:: Video co nference where patient is visible to the provider of care Consent:: Patient verbally c onsented to treatment, Patient verbally consented to billing insurance company, Patient informed of any privacy concerns related to method of visit Examination Category Sub-Category Detail Notes Category Not es General Examination GENERAL APPEARANCE: alert, w ell hydrated, in no distress
--- OUTSIDE RECORDS SUMMARY | 2024-05-29 05:40 | XMS_ITS ---
Author Organization Chadwick Jefferson MD Address [address] [place] [phone] Care Team Providers Care Plant Specialist Name Role Phone Chadwick Jefferson Primary Care Provider REASON FOR VISIT ? increaseCelebrex Encounters Encounter Location Date Provider Diagnosis Chadwick Jefferson MD [address] [place] [address] [address] [place], [place] [phone] 05/29/2024 Chadwick Jefferson Plan Of Treatment Next Appt Details Provider Name:Chadwick Gay ier, 06/06/2025 03:00:00 PM, [address] [facility], [address], [place], [place], [phone], Progress Notes * Marivel BIGGSDOB: 1975 (48 yo F)Acc No.[id number]:05/29/2024 Patient: Marivel COOK :1975 A ge:48 Y S ex:Female Address:[address] [place] [address], [phone] * true * Date: Generated for Dalyi holli/Erendira/eTransmitting on: 05/15/2024 08:53 PM EST
--- OUTSIDE RECORDS SUMMARY | 2024-06-29 08:45 | XMS_ITS ---
Author Organization Chadwick Jefferson MD Address [address] [place] [phone] Care Team Providers Care Professor Of History Name Role Phone Chadwick Jefferson Primary Care Provider [phone] Allergies No Known Allergies REASON FOR VISIT sinus and sore throat, Video [phone] Medications Medication SIG (Take, Route, Frequency, Duration) Notes Start Date End Date Status Ibuprofen 800 MG 1 tablet with food o r milk as needed Orally twice a day for 30 days 12/23/2022 Active Fluticasone Propionate 50 MCG/ACT 1 spray in each nostril Nasally Once a day for 30 day(s) 09/03/2022 Active SUMAtriptan Succinate 50 MG take 1 tablet at least 2 hours between doses as needed orally once a day at first sign of migraine 30 days Orally Twice a day as needed for 10 days Active Celecoxib 200 MG TAKE 1 CAPSULE BY [facility] EVERY DAY WITH FOOD FOR 90 DAYS for 90 Active Albuterol Sulfate 0.63 MG/3ML 3 ml as needed Inhalation every 8 hrs for 14 days 04/18/2020 Active Advair Diskus 250-50 MCG/DOSE 1 puff Inhalation Twice a day 06/15/2021 Active ZyrTEC Allergy 10 MG 1 tablet Orally Onc e a day for 30 day(s) Active HM Vitamin D3 2000 UNIT 1 capsule Orally Once a day for 30 day(s) 02/06/2018 Active PARoxetine HCl 10 MG TAKE 1 TABLET BY MO [facility] EVERY DAY IN THE MORNING for 90 Active Ondansetron HCl 4 MG 1 tablet Orally twi ce a day for 5 days 04/29/2022 Not-Taking Doxycycline Hyclate 100 MG 1 capsule Orally Once a day for 10 day(s) 06/29/2024 Active predniSONE 10 MG 1 tablet with food o r milk Orally 4 tabs for 3 days,3tabs for 3 days, 2 tabs for 3 days, and 1 tab for 3 days for 14 days 04/19/2024 Not-Taking Vital Signs Height 62 in 06/29/2024 Weight 160 lbs 06/29/2024 BMI 29.26 kg/m2 06/29/2024 weight is 160 BP not taken n o temp Encounters Encounter Location Date Provider Diagnosis Chadwick Jefferson MD [address] [place] [phone] 06/29/2024 Chadwick Jefferson Sinusitis J32.9 Assessments Encounter Date Diagnosis (ICD Code) Assessment Notes Treatment Notes Treatment Clinical Notes Section Notes 06/29/2024 Sinusitis (ICD-10 - J32.9) patient verbalized understanding of medication and dirctions for use. Plan Of Treatment Medication Medication Name Sig Start Date Stop Date Notes Doxycycline Hyclate 100 MG 1 capsule Ora lly Once a day for 10 day(s) 06/29/2024 Treatment Notes Assessment Notes Sinusitis patient verbalized u nderstanding of medication and dirctions for use. Next Appt Details Provider Name:Chadwick Gay ier, 06/06/2025 03:00:00 PM, [address] [place] [address], Suite [facility], [place], [place], [phone], Progress Notes * GARSIA LEEMarivelDOB: 1975 (48 yo F)Acc No.[id number]:06/29/2024 Patient: Marivel COOK Provider: Brayan Jefferson MD :1975 A ge:48 Y S ex:Female Date:06/29/2024 Address:[address] [place] [address] Subjective: * Chief Complaints: * S inus and sore throatVideo [phone] * HPI: S ymptom(s): Telehealth L ocation of provider rendering services: [address] [facility], Suite [facility], L ocation of patient: a t address listed in demographics for today's visit, P attena identification confirmed using: SASHA Barger ame, T elehealth method: V ideo conference where patient is visible to the provider of care, C onsent: P atient verbally consented to treatment, Patient verbally consented to billing insurance company, Patient informed of any privacy concerns related to method of visit, T otal time spend talking with patient (minutes) 2 5. patientis a 48 yo female vieo telehealth visit, having sinus issues and loss of voice and jaw and throat are bothering her for 3 weeks. * ROS: G eneral/Constitutional: Denies C hills. D enies F atigue. D enies F ever. A dmits H eadache. E NT: Denies E ar pain. A dmits S inus pain. A dmits?Sore throat. R espiratory: Juan Cortez ough. D enies S hortness of breath at rest. D enies S hortness of breath with exertion. G astrointestinal: Juan Driscoll iarrhea. D enies N ausea. * Medical History: * Surgical History: * Hospitalization/Major Diagno stic Procedure: * Medications: T akingZyrTEC Allergy 10 MG Tablet 1 tablet Orally Once a day HM Vitamin D3 2000 UNIT Capsule 1 capsule Orally Once a day Advair Diskus 250-50 MCG/DOSE Aerosol Powder Breath Activated 1 puff Inhalation Twice a day Fluticasone Propionate 50 MCG/ACT Suspension 1 spray in each nostril Nasally Once a day SUMAtriptan Succinate 50 MG Tablet take 1 tablet at least 2 hours between doses as needed orally once a day at first sign of migraine 30 days Orally Twice a day as needed Celecoxib 200 MG Capsule TAKE 1 CAPSULE BY MOUTH EVERY DAY WITH FOOD FOR 90 DAYS Albuterol Sulfate 0.63 MG/3ML Nebulization Solution 3 ml as needed Inhalation every 8 hrs Ibuprofen 800 MG Tablet 1 tablet with food or milk as needed Orally twice a day PARoxetine HCl 10 MG Tablet TAKE 1 TABLET BY MOUTH EVERY DAY IN THE MORNING Taking ZyrTEC Allergy 10 MG Tablet 1 tablet Orally Once a day Taking HM Vitamin D3 2000 UNIT Capsule 1 capsule Orally Once a day Taking Advair Diskus 250-50 MCG/DOSE Aerosol Powder Breath Activated 1 puff Inhalation Twice a day Taking Fluticasone Propionate 50 MCG/ACT Suspension 1 spray in each nostril Nasally Once a day Taking SUMAtriptan Succinate 50 MG Tablet take 1 tablet at least 2 hours between doses as needed orally once a day at first sign of migraine 30 days Orally Twice a day as needed Taking Celecoxib 200 MG Capsule TAKE 1 CAPSULE BY MOUTH EVERY DAY WITH FOOD FOR 90 DAYS Taking Albuterol Sulfate 0.63 MG/3ML Nebulization Solution 3 ml as needed Inhalation every 8 hrs Taking Ibuprofen 800 MG Tablet 1 tablet with food or milk as needed Orally twice a day Taking PARoxetine HCl 10 MG Tablet TAKE 1 TABLET BY MOUTH EVERY DAY IN THE MORNING Not- Taking/PRNpredniSONE 10 MG Tablet 1 tablet with food or milk Orally 4 tabs for 3 days,3tabs for 3 days, 2 tabs for 3 days, and 1 tab for 3 days Ondansetron HCl 4 MG Tablet 1 tablet Orally twice a day Medication List reviewed and reconciled with the patientNot- Taking/PRN predniSONE 10 MG Tablet 1 tablet with food or milk Orally 4 tabs for 3 days,3tabs for 3 days, 2 tabs for 3 days, and 1 tab for 3 days Not-Taking/PRN Ondansetron HCl 4 MG Tablet 1 tablet Orally twice a day Medication List reviewed and reconciled with the patient * Allergies: N .K.D.A.yes[Allergies Verified] Objective: * Vitals: H t: 62, Wt: 160, BMI:29.26, Wt-k.58. weight is 160 BP not taken no temp. * Examination: G eneral Examination: GENERAL APPEARANCE: a lert, well hydrated, in no distress.? Assessment: * Assessment[facility]. [facility].9 (Primary) Plan: * Treatment: * Procedure Codes: * * Sign off status: Completed true * Provider: Brayan Jefferson MD Date: 0 06/29/2024 Generated for Dave de la garza/Erendira/Rohan on: 05/15/2024 08:53 PM EST History and Physical Notes * HPI (History of Present Illness) Category Sub-Category Detail Notes Category Not es Symptom(s) Telehealth [facility]:: [address], [address] patientis a 48 yo female vieo telehealth visit, having sinus issues and loss of voice and jaw and throat are bothering her for 3 weeks Location of patient:: at address listed in demographics for today's visit Patient identification confirmed using:: Name, Telehealth method:: Video co nference where patient is visible to the provider of care Consent:: Patient verbally c onsented to treatment, Patient verbally consented to billing insurance company, Patient informed of any privacy concerns related to method of visit Total time spend talking with patient (m inutes): 25 Examination Category Sub-Category Detail Notes Category Not es General Examination GENERAL APPEARANCE: alert, w ell hydrated, in no distress
--- OUTSIDE RECORDS SUMMARY | 2024-10-11 06:45 | XMS_ITS ---
Author Organization Chadwick Jefferson MD Address [address] [place] [phone] Care Team Providers Care Associate Brand Manager Name Role Phone Chadwick Jefferson Primary Care Provider Allergies No Known Allergies REASON FOR VISIT joint pain all over started 10-10-24, Video [phone] Medications Medication SIG (Take, Route, Frequency, Duration) Notes Start Date End Date Status Ibuprofen 800 MG 1 tablet with food o r milk as needed Orally twice a day for 30 days 12/23/2022 Active PARoxetine HCl 10 MG TAKE 1 TABLET BY [facility] EVERY DAY IN THE MORNING for 90 Active predniSONE 10 MG 1 tablet with food o r milk Orally 4 tabs for 3 days,3tabs for 3 days, 2 tabs for 3 days, and 1 tab for 3 days for 14 days 04/19/2024 Not-Taking Ondansetron HCl 4 MG 1 tablet Orally twi ce a day for 5 days 04/29/2022 Not-Taking Albuterol Sulfate 0.63 MG/3ML 3 ml as needed Inhalation every 8 hrs for 14 days 04/18/2020 Active Advair Diskus 250-50 MCG/DOSE 1 puff Inhalation Twice a day 06/15/2021 Active Fluticasone Propionate 50 MCG/ACT 1 spray in each nostril Nasally Once a day for 30 day(s) 09/03/2022 Active SUMAtriptan Succinate 50 MG take 1 tablet at least 2 hours between doses as needed orally once a day at first sign of migraine 30 days Orally Twice a day as needed for 10 days Active Celecoxib 200 MG TAKE 1 CAPSULE BY [facility] EVERY DAY WITH FOOD FOR 90 DAYS for 90 Active ZyrTEC Allergy 10 MG 1 tablet Orally Onc e a day for 30 day(s) Active Vitamin D3 2000 UNIT 1 capsule Orally Once a day for 30 day(s) 02/06/2018 Active Vital Signs Height 62 in 10/11/2024 Weight 150 lbs 10/11/2024 BMI 27.43 kg/m2 10/11/2024 weight at home is 150 BP not taken and no temp Encounters Encounter Location Date Provider Diagnosis Chadwick Jefferson MD [address] [place] [address] Drive [address] [place] [phone] 10/11/2024 Chadwick Jefferson Arthralgia M25.50 Assessments Encounter Date Diagnosis (ICD Code) Assessment Notes Treatment Notes Treatment Clinical Notes Section Notes 10/11/2024 Arthralgia (ICD-10 - M25.50) PATIENT REQUESTS [place] [facility] Plan Of Treatment Treatment Notes Assessment Notes Arthralgia PATIENT REQUESTS PRIYANKA T ORDER BE FAXED [place] [facility] [facility] Pending Test Test Name Order Date Complete Blood Count Auto Diff 5 Erythrocyte Sedimentation Rate 5 Comprehensive [place]. Panel Fast 5 TESSA Reflex Titer and Pattern 10/11/2024 Rheumatoid Factor 10/11/2024 Next Appt Details Follow Up: 2 Weeks, Reason: Provider Name:Chadwick Gay ier, 06/06/2025 03:00:00 PM, [address] [place] [address], [address], [place], [place], [phone], Progress Notes * Marivel LOPEZDOB: 1975 (49 yo F)Acc No.[id number]:10/11/2024 Patient: Danika SHORTDERONMarivel Provider: Brayan Jefferson MD :1975 A ge:49 Y S ex:Female Date:10/11/2024 Address:[address] [place], [place] [id number] Subjective: * Chief Complaints: * J oint pain all over started 7Video [phone] * HPI: S ymptom(s): Telehealth L ocation of provider rendering services: [address], [address], L ocation of patient: [...] otal time spend talking with patient (minutes) 1 8. patient is a 49 yo female here with complaint of all joints are hurting. has been seen by rn residential.. is short of breath. wants lab work. * ROS: G eneral/Constitutional: Denies C hills. A dmits F atigue. D enies F ever. D enies H eadache. E NT: Denies S ore throat. R espiratory: Denies C ough. D enies S hortness of breath at rest. D enies S hortness of breath with exertion. G astrointestinal: Denies D iarrhea. D enies N ausea. * Medical [...] Tablet 1 tablet Orally twice a day Not-Taking/PRN predniSONE 10 MG Tablet 1 tablet with food or milk Orally 4 tabs for 3 days,3tabs for 3 days, 2 tabs for 3 days, and 1 tab for 3 days Not-Taking/PRN Ondansetron HCl 4 MG Tablet 1 tablet Orally twice a day DiscontinuedDoxycycline Hyclate 100 MG Capsule 1 capsule Orally Once a day Medication List reviewed and reconciled with the patientDiscontinued Doxycycline Hyclate 100 MG Capsule 1 capsule Orally Once a day Medication List reviewed and reconciled with the patient * Allergies: N .K.D.A.yes[Allergies Verified] Objective: * Vitals: H t: 62, Wt: 150, BMI:27.43, Wt-k.04. weight at home is 150 BP not taken and no temp. Assessment: * Assessment: 1. A rthralgia - M25.50 (Primary) Plan: * Treatment: ?LAB: Erythrocyte Sedimentation Rate* Kristin Hpokins 2024 11:57:34 AM EDT > COMING TODAY FOR LABS ?LAB: Comprehensive [place]. Panel Fast* Kristin Hopkins 2024 11:57:34 AM EDT > COMING TODAY FOR LABS ?LAB: TESSA Reflex Titer and Pattern* Kristin Hopkins 2024 11:57:34 AM EDT > COMING TODAY FOR LABS ?LAB: Rheumatoid Factor* Kristin Hopkins 2024 11:57:34 AM EDT > COMING TODAY FOR LABS Notes: PATIENT REQUESTS THAT ORDER BE [place] [facility] [facility]?? * Procedure Codes: * Follow Up: 2 Weeks * * Sign off status: Completed true * Provider: Brayan Jefferson MD Date: 0 10/11/2024 Generated for Dalyi holli/Erendira/eTransmitting on: 1 05/15/2024 08:52 PM EST History and Physical Notes * HPI (History of Present Illness) Category Sub-Category Detail Notes Category Not es Symptom(s) Telehealth Location of [facility] rendering services:: [address], [address] patient is a 49 yo female here with complaint of all joints are hurting. has been seen by rn residential.. is short of breath. wants lab work Location of patient:: at address listed in demographics for today's visit Patient identification confirmed using:: Name, Telehealth method:: Video co nference where patient is visible to the provider of care Consent:: Patient verbally c onsented to treatment, Patient verbally consented to billing insurance company, Patient informed of any privacy concerns related to method of visit Total time spend talking with patient (m inutes): 18
--- OUTSIDE RECORDS SUMMARY | 2024-10-16 05:35 | XMS_ITS ---
Author Organization Chadwick Jefferson MD Address [address] [place] [phone] Care Team Providers Care Intranet Developer Name Role Phone Chadwick Jefferson Primary Care Provider REASON FOR VISIT work note Encounters Encounter Location Date Provider Diagnosis Chadwick Jefferson MD [address] [place] [phone] 10/16/2024 Chadwick Jefferson Plan Of Treatment Next Appt Details Provider Name:Chadwick Gay ier, 06/06/2025 03:00:00 PM, [address], [address], [place], [place], [phone], Progress Notes * Marivel LOPEZDOB: 1975 (49 yo F)Acc No.[id number]:10/16/2024 Patient: Marivel COOK :1975 A ge:49 Y S ex:Female Address:[address] [place] [address], [address] * true * Date: Generated for Dalyi holli/Jaycobg/eTransmitting on: 05/15/2024 08:52 PM EST
--- OUTSIDE RECORDS SUMMARY | 2024-10-25 08:45 | XMS_ITS ---
Author Organization Chadwick Jefferson MD Address [address] [place] [phone] Care Team Providers Care Client Services Account Manager Name Role Phone Chadwick Jefferson Primary Care Provider Allergies No Known Allergies REASON FOR VISIT 2 WK F/U Medications Medication SIG (Take, Route, Frequency, Duration) Notes Start Date End Date Status Ondansetron HCl 4 MG 1 tablet Orally [...] 3 days for 14 days 04/19/2024 Not-Taking PARoxetine HCl 10 MG TAKE 1 TABLET BY [facility] EVERY DAY IN THE MORNING for 90 Active Ibuprofen 800 MG 1 tablet with food o r milk as needed Orally twice a day for 30 days 12/23/2022 Active Advair Diskus 250-50 MCG/DOSE 1 puff Inhalation Twice a day 06/15/2021 Active HM Vitamin D3 2000 UNIT 1 capsule Orally Once a day for 30 day(s) 02/06/2018 Active Celecoxib 200 MG TAKE 1 CAPSULE BY [facility] EVERY DAY WITH FOOD FOR 90 DAYS for 90 Active SUMAtriptan Succinate 50 MG take 1 tablet at least 2 hours between doses as needed orally once a day at first sign of migraine 30 days Orally Twice a day as needed for 10 days Active Fluticasone Propionate 50 MCG/ACT 1 spray in each nostril Nasally Once a day for 30 day(s) 09/03/2022 Active ZyrTEC Allergy 10 MG 1 tablet Orally Onc e a day for 30 day(s) Active Encounters Encounter Location Date Provider Diagnosis Chadwick Jefferson MD [address] [place], [place] [phone] 10/25/2024 Chadwick Jefferson Plan Of Treatment Next Appt Details Provider Name:Chadwick Gay ier, 06/06/2025 03:00:00 PM, [address] [facility], [address], [place], [place], [phone], Progress Notes * Marivel LOPEZDOB: 1975 (49 yo F)Acc No.[id number]:10/25/2024 Progress Notes Patient: Marivel COOK Provider: Brayan Jefferson MD :1975 A ge:49 Y S ex:Female Date:10/25/2024 Address:[address] [place], [place] [phone] Subjective: * Chief Complaints: * 1 . 2 WK F/U. * HPI: S ymptom(s): patient is a 49 yo female here for 2 week follow up visit. * ROS: G eneral/Constitutional: Denies C hills. [...] Tablet 1 tablet Orally twice a day * Allergies: N .K.D.A. Objective: * Vitals: Assessment: Plan: * Treatment: * * The named appointment provid er may or may not be the originator of this progress note, and it is not deemed complete until electronically signed by the appointment provider. Sign off status: Pending * Provider: Brayan Jefferson MD Date: 0 10/25/2024 Generated for Dave de la garza/Erendira/Martinsmitting on: 1 05/15/2024 08:54 PM EST History and Physical Notes * HPI (History of Present Illness) Category Sub-Category Detail Notes Category Not es Symptom(s) patient is a 49 yo female here for 2 week follow up visit
--- OUTSIDE RECORDS SUMMARY | 2024-10-30 04:06 | XMS_ITS ---
Author Organization Chadwick Jefferson MD Address [address] [place] [phone] Care Team Providers Care Type Caster Name Role Phone Chadwick Jefferson Primary Care Provider REASON FOR VISIT ER visit rec'd Encounters Encounter Location Date Provider Diagnosis Chadwick Jefferson MD [address] [place] [address] [address] [place], [place] [phone] 10/30/2024 Chadwick Jefferson Plan Of Treatment Next Appt Details Provider Name:Chadwick Gay ier, 06/06/2025 03:00:00 PM, [address] [facility], [address], [place], [place], [phone], Progress Notes * Marivel LOPEZDOB: 1975 (49 yo F)Acc No.[id number]:10/30/2024 Patient: Marivel COOK :1975 A ge:49 Y S ex:Female Address:[address] [place] [address], [address] * true * Date: Generated for Dalyi holli/Erendira/eTransmitting on: 05/15/2024 08:53 PM EST
--- OUTSIDE RECORDS SUMMARY | 2024-11-01 10:15 | XMS_ITS ---
Author Organization Chadwick Jefferson MD Address [address] [place] [phone] Care Team Providers Care History Professor Name Role Phone Chadwick Jefferson Primary Care Provider Allergies No Known Allergies REASON FOR VISIT 2 week follow up hematuria Medications Medication SIG (Take, Route, Frequency, Duration) Notes Start Date End Date Status predniSONE 10 MG 1 tablet with food [...] 8 hrs for 14 days 04/18/2020 Active Ibuprofen 800 MG 1 tablet with food o r milk as needed Orally twice a day for 30 days 12/23/2022 Active PARoxetine HCl 10 MG TAKE 1 TABLET BY [facility] EVERY DAY IN THE MORNING for 90 Active Dicyclomine HCl 10 MG 1 caps Orally Thre e times a day as needed for 30 days 11/01/2024 Active Advair Diskus 250-50 MCG/DOSE 1 puff [...] MG TAKE 1 CAPSULE BY [facility] EVERY DAY WITH FOOD FOR 90 DAYS for 90 Active ZyrTEC Allergy 10 MG 1 tablet Orally Onc e a day for 30 day(s) Active Ondansetron HCl 4 MG 1 tablet Orally Onc e a day for 30 days 11/01/2024 Active HM Vitamin D3 2000 UNIT 1 capsule Orally Once a day for 30 day(s) 02/06/2018 Active Vital Signs Blood pressure systolic 122 mm Hg 11/02/19 25 Blood pressure diastolic 70 mm Hg 025 Height 62 in 11/01/2024 Weight 160 lbs 11/01/2024 BMI 29.26 kg/m2 11/01/2024 weight is up 10 pounds since 10-11-24 Encounters Encounter Location Date Provider Diagnosis Chadwick Jefferson MD [address] [place] [address] [address] [place] [phone] 11/01/2024 Chadwick Jefferson Hematuria R31.9 and Gastroenteritis K52.9 Assessments Encounter Date Diagnosis (ICD Code) Assessment Notes Treatment Notes Treatment Clinical Notes Section Notes 11/01/2024 Hematuria (ICD-10 - R31.9) ORDER PRINTED AND GIVEN TO PATIENT TO RETURN SPECIMEN, pending lab 11/01/2024 Gastroenteritis (ICD-10 - K52.9) patient verbalized understanding of medication and directions for use Plan Of Treatment Medication Medication Name Sig Start Date Stop Date Notes Dicyclomine HCl 10 MG 1 caps Orally Thre e times a day as needed for 30 days 11/01/2024 Ondansetron HCl 4 MG 1 tablet Orally Onc e a day for 30 days 11/01/2024 Treatment Notes Assessment Notes Hematuria ORDER PRINTED AND GI WAYLON TO PATIENT TO RETURN SPECIMEN, pending lab Gastroenteritis patient verbalized u nderstanding of medication and directions for use Pending Test Test Name Order Date Urinalysis and Microscopic 11/01/2024 Next Appt Details Follow Up: 3 Months, Reason: Provider Name:Chadwick palafox, 06/06/2025 03:00:00 PM, [address] [place] [address], [address], [place], [place], [phone], Progress Notes * Marisabel LOPEZ: 1975 (49 yo F)Acc No.[id number]:11/01/2024 Patient: Marivel COOK Provider: Brayan Jefferson MD :1975 A ge:49 Y S ex:Female Date:11/01/2024 Address:[address] [place], [place] [address] [facility] Subjective: * Chief Complaints: * 1 . 2 week follow up hematuria. * HPI: S ymptom(s): patient is a 49 yo female here for 2 week follow up visit/ here for follow up of er. had abdominal pain joint pain. had scans. * ROS: G eneral/Constitutional: Denies C hills. D enies F atigue. D enies F ever. D enies H eadache. E NT: Denies S ore throat. R espiratory: Denies C ough. D enies S hortness of breath at rest. D enies S hortness of breath with exertion. G astrointestinal: Denies A bdominal pain. A dmits D iarrhea. A dmits N ausea. * Medical History: H ysterectomy [...] Vitals: H t: 62, Wt: 160, BMI:29.26, BP:122/70, Wt-k.58. weight is up 10 pounds since 10-11-24. * Examination: G eneral Examination: GENERAL APPEARANCE: a lert, well hydrated, in no distress.? HEAD: n ormocephalic. SKIN: g ood turgor. HEART: n o murmurs, rubs, gallops, regular rate and rhythm.? LUNGS: n o wheezes, rales, rhonchi, good air movement, clear to auscultation bilaterally. ABDOMEN: s oft, nontender, nondistended. ? Assessment: * Assessment: 1. H ematuria - R31.9 (Primary) 2 . G astroenteritis - K52.9 ? Plan: * Treatment: 2. G astroenteritis Start Ondansetron HCl Tablet, 4 MG, 1 tablet, Orally, Once a day, 30 days, 30, Refills 3; S tart Dicyclomine HCl Capsule, 10 MG, 1 caps, Orally, Three times a day as needed, 30 days, 60, Refills 3. Notes: patient verbalized understanding of medication and directions for use * Follow Up: 3 Months * * The named appointment provid er may or may not be the originator of this progress note, and it is not deemed complete until electronically signed by the appointment provider. Sign off status: Pending * Provider: Brayan Jefferson MD Date: 0 11/01/2024 Generated for Dave de la garza/Erendira/Martinsmitting on: 05/15/2024 08:51 PM EST History and Physical Notes * HPI (History of Present Illness) Category Sub-Category Detail Notes Category Not es Symptom(s) patient is a 49 yo female here for 2 week follow up visit/ here for follow up of er. had abdominal pain joint pain. had scans Examination Category Sub-Category Detail Notes Category Not es General Examination GENERAL APPEARANCE: alert, w ell hydrated, in no distress HEAD: normocephalic HEART: no murmurs, rubs, ga llops, regular rate and rhythm LUNGS: no wheezes, rales, r honchi, good air movement, clear to auscultation bilaterally ABDOMEN: soft, nontender, non distended SKIN: good turgor
--- OUTSIDE RECORDS SUMMARY | 2025-02-01 11:45 | XMS_ITS ---
Author Organization Chadwick Jefferson MD Address [address] [place] [phone] Care Team Providers Care Deputy Insurance Commissioner Name Role Phone Chadwick Jefferson Primary Care Provider Allergies No Known Allergies REASON FOR VISIT 3 MO F/U Medications Medication SIG (Take, Route, Frequency, Duration) Notes Start Date End Date Status Celecoxib 200 MG TAKE 1 CAPSULE BY [facility] EVERY DAY WITH FOOD for 90 Active Dicyclomine HCl 10 MG 1 caps Orally Thre e times a day as needed for 30 days 11/01/2024 Active Ondansetron HCl 4 MG 1 tablet Orally Onc e a day for 30 days 11/01/2024 Active Ondansetron HCl 4 MG 1 tablet Orally twi ce a day for 5 days 04/29/2022 Not-Taking predniSONE 10 MG 1 tablet with food o r milk Orally 4 tabs for 3 days,3tabs for 3 days, 2 tabs for 3 days, and 1 tab for 3 days for 14 days 04/19/2024 Not-Taking Fluticasone Propionate 50 MCG/ACT 1 spray in each nostril Nasally Once a day for 30 day(s) 09/03/2022 Active PARoxetine HCl 10 MG TAKE 1 TABLET BY [facility] EVERY DAY IN THE MORNING for 90 Active Ibuprofen 800 MG 1 tablet with food o r milk as needed Orally twice a day for 30 days 12/23/2022 Active Albuterol Sulfate 0.63 MG/3ML 3 ml as needed Inhalation every 8 hrs for 14 days 04/18/2020 Active SUMAtriptan Succinate 50 MG take 1 tablet at least 2 hours between doses as needed orally once a day at first sign of migraine 30 days Orally Twice a day as needed for 10 days Active Advair Diskus 250-50 MCG/DOSE 1 puff Inhalation Twice a day 06/15/2021 Active HM Vitamin D3 2000 UNIT 1 capsule Orally Once a day for 30 day(s) 02/06/2018 Active ZyrTEC Allergy 10 MG 1 tablet Orally Onc e a day for 30 day(s) Active Encounters Encounter Location Date Provider Diagnosis Chadwick Jefferson MD [address] [place], [place] [phone] 02/01/2025 Chadwick Jefferson Plan Of Treatment Next Appt Details Provider Name:Chadwick Danika Gay ier, 06/06/2025 03:00:00 PM, [address] [facility], [address], [place], [place], [phone], Progress Notes * Marivel LOPEZDOB: 1975 (49 yo F)Acc No.[id number]:02/01/2025 Progress Notes Patient: Danika CHAVARRIAMarivel JACKSON Provider: Brayan Jefferson MD :1975 A ge:49 Y S ex:Female Date:02/01/2025 Address:[address] [place], [place] [phone] Subjective: * Chief Complaints: * 1 . 3 MO F/U. * HPI: S ymptom(s): patient is a 49 yo female here for 3 month follow up visit. * ROS: G eneral/Constitutional: [...] Twice a day as needed , Taking Albuterol Sulfate 0.63 MG/3ML Nebulization Solution 3 ml as needed Inhalation every 8 hrs , Taking Ibuprofen 800 MG Tablet 1 tablet with food or milk as needed Orally twice a day , Taking PARoxetine HCl 10 MG Tablet TAKE 1 TABLET BY MOUTH EVERY DAY IN THE MORNING , Taking Ondansetron HCl 4 MG Tablet 1 tablet Orally Once a day , Taking Dicyclomine HCl 10 MG Capsule 1 caps Orally Three times a day as needed , Taking Celecoxib 200 MG Capsule TAKE 1 CAPSULE BY MOUTH EVERY DAY WITH FOOD , Not-Taking/PRN predniSONE 10 MG Tablet 1 [...] Pending * Provider: Brayan Jefferson MD Date: 1 Generated for Dave de la garza/Erendira/Destiniitting on: 05/15/2024 08:53 PM EST History and Physical Notes * HPI (History of Present Illness) Category Sub-Category Detail Notes Category Not es Symptom(s) patient is a 49 yo female here for 3 month follow up visit
--- OUTSIDE RECORDS SUMMARY | 2025-02-04 10:00 | XMS_ITS ---
Author Organization Chadwick Jefferson MD Address [address] [place] [phone] Care Team Providers Care First Mate Name Role Phone Chadwick Jefferson Primary Care Provider Allergies No Known Allergies REASON FOR VISIT sinus pressure, headaches fever, body aches. Tested for Covid this AM negative, video [phone], Went to Urgent Care 01-31-25 was put on Prednisone and cough medicine, needs a note for work Medications Medication SIG (Take, Route, Frequency, Duration) [...] 3 days for 14 days 04/19/2024 Not-Taking Celecoxib 200 MG TAKE 1 CAPSULE BY [facility] EVERY DAY WITH FOOD for 90 Not-Taking Dicyclomine HCl 10 MG 1 caps Orally Thre e times a day as needed for 30 days 11/01/2024 Active Ondansetron HCl 4 MG 1 tablet Orally Onc e a day for 30 days 11/01/2024 Active Albuterol Sulfate 0.63 MG/3ML 3 ml [...] e a day for 30 day(s) Active Gabapentin 100 MG 1 capsule at bedtime Orally Once a day Active predniSONE 10 MG 1 tablet with food o r milk Orally Once a day Active Zithromax Z-Amso 250 MG 2 tablet on the f irst day, then 1 tablet daily for 4 days Orally Once a day for 5 day(s) 02/04/2025 Active Vital Signs Height 62 in 02/04/2025 Weight 160 lbs 02/04/2025 BMI 29.26 kg/m2 02/04/2025 weight is 160 at home BP not taken at home no temp but feels warm Encounters Encounter Location Date Provider Diagnosis Chadwick Jefferson MD [address] [place] [address] Drive [address] [place], [place] [phone] 02/04/2025 Chadwick Jefferson Sinusitis J32.9 Assessments Encounter Date Diagnosis (ICD Code) Assessment Notes Treatment Notes Treatment Clinical Notes Section Notes 02/04/2025 Sinusitis (ICD-10 - J32.9) patient verbalized understandng of medication and directions for use Plan Of Treatment Medication Medication Name Sig Start Date Stop Date Notes Zithromax Z-Amos 250 MG 2 tablet on the f irst day, then 1 tablet daily for 4 days Orally Once a day for 5 day(s) 02/04/2025 Treatment Notes Assessment Notes Sinusitis patient verbalized u nderstandng of medication and directions for use Next Appt Details Provider Name:Chadwick palafox, 06/06/2025 03:00:00 PM, [address] [place] [address] Drive, [address], [place], [place], [phone], Progress Notes * Marisabel LOPEZ: 1975 (49 yo F)Acc No.[id number]:02/04/2025 Patient: Marivel COOK Provider: Brayan Jefferson MD :1975 A ge:49 Y S ex:Female Date:02/04/2025 Address:[address] [place] [address], [place] [address] Subjective: * Chief Complaints: * s inus pressure, headaches fever, body aches. Tested for Covid this AM negativeVideo [phone] to Urgent Care 01-31-25 was put on Prednisone and cough medicineNeeds a note for work * HPI: S ymptom(s): devante is a 49 yo female video telehealth visit having a lot of pain. is put on gabapentin. going back to see her in may. had been on prednisone as the cold is affecting her asthma and arthritis. sinuses are bothering her, had been sick for a few days and then got better. Telehealth L ocation of provider rendering services: [...] time spend talking with patient (minutes) 2 0. * ROS: G eneral/Constitutional: Admits C hills. A dmits F atigue. A dmits F ever. A dmits H eadache. E NT: Denies S ore throat. R espiratory: Admits C ough. D enies S hortness of breath at rest. A dmits S hortness of breath with exertion. D enies S putum production. A dmits W heezing. G astrointestinal: Denies D iarrhea. D enies N ausea. * Medical History: * Surgical History: * Hospitalization/Major Diagno stic Procedure: * Medications: T akingpredniSONE 10 MG Tablet 1 tablet with food or milk Orally Once a day Gabapentin 100 MG Capsule 1 capsule at bedtime Orally Once a day ZyrTEC Allergy 10 MG Tablet 1 tablet [...] days Orally Twice a day as needed Albuterol Sulfate 0.63 MG/3ML Nebulization Solution 3 ml as needed Inhalation every 8 hrs Ibuprofen 800 MG Tablet 1 tablet with food or milk as needed Orally twice a day PARoxetine HCl 10 MG Tablet TAKE 1 TABLET BY MOUTH EVERY DAY IN THE MORNING Ondansetron HCl 4 MG Tablet 1 tablet Orally Once a day Dicyclomine HCl 10 MG Capsule 1 caps Orally Three times a day as needed Taking predniSONE 10 MG Tablet 1 tablet with food or milk Orally Once a day Taking Gabapentin 100 MG Capsule 1 capsule at bedtime Orally Once a day Taking ZyrTEC Allergy 10 MG Tablet 1 [...] Orally Twice a day as needed Taking Albuterol Sulfate 0.63 MG/3ML Nebulization Solution 3 ml as needed Inhalation every 8 hrs Taking Ibuprofen 800 MG Tablet 1 tablet with food or milk as needed Orally twice a day Taking PARoxetine HCl 10 MG Tablet TAKE 1 TABLET BY MOUTH EVERY DAY IN THE MORNING Taking Ondansetron HCl 4 MG Tablet 1 tablet Orally Once a day Taking Dicyclomine HCl 10 MG Capsule 1 caps Orally Three times a day as needed Not-Taking/PRNCelecoxib 200 MG Capsule TAKE 1 CAPSULE BY MOUTH EVERY DAY WITH FOOD predniSONE 10 MG Tablet 1 tablet with food or milk Orally 4 tabs for 3 days,3tabs for 3 days, 2 tabs for 3 days, and 1 tab for 3 days Ondansetron HCl 4 MG Tablet 1 tablet Orally twice a day Medication List reviewed and reconciled with the patientNot-Taking/PRN Celecoxib 200 MG Capsule TAKE 1 CAPSULE BY MOUTH EVERY DAY WITH FOOD Not-Taking/PRN predniSONE 10 MG Tablet 1 tablet [...] Wt: 160, BMI:29.26, Wt-k.58. weight is 160 at home B P not taken at home no temp but feels warm. * Examination: G eneral Examination: GENERAL APPEARANCE: a lert, well hydrated, in no distress.? Assessment: * Assessment: 1. S vinicius - J32.9 (Primary) Plan: * Treatment: * Procedure Codes: * * Sign off status: Completed true * Provider: Brayan Jefferson MD Date: 1 Generated for Dave de la garza/Erendira/Destiniitting on: 05/15/2024 08:53 PM EST History and Physical Notes * HPI (History of Present Illness) Category Sub-Category Detail Notes Category Not es Symptom(s) Telehealth Location of [facility] rendering services:: [address] [place] [address], [address] Location of patient:: at address listed in demographics for today's visit Patient identification confirmed using:: Name, Telehealth method:: Video co nference where patient is visible to the provider of care Consent:: Patient verbally c onsented to treatment, Patient verbally consented to billing insurance company, Patient informed of any privacy concerns related to method of visit Total time spend talking with patient (m inutes): 20 Examination Category Sub-Category Detail Notes Category Not es General Examination GENERAL APPEARANCE: alert, w ell hydrated, in no distress
[2025-03-14 15:00] VITALS: BP 140/74; PULSE 56; BMI 27.6
--- NOTE | 2025-03-14 15:00 | MHC.OFFVIS ---
Vital Signs 03/14/25 15:00 Height 5 ft 3 in Weight 156 lb BMI 27.6 BP 140/74 H Blood Pressure Location Lt brachial Position Sitting Pulse 56 Intake Visit Reasons: Med refill PT N/S last 2 appt Intake Note: Marivel returns in follow up of GERD. CC: Patient reports doing well as long as she takes her medications. [employer] Equipment Technician Required: No Allergies No Known Allergies Allergy (Verified 01/17/25 15:37) HPI HPI Med refill PT N/S last 2 appt: Details: Assessment & Plan (1) GERD (gastroesophageal reflux disease): Code(s): K21.9 - Gastro-esophageal reflux disease without esophagitis (2) Left sided sciatica: Code(s): M54.32 - Sciatica, left side (3) LLQ abdominal pain: Code(s): R10.32 - Left lower quadrant pain Plan Patient has been lost to follow-up since 10/2022. She has been having more severe LLQ cramping, she feels that the bentyl helps a little bit. I want her to increase to 2 pills qhs and qam to see if this helps better. This has been a problem since her fallopian tube removal. She would like an US and I will order one, but this may be cramping because of a shift in the organs. She also has worsening sx in the past before my period. BUT she also has low back problems with left sided sciatica, so this could be OA or DJD mediated. She also continues on her pantoprazole qam and famotidine qhs. ROV 6 mos. Orders: Orders US pelvic complete Today R10.32 - Left lower quadrant pain Medications: Refilled famotidine 40 mg PO BEDTIME 90 tabs 2RF pantoprazole 40 mg PO DAILY 90 tabs 2RF K21.9 - Gastro-esophageal reflux disease without esophagitis, R10.13 - Epigastric pain ULTRASOUND OF THE PELVIS Not obtained TODAY'S VISIT Patient has been lost to follow-up since 06/2023 [facility] Surgical History Status post surgical removal of both fallopian tubes History of esophagogastroduodenoscopy (EGD) Family History Family/Other Breast cancer Social History Alcohol intake: never Patient Tobacco Use Status: Never used Tobacco Current occupational status: employed 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 Review of Systems Const Denies fatigue, Denies fever(s), Denies night sweats, Denies poor appetite and Denies weight loss ENT Reports Normal hearing present, Denies dental pain, Denies dysphagia, Denies hearing loss, Denies mouth pain, Denies odynophagia, Denies throat swelling, Denies tongue swelling and Reports other (Dentition adequate) Card Reports no additional complaints Resp Reports no additional complaints GI Details: Denies abdominal pain, Denies melena, Denies bloating, Denies hematochezia, Denies constipation, Denies GI cramping, Denies dysphagia, Denies excessive flatus, Denies early satiety, Reports heartburn, Denies diarrhea, Denies nausea, Denies odynophagia, Denies vomiting and Denies hematemesis Skin/Breast Denies pruritus, Denies lesions, Denies rash and Denies jaundice Neuro Reports Normal hearing present and Denies Abnormal speech present Endo Denies fatigue Aller/Immun Denies throat swelling and Denies tongue swelling Physical Exam Vital Signs: Last Vital Signs Pulse 56 03/14/25 15:00 BP 140/74 H 03/14/25 15:00 BMI result Body Mass Index 27.6 Const General: cooperative, no acute distress, well developed and well groomed Nutritional Appearance: average body habitus and well nourished Orientation/consciousness: oriented to person, oriented to place and oriented to time Limitations: No language barrier HEENT Head: Yes normocephalic and Yes atraumatic Eyes General: appearance normal, both eyes and all related structures Pupils: Equal, round and reactive pupils present Neck Neck: Yes normal visual inspection and Yes no lymphadenopathy Thyroid: Thyroid normal Resp Effort & Inspection: normal respiratory effort and able to speak in complete sentences Auscultation: clear to auscultation bilaterally Cardio Rate: regular rate Rhythm: regular rhythm Heart sounds: Normal, physiologic split S2 sound present Peripheral pulses: radial pulses present and posterior tibial pulses present GI Inspection: No distended and No Abdominal panniculus present Palpation (GI): Soft to palpation, nontender, no guarding, not rigid and No hepatosplenomegaly present Percussion: Yes normal to percussion Auscultation: normal bowel sounds Rectal Exam - Female: deferred Skin General skin exam: no rashes or lesions noted, turgor normal, skin not dry, no jaundice, No spider nevi and no striae Rashes: no rashes Nails: normal Neuro General: oriented to person, oriented to place and oriented to time Cranial nerves: Yes Equal, round and reactive pupils present and Yes Normal hearing present Speech: No Abnormal speech present Extrem General: Yes normal to inspection, No clubbing, No cyanosis and No edema Psych Appearance: grossly normal and well kempt Mental Status: mental status grossly normal Speech and movement: Normal speech and movement present Affect: normal affect Attitude: cooperative Thought process: Normal thought process present and not confabulating Thought content: Normal thought content present Insight: Good insight present (Psych) Judgement: Good judgement present (Psych) Results Reviewed Results Reviewed: Laboratory Tests 10/11/24 13:24 WBC 6.4 Hgb 12.6 Hct 36.5 L MCV 85.5 MCH 29.5 Plt Count 356 Estimated GFR > 60 Total Bilirubin 0.4 AST 17 ALT 14 Alkaline Phosphatase 98 Assessment & Plan Assessment & Plan (1) GERD (gastroesophageal reflux disease): Code(s): K21.9 - Gastro-esophageal reflux disease without esophagitis Category: Medical (2) Pre-op examination: Code(s): Z01.818 - Encounter for other preprocedural examination Category: Medical Plan pantoprazole qam and famotidine qhs. She continues to do well in control of her GERD on her pantoprazole and famotidine. I let her know that she is of age for screening colonoscopy and she is agreeable. There are no prior problems with anesthesia or sedation. She has asthma that is well controlled and she denies any cardiac problems. There are no infectious disease problems. There is no known family history of colon cancer or polyps. Return office visit in 6 months Orders: Referrals GI Procedure Notification Z01.818 - Encounter for other preprocedural examination Medications: New sodium,potassium,mag sulfates 17.5-3.13-1.6 gram (Suprep Bowel Prep Kit) 480 mL orally; FOR COLONOSCOPY PREP 354 mL 0RF pantoprazole 40 mg PO DAILY 30 tabs 6RF K21.9 - Gastro-esophageal reflux disease without esophagitis, Z01.818 - Encounter for other preprocedural examination famotidine 40 mg PO BEDTIME 30 tabs 6RF Coding Level of Care Code Est Pt Level 4 (49785) Diagnoses GERD (gastroesophageal reflux disease) K21.9 Pre-op examination Z01.818
--- OUTSIDE RECORDS SUMMARY | 2025-03-14 20:54 | XMS_ITS | Encounter Summary ---
Author Organization [facility] Address [address] [place] [id number] Phone Care Team Providers Care Order Processing Clerk Name Role Phone Chadwick Jefferson MD Primary Care Provider Encounter Details Date Type Department Care Team (Late st Contact Info) Description 10/29/2024 Procedure Pass [facility], Ct Scan - [address] [address] Social History Tobacco Use Types Packs/Day Years [...] 3:47 PM EDT Madeleine Vasquez, JAMES * [place] Suicide Severity Rating Scale (Screener/Recent Self-Report) Question [...] documented as of this encounter Care Teams Order Processing Clerk Relationship Specialty Start Date End Date Chadwick Jefferson MD [address] [place] [address] [place] [address] PCP - General Internal Medicine 11/25/23 documented as of this encounter Additional Source Comments The information contained in this document represents components of the legal health record. It is not the complete legal health record.[facility]
--- OUTSIDE RECORDS SUMMARY | 2025-03-14 20:54 | XMS_ITS | Patient Health Record ---
Author Organization Chadwick Jefferson MD Address [address] [place], [place] [id number] Care Team Providers Care Mobile Mechanic Name Role Phone Chadwick Jefferson Primary Care Provider [phone] Allergies No Known Allergies Results Component Value Reference Range Notes Complete Blood Count Auto Di ff Reviewed date:10/15/2024 12:49:01 PM Interpretation: Performing Lab:[facility], [address] [place] [phone] Notes/Report: White Blood Count 6.4 4.8-10.8 X10*3/uL [...] te Reviewed date:10/15/2024 12:48:13 PM Interpretation: Performing Lab:[facility], [address] [place] [phone] Notes/Report: Erythrocyte Sedimentation Rate 25 0-20 MM/HR Patients with polycythemia and many hemoglobin abnormalities may have depressed sed rates whereas patients with anemia may have elevated sed rates. Comprehensive Amidon. Panel Fa Reviewed date:10/15/2024 12:48:38 PM Interpretation: Performing Lab:[facility], [address] [place] [phone] Notes/Report: Sodium 139 135-145 mmol/L Potassium 3.9 [...] Pattern Reviewed date:10/25/2024 01:27:45 PM Interpretation: Performing Lab:[address] [phone] Notes/Report: Anti Nuclear Antibody Screen POSITIVE NEGATIVE TESSA IFA is a first line screen for detecting the presence of up to approximately 150 autoantibodies in various autoimmune diseases. A positive TESSA IFA result is suggestive of autoimmune disease and reflexes to titer and pattern. Further laboratory testing may be considered if clinically indicated. For additional information, please refer to http://education.[employer]/faq/ TUB022 (This link is being provided for informational/ educational purposes only.) Anti Nuclear Antibody Titer 1:160 Reference Range <1:40 Negative 1:40-1:80 Low Antibody Level >1:80 Elevated Antibody Level Anti Nuclear Antibody Pattern Nuclear, Nucleolar Nucleolar pattern is associated with systemic sclerosis (scleroderma), systemic sclerosis/polymyositi s overlap and Sjogren's syndrome. AC-8,9,10: Nucleolar International Consensus on TESSA Patterns (https://doi.org/10.1 515/lkmi-3824-8662) TESSA Titer 2 1:80 A low level [...] Speckled International Consensus on TESSA Patterns (https://doi.org/10.1 515/eykk-8906-9492) THIS TEST WAS PERFORMED AT: [facility] [address] [place] [phone] BRODY ZURITA MD TESSA Titer 3 TNP TESSA Pattern 3 TNP Rheumatoid Factor Reviewed date:10/15/2024 12:48:21 PM Interpretation: Performing Lab:[facility], [address] [place] [phone] Notes/Report: Rheumatoid Factor < 13.0 <15.0 IU/mL Urinalysis and Microscopic Reviewed date:11/04/2024 06:48:39 PM Interpretation: Performing Lab:[facility], [address] [place] [phone] Notes/Report: Color Urine Yellow Appearance Urine Clear PH 6.0 5.0-9.0 Glucose Urine UA Negative Negative mg/dL Urine Blood Negative Negative Specific Marion - Urine 1.025 1.005-1.025 Urine Protein Negative [...] date:01/22/2025 12:36:02 PM Interpretation: Performing Lab: Notes/Report: [address] [address] XRay Report Signed Patient: Marivel Sandoval MR#: [id number] 82 : 1975 Acct:[id number] Age/Sex: 49 / F ADM Date: 01/21/25 Loc: [facility] Attending Dr: Beth Bentley MD Ordering Physician: Beth Bentley MD Date of Service: 01/21/25 Procedure(s): XR cervical spine 4V Accession Number(s): [id number] cc: Beth Bentley MD; Chadwick Jefferson MD [...] 01/21/25 1054 DD/ 1053 TD/TT: 01/21/25 1053 [employer]: [address] [address] XRay Report Signed Patient: Brad Sandoval MR#: [id number] 82 : 1975 Acct:[id number] Age/Sex: 49 / F ADM Date: 01/21/25 Loc: HO.XRAY Attending Dr: Iron Bentley MD Ordering Physician: Beth Bentley MD Date of Service: 01/21/25 Procedure(s): XR cervical spine 4V Accession Number(s): [id number] cc: Beth Bentley MD ; Chadwick Jefferson [...] 01/21/25 1054 DD/ 1053 TD/TT: 01/21/25 1053 [employer]: XR ankle RT min 3V Reviewed date:02/01/2025 12:29:44 PM Interpretation: Performing Lab: Notes/Report: [address] [address] XRay Report Signed Patient: Marivel Sandoval MR#: [id number] [birth year] : 1975 Acct:[id number] Age/Sex: 49 / F ADM Date: 01/21/25 Loc: HO.XRAY Attending Dr: Beth Bentley MD Ordering Physician: Beth Bentley MD Date of Service: 01/21/25 Procedure(s): XR ankle RT min 3V Accession Number(s): [id number] cc: Beth Bentley MD; Chadwick Jefferson MD Reason for Exam: M15.9 - Polyosteoarthritis, unspecified CLINICAL HISTORY: M15.9 - Polyosteoarthritis, unspecified 3 view right ankle Comparison: None provided Findings: No acute fractures or dislocations. No significant loss of joint space, osteophytes, or erosions. No ankle effusion. No radiopaque foreign body. IMPRESSION: 1. No acute findings. This document has been electronically signed by: Dary Macias MD on 01/21/2025 16:38:42 Dictated By: Dary Macias MD Signed By: 01/30/25 1420 DD/ 1638 TD/TT: 01/21/258 [employer]: [place] [address] XRay Report Signed Patient: Brad Sandoval MR#: [id number] 82 : 1975 Acct:[id number] Age/Sex: 49 / F ADM Date: 01/21/25 Loc: HO.XRAY Attending Dr: Iron Bentley MD Ordering Physician: Beth Bentley MD Date of Service: 01/21/25 Procedure(s): XR ank le RT min 3V Accession Number(s): [id number] cc: Beth Bentley MD ; Chadwick Jefferson MD Reason for Exam: M15 .9 - Polyosteoarthritis, unspecified CLINICAL HISTORY: M1 5.9 - Polyosteoarthritis, unspecified 3 view right ankle Comparison: None provided Findings: No acute fractures o r dislocations. No significant loss of joint space, osteophytes, or erosions. No ankle effusion. No radiopaque foreig n body. IMPRESSION: 1. No acute findings. This document has be en electronically signed by: Dary Macias MD on 01/21/2025 16:38:42 Dictated By: Dary Macias MD Signed By: 01/30/25 1420 DD/ 1638 TD/TT: 01/21/25 1638 [employer]: XR lumbar spine 4V min Reviewed date:01/22/2025 12:35:26 PM Interpretation: Performing Lab: Notes/Report: [address] [address] XRay Report Signed Patient: Marivel Sandoval MR#: [id number] [birth year] : 1975 Acct:[id number] Age/Sex: 49 / F ADM Date: 01/21/25 Loc: HO.XRAY Attending Dr: Beth Bentley MD Ordering Physician: Beth Bentley MD Date of Service: 01/21/25 Procedure(s): XR lumbar spine 4V min Accession Number(s): [id number] cc: Beth Bentley MD; Chadwick Jefferson MD [...] 01/21/25 1059 DD/ 1058 TD/TT: 01/21/25 1058 [employer]: [address] [address] XRay Report Signed Patient: Brad Sandoval MR#: [id number] [birth year] : 1975 Acct:[id number] Age/Sex: 49 / F ADM Date: 01/21/25 Loc: HOJeremyXRAY Attending Dr: Iron Bentley MD Ordering Physician: Beth Bentley MD Date of Service: 01/21/25 Procedure(s): XR lum bar spine 4V min Accession Number(s): [id number] cc: Beth Bentley MD ; Chadwick Jefferson [...] 01/21/25 1059 DD/ 1058 TD/TT: 01/21/25 1058 [employer]: XR ankle LT min 3V Reviewed date:02/01/2025 12:29:24 PM Interpretation: Performing Lab: Notes/Report: [address] [address] XRay Report Signed Patient: Marivel Sandoval MR#: [id number] [birth year] : 1975 Acct:[id number] Age/Sex: 49 / F ADM Date: 01/24/25 Loc: [facility] Attending Dr: Beth Bentley MD Ordering Physician: Beth Bentley MD Date of Service: 01/24/25 Procedure(s): XR ankle LT min 3V Accession Number(s): [id number] cc: Beth Bentley MD; Chadwick Jefferson MD Reason for Exam: M15.9 - Polyosteoarthritis, unspecified EXAMINATION: XR ANKLE 3 OR MORE VIEWS LEFT HISTORY: M15.9 - Polyosteoarthritis, unspecified COMPARISON: There are no prior studies available for comparison. FINDINGS: Three views of the left ankle are submitted. Osseous mineralization is normal. There is no fracture or dislocation. The joint spaces are preserved. The soft tissues are unremarkable. XR/XR ankle LT min 3V IMPRESSION: Unremarkable examination of the left ankle. Electronically signed by: Lincoln Espinoza MD 01/30/2025 02:14 PM EDT RP Dictated By: Lincoln Espinoza MD Signed By: <Electronically signed by Lincoln Espinoza MD in OV> 01/30/25 1414 DD/ 1430 TD/TT: 01/24/25 1440 [employer]: [place] [address] XRay Report Signed Patient: Brad Sandoval MR#: [id number] 82 : 1975 Acct:[id number] Age/Sex: 49 / F ADM Date: 01/24/25 Loc: HO.XRAY Attending Dr: Iron Bentley MD Ordering Physician: Beth Bentley MD Date of Service: 01/24/25 Procedure(s): XR ank le LT min 3V Accession Number(s): [id number] cc: Beth Bentley MD ; Chadwick Jefferson MD Reason for Exam: M15 .9 - Polyosteoarthritis, unspecified EXAMINATION: XR ANKL E 3 OR MORE VIEWS LEFT HISTORY: M15.9 - Polyosteoarthritis, unspecified COMPARISON: There ar e no prior studies available for comparison. FINDINGS: Three views of the l eft ankle are submitted. Osseous mineralization is normal. There is no fracture or dislocation. The joint spaces are preserved. The soft tissues are unremarkable. X R/XR ankle LT min 3V IMPRESSION: Unremarkable examina tion of the left ankle. Electronically alexey d by: Lincoln Espinoza MD 01/30/2025 02:14 PM EDT RP Dictated By: Lincoln Espinoza MD Signed By: <Electronically signed by Lincoln Espinoza MD in OV> 01/30/25 1414 DD/ 1430 TD/TT: 01/24/25 1440 [employer]: Reason For Referral Reason TESSA positive Diagnosis 1 TESSA positive (R76.8) Referral Organization Chadwick Jefferson MD Referring Provider First Name Chadwick Referring Provider Last Name Ronny Referring Provider Speciality Internal M edicine Referred Provider [facility] Referred Provider Specialty Rheumatology General Notes Destiny Yara 0 10/25/2024 01:28:14 PM >info faxed, Yara Dixon 10/26/2024 10:07:49 AM > patient is aware of her appt Referral Priority Routine Referral Appointment Date 01/17/2025 Medications Medication SIG (Take, Route, Frequency, Duration) Notes Start Date End Date Status Albuterol Sulfate 0.63 MG/3ML 3 ml as needed Inhalation every 8 hrs for 14 days 04/18/2020 Active Zithromax Z-Amos 250 MG 2 tablet on the irst day, then 1 tablet daily for 4 days Orally Once a day for 5 day(s) 02/04/2025 Active SUMAtriptan Succinate 50 MG take 1 [...] a day for 30 day(s) 02/06/2018 Active Ondansetron HCl 4 MG 1 tablet Orally twi ce a day for 5 days 04/29/2022 Not-Taking ZyrTEC Allergy 10 MG 1 tablet Orally Onc e a day for 30 day(s) Active predniSONE 10 MG 1 tablet with food o r milk Orally 4 tabs for 3 days,3tabs for 3 days, 2 tabs for 3 days, and 1 tab for 3 days for 14 days 04/19/2024 Not-Taking Celecoxib 200 MG TAKE 1 CAPSULE BY [facility] EVERY DAY WITH FOOD for 90 Not-Taking Gabapentin 100 MG 1 capsule at bedtime Orally Once a day Active predniSONE 10 MG 1 tablet with food o r milk Orally Once a day Active Dicyclomine HCl 10 MG 1 caps Orally Thre e times a day as needed for 30 days 11/01/2024 Active Ondansetron HCl 4 MG 1 tablet Orally Onc e a day for 30 days 11/01/2024 Active PARoxetine HCl 10 MG TAKE 1 TABLET BY [facility] EVERY DAY IN THE MORNING for 90 Active Ibuprofen 800 MG TAKE 1 TABLET BY IMAN TH TWICE A DAY WITH FOOD OR MILK NEEDED FOR 30 DAYS for 30 Active Immunizations Vaccine Route Administration Date Status [...] Problem Status W/U Status Risk Notes Problem 86818643 Vitamin D deficiency (E55.9) Active confirmed Problem Anxiety (41374978) Anxiety (F41.9) Active confi rmed Problem Sinusitis (77327489) Sinusitis (J32.9) Active confirmed Problem 456932831 Environmental allergies (Z91.09) Active confirmed Problem Iron deficiency anemia (48848823) Iron deficiency anemia (D50.9) Active confirmed Problem 717425025 Seasonal allergies (J30.2) Active confirmed Problem 629169777402097 Moderate persistent asthma with acute exacerbation (J45.41) Active confirmed Problem 416010202 Lupus (M32.9) Active confirmed Problem 47746026 Sciatica of left side (M54.32) Active confirmed Problem 221838304 Hay fever (J30.1) Active confirmed Problem 610210306437221 Right sided sciatica (M54.31) Active confirmed Problem 63642061 Pagophagia (F50.89) Active confirmed Problem 32179870 Hypertension, unspecified type (I10) Active confirmed Problem Spinal cord compression (72416940) Spinal cord compression (G95.20) Active confirmed Problem 132313999748051 Perimenopause (N95.1) Active confirmed Problem 137225785 Allergy, initial encounter (T78.40XA) Active confirmed Problem 780408743394455 Episodic migraine (G43.909) Active confirmed Problem 441450631 Fibromyalgia syndrome (M79.7) Active confirmed Problem 96557945 Acute allergic rhinitis (J30.9) Active confirmed Vital Signs Blood pressure diastolic 70 mm Hg 11/01/2024 andrzej ght is up 10 pounds since 10-11-24 Height 62 in 02/04/2025 weight is 160 a t home BP not taken at home no temp but feels warm Blood pressure systolic 122 mm Hg 11/01/2024 weig ht is up 10 pounds since 10-11-24 Weight 160 lbs 02/04/2025 weight is 160 a t home BP not taken at home no temp but feels warm BMI 29.26 kg/m2 02/04/2025 weight is 160 a t home BP not taken at home no temp but feels warm Encounters Encounter Location Date Provider Diagnosis Chadwick Jefferson MD [address] [place] [id number] 11/01/2024 Chadwick Whaleyardicelso Hematuria R31.9 and Gastroenteritis K52.9 Chadwick Jefferson MD [address] [place] [id number] 04/19/2024 Chadwick Jefferson Moderate persistent asthma with acute exacerbation J45.41 and Hypertension, unspecified type I10 Chadwick Jefferson MD [address] [place] [id number] 06/29/2024 Chadwick Jefferson Sinusitis J32.9 Chadwick Jefferson MD [address] [place] [id number] 10/11/2024 Chadwick Jefferson Arthralgia M25.50 Chadwick Jefferson MD [address] [place] [id number] 02/04/2025 Chadwick Jefferson Sinusitis J32.9 Chadwick Jefferson MD [address] [place] [id number] 05/29/2024 Chadwick Jefferson MD [address] [place] [id number] 10/16/2024 Chadwick Jefferson MD [address] [place] [id number] 10/30/2024 Chadwick Jefferson Assessments Encounter Date Diagnosis (ICD Code) Assessment Notes Treatment Notes Treatment Clinical Notes Section Notes 11/01/2024 Hematuria (ICD-10 - R31.9) ORDER PRINTED AND GIVEN TO PATIENT TO RETURN SPECIMEN, pending lab 11/01/2024 Gastroenteritis (ICD-10 - K52.9) patient verbalized understanding of medication and directions for use 04/19/2024 Moderate persistent asthma with acute exacerbation [...] PATIENT REQUESTS THAT ORDER BE FAXED TO [facility] 02/04/2025 Sinusitis (ICD-10 - J32.9) patient verbalized understandng of medication and directions for use 04/19/2024 Other Work note faxed driss riggs [...] Count Auto Diff 5 Erythrocyte Sedimentation Rate Urinalysis and Microscopic 11/01/2024 Comprehensive [place]. Panel Fast TESSA Reflex Titer and Pattern 10/11/2024 Rheumatoid Factor 10/11/2024 Next Appt Details Provider Name:Chadwick Garnica Deidra kumarir, 06/06/2025 03:00:00 PM, [address], [address], [place], [place], [id number], Insurance Providers Payer Name Payer Address Payer Phone Subscriber Number Group Number Insured Name Patient Relationship to Insured Coverage Start Date Coverage End Date [facility] [address] [address] [place] [phone] [id number] Marivel Lopez Self - patient is the insured Medical (General) History Medical History History ICD Code hysterectomy and salpingectomy. ovaries still there
== END 2025-03-14 15:53 | disposition home or self-care (01) ==
LOC: HO.HGI 14:44
PROVIDERS: PCP Internal Medicine; Visit Provider Nurse Practitioner
DX: Z01.818 Encounter for other preprocedural examination (principal); Z12.11 Encounter for screening for malignant neoplasm of colon; K21.9 Gastro-esophageal reflux disease without esophagitis
CPT/HCPCS: 99214